=== PATIENT | female | born 1965 | race Caucasian/White ===

== ENCOUNTER → 2017-09-20 10:36 | Outpatient (CLI) | payer MEDICARE, MEDICAID, SELFPAY ==
[2017-09-20 11:06] LABS: Basophils # 0.1 K/mm3 (0-0.2); Basophils % 0.6 % (0.1-2.0); Eosinophils # 0.6 K/mm3 (0.0-0.4); Eosinophils % 7.2 % (0.1-12.0); Hematocrit 47.4 % (37.0-47.0); Hemoglobin 14.7 g/dL (12.2-16.2); Lymphocytes # 1.6 K/mm3 (0.7-4.5); Lymphocytes % 20.6 K/mm3 (10-50); Mean Corpuscular HGB Conc 31.1 g/dL (31.8-35.4); Mean Corpuscular Hemoglobin 26.6 pg (27.0-31.2); Mean Corpuscular Volume 85.6 fl (81-99); Mean Platelet Volume 8.2 fl (7.4-10.4); Monocytes # 0.2 K/mm3 (0.1-1.0); Neutrophils # 5.4 K/mm3 (1.8-7.8); Neutrophils % 68.6 % (37.0-80.0); Platelet Count 258 K/mm3 (142-424); Red Blood Count 5.54 M/mm3 (4.20-5.40); Red Cell Distribution Width 14.7 % (11.5-17.5); White Blood Count 7.9 K/mm3 (4.8-10.8)
[2017-09-20 12:53] LABS: Alanine Aminotransferase 47 U/L (12-78); Albumin Level 3.7 gm/dL (3.4-5.0); Albumin/Globulin Ratio 1.2 (1.1-1.8); Alkaline Phosphatase 180 U/L (46-116); Anion Gap 9.2 mEq/L (5-15); Aspartate Amino Transferase 21 U/L (15-37); Bilirubin,Total 0.3 mg/dL (0.2-1.0); Blood Urea Nitrogen 7 mg/dL (7-18); Calcium 8.6 mg/dL (8.5-10.1); Carbon Dioxide 32 mmol/L (21.0-32.0); Chloride 102 mmol/L (98-107); Chol/HDL Ratio 4.8 (1-3.5); Cholesterol 157 mg/dL (140-200); Creatinine,Serum 0.75 mg/dL (0.55-1.02); Estimated Glomerular Filt Rate > 60 ml/min (>60); GFR (African American) > 60 ML/MIN (>60); Glucose 152 mg/dL (74-106); HDL Cholesterol 33 mg/dL (29-89); LDL Cholesterol 87 mg/dL (0-130); Potassium 4.2 mmoL/L (3.5-5.1); Sodium 139 mmol/L (136-145); Total Protein,Serum 6.7 gm/dL (6.4-8.2); Triglycerides 186 mg/dL (30-200); VLDL Cholesterol 37 mg/dL (0-40)
[2017-09-20 13:28] LABS: Erythrocyte Sedimentation Rate 0 mm/hr (0-30)
[2017-09-20 13:29] LABS: Ferritin 243 ng/mL (8-388); Thyroid Stimulating Hormone 2.22 uIU/ml (0.358-3.740)
[2017-09-22 17:14] LABS: Vitamin B12 644 pg/mL (232-1245)
== END ==
PROVIDERS: PCP Nurse Practitioner Family; Visit Provider Nurse Practitioner Family
DX: D50.9 Iron deficiency anemia, unspecified (principal); I10 Essential (primary) hypertension; R53.82 Chronic fatigue, unspecified; M79.7 Fibromyalgia; R73.9 Hyperglycemia, unspecified
CPT/HCPCS: 36415; 80053; 80061; 82607; 82728; 84443; 85025; 85651

== ENCOUNTER → 2018-03-08 15:53 | Outpatient (CLI) | payer MEDICARE, MEDICAID, SELFPAY ==
--- NOTE | 2018-03-08 15:59 | XR_ITS ---
XR foot LT min 3V Ordering Physician: Stephenie Oakes Patient Age: 53 years: Female HISTORY: ITS.REASON: LEFT FOOT PAIN Left foot pain. Injury yesterday. Pain at the top of foot. TECHNIQUE: 3 views of the left foot COMPARISON : FINDINGS No fracture nor dislocation. Toes. Metatarsals intact. The tarsals unremarkable. Mild diffuse soft tissue swelling at the foot most evident dorsally. IMPRESSION: No fracture . Soft tissue swelling of foot most evident dorsal
== END ==
PROVIDERS: PCP Nurse Practitioner Family; Visit Provider Nurse Practitioner Family
DX: M79.672 Pain in left foot (principal)
CPT/HCPCS: 73630

== ENCOUNTER → 2018-03-23 10:28 | Outpatient (CLI) | payer MEDICARE, MEDICAID, SELFPAY ==
--- NOTE | 2018-03-23 10:32 | MM_ITS ---
MM Dig screening mamm BI w/CAD ORDERING PHYSICIAN : Stephenie Oakes PATIENT AGE: 53 years GENDER: Female COMPARISON: November 2016, December 2014, April 2012. INDICATION: ITS.REASON: SCREENING No hormones no new complaints Family history. Maternal grandmother with breast cancer age 70 postmenopausal. TECHNIQUE: Standard CC and MLO images were obtained. R2 CAD reviewed. . additional CC nipple profile views bilateral included FINDINGS: Minimal fibrotic elements with moderate fatty replacement No dominant mass nor suspicious calcifications. No architectural distortion. CAD computer review highlights no areas of concern Bilateral follow-up one year adequate IMPRESSION: No areas of significant concern Stable bilateral mammogram. Follow up one year BI-RADS Category: 1 Negative RECOMMENDED FOLLOW-UP: 1YR 1 YEAR FOLLOW-UP (A letter has been sent to the patient regarding results of the study.)
[2018-03-23 11:13] LABS: Basophils # 0.1 K/mm3 (0-0.2); Basophils % 0.7 % (0.1-2.0); Eosinophils # 0.3 K/mm3 (0.0-0.4); Eosinophils % 4.3 % (0.1-12.0); Hematocrit 46.3 % (37.0-47.0); Hemoglobin 14.6 g/dL (12.2-16.2); Lymphocytes # 1.7 K/mm3 (0.7-4.5); Lymphocytes % 21.2 K/mm3 (10-50); Mean Corpuscular HGB Conc 31.6 g/dL (31.8-35.4); Mean Corpuscular Volume 85.7 fl (81-99); Mean Platelet Volume 8.4 fl (7.4-10.4); Monocytes # 0.2 K/mm3 (0.1-1.0); Monocytes % 2.4 % (1.7-9.3); Neutrophils # 5.7 K/mm3 (1.8-7.8); Neutrophils % 71.4 % (37.0-80.0); Platelet Count 233 K/mm3 (142-424); Red Cell Distribution Width 14.4 % (11.5-17.5); White Blood Count 7.9 K/mm3 (4.8-10.8)
[2018-03-23 11:35] LABS: Hemoglobin A1C 7.8 % (0.0-7.0)
[2018-03-23 12:13] LABS: Alanine Aminotransferase 55 U/L (12-78); Albumin Level 3.6 gm/dL (3.4-5.0); Albumin/Globulin Ratio 1.2 (1.1-1.8); Alkaline Phosphatase 167 U/L (46-116); Anion Gap 12.1 mEq/L (5-15); Aspartate Amino Transferase 29 U/L (15-37); Bilirubin,Total 0.2 mg/dL (0.2-1.0); Blood Urea Nitrogen 9 mg/dL (7-18); Calcium 8.7 mg/dL (8.5-10.1); Carbon Dioxide 30 mmol/L (21.0-32.0); Chloride 101 mmol/L (98-107); Cholesterol 144 mg/dL (140-200); Estimated Glomerular Filt Rate 75 ml/min (>60); GFR (African American) 91 ML/MIN (>60); Glucose 174 mg/dL (74-106); HDL Cholesterol 24 mg/dL (29-89); LDL Cholesterol 91 mg/dL (0-130); Potassium 4.1 mmoL/L (3.5-5.1); Sodium 139 mmol/L (136-145); Total Protein,Serum 6.6 gm/dL (6.4-8.2); Triglycerides 144 mg/dL (30-200); VLDL Cholesterol 29 mg/dL (0-40)
== END ==
PROVIDERS: Family Provider Nurse Practitioner Family; PCP Nurse Practitioner Family; Visit Provider Nurse Practitioner Family
DX: Z12.31 Encounter for screening mammogram for malignant neoplasm of breast (principal); I10 Essential (primary) hypertension; R73.9 Hyperglycemia, unspecified; J44.9 Chronic obstructive pulmonary disease, unspecified
CPT/HCPCS: 36415; 77067; 80053; 80061; 83036; 85025

== ENCOUNTER → 2018-04-03 08:41 | Outpatient (CLI) | payer MEDICARE, MEDICAID, SELFPAY | PROVIDERS: Family Provider Nurse Practitioner Family; PCP Nurse Practitioner Family; Visit Provider Nurse Practitioner Family | DX: Z71.3 Dietary counseling and surveillance (principal); E11.9 Type 2 diabetes mellitus without complications | CPT/HCPCS: 97802; G0108 ==

== ENCOUNTER → 2018-07-09 11:33 | Outpatient (CLI) | payer MEDICARE, MEDICAID, SELFPAY ==
[2018-07-09 11:48] LABS: Adenovirus F 40/41, stool Not Detected (NotDetected); Astrovirus Not Detected (NotDetected); Campylobacter Not Detected (NotDetected); Clostridium Difficile A/B, PCR Not Detected (NotDetected); Cryptosporidium Not Detected (NotDetected); Cyclospora Cayetanesis Not Detected (NotDetected); Entamoeba histolytica Not Detected (NotDetected); Enteroaggregative E coli Not Detected (NotDetected); Enteropathogenic E coli Not Detected (NotDetected); Enterotoxigenic E coli Not Detected (NotDetected); Giardia lamblia Not Detected (NotDetected); Norovirus Not Detected (NotDetected); Plesimonas Shigalloides, PCR Not Detected (NotDetected); Rotavirus A Not Detected (NotDetected); Salmonella, PCR Not Detected (NotDetected); Sapovirus Not Detected (NotDetected); Shiga-like toxin E coli Not Detected (NotDetected); Shigella Enterovasive E coli Not Detected (NotDetected); Vibrio Cholerae Not Detected (NotDetected); Vibrio, PCR Not Detected (NotDetected); Yersinia Entercolitica, PCR Not Detected (NotDetected)
[2018-07-09 12:07] LABS: Basophils % 0.5 % (0.1-2.0); Eosinophils # 0.2 K/mm3 (0.0-0.4); Eosinophils % 2.9 % (0.1-12.0); Hematocrit 40.8 % (37.0-47.0); Hemoglobin 13.4 g/dL (12.2-16.2); Lymphocytes # 1.7 K/mm3 (0.7-4.5); Lymphocytes % 20.9 K/mm3 (10-50); Mean Corpuscular HGB Conc 32.8 g/dL (31.8-35.4); Mean Corpuscular Hemoglobin 27.9 pg (27.0-31.2); Mean Corpuscular Volume 84.9 fl (81-99); Mean Platelet Volume 8.4 fl (7.4-10.4); Monocytes # 0.3 K/mm3 (0.1-1.0); Monocytes % 3.3 % (1.7-9.3); Neutrophils % 72.3 % (37.0-80.0); Platelet Count 238 K/mm3 (142-424); Red Blood Count 4.81 M/mm3 (4.20-5.40); Red Cell Distribution Width 15.3 % (11.5-17.5); White Blood Count 8.3 K/mm3 (4.8-10.8)
[2018-07-09 12:27] LABS: Hemoglobin A1C 6.7 % (0.0-7.0)
[2018-07-09 12:43] LABS: Alanine Aminotransferase 46 U/L (12-78); Albumin Level 3.3 gm/dL (3.4-5.0); Albumin/Globulin Ratio 1.1 (1.1-1.8); Alkaline Phosphatase 132 U/L (46-116); Anion Gap 9.3 mEq/L (5-15); Aspartate Amino Transferase 24 U/L (15-37); Bilirubin,Total 0.3 mg/dL (0.2-1.0); Blood Urea Nitrogen 11 mg/dL (7-18); Calcium 8.6 mg/dL (8.5-10.1); Carbon Dioxide 32 mmol/L (21.0-32.0); Chloride 103 mmol/L (98-107); Creatinine,Serum 0.71 mg/dL (0.55-1.02); Estimated Glomerular Filt Rate 86 ml/min (>60); GFR (African American) 105 ML/MIN (>60); Globulin 3.1 gm/dl (1.3-3.2); Glucose 123 mg/dL (74-106); Potassium 4.3 mmoL/L (3.5-5.1); Sodium 140 mmol/L (136-145); Total Protein,Serum 6.4 gm/dL (6.4-8.2)
== END ==
PROVIDERS: PCP Nurse Practitioner Family; Visit Provider Nurse Practitioner Family
DX: E11.9 Type 2 diabetes mellitus without complications (principal); R39.15 Urgency of urination
CPT/HCPCS: 36415; 80053; 83036; 85025; 87507

== ENCOUNTER → 2018-08-14 13:45 | Outpatient (CLI) | payer MEDICARE, MEDICAID, SELFPAY ==
--- NOTE | 2018-08-14 13:47 | CT_ITS ---
CT abdomen pelvis wo con CLINICAL INDICATION: Chronic UTIs, urinary tract infection ITS.REASON: chronic uti ORDERING PHYSICIAN: Troy Silverio MD PATIENT AGE: 53 years COMPARISON: 07/28/2015 TECHNIQUE: Axial images obtained with sagittal and coronal reformats. All CT scans at the facility use one or more dose reduction, viz: automated exposure control, ma/kV adjustment per patient size (including targeted exams where dose is matched to indication, i.e. head), or iterative reconstruction technique. PROCEDURE: Oral Contrast: None IV Contrast: None . FINDINGS: No acute finding in the lung bases. There is diffuse fatty liver infiltration. There has been a prior cholecystectomy. Spleen, adrenal glands, and pancreas have an unremarkable unenhanced appearance. No renal or ureteral calculi. There is a isodensity involving the medial aspect of the left kidney at 16 mm suggesting a small renal cyst. There are scattered small lymph nodes in the mesentery. Unremarkable appendix. No evidence of intestinal obstruction or free air. Prior hysterectomy. No evidence of diverticulitis. No pelvic mass abnormal fluid collection or focal inflammatory change evident within the pelvis. No acute bony findings. IMPRESSION: 1. No acute abdominal or pelvic findings. 2. Diffuse fatty liver 3. Possible small left renal cyst which may be confirmed with ultrasound if clinically warranted
== END ==
PROVIDERS: PCP Nurse Practitioner Family; Visit Provider Urology
DX: N39.0 Urinary tract infection, site not specified (principal)
CPT/HCPCS: 74176

== ENCOUNTER → 2019-01-03 10:46 | Outpatient (CLI) | payer MEDICARE, MEDICAID, SELFPAY ==
[2019-01-03 11:22] LABS: Basophils # 0.1 K/mm3 (0-0.2); Basophils % 0.6 % (0.1-2.0); Eosinophils # 0.3 K/mm3 (0.0-0.4); Hematocrit 42.4 % (37.0-47.0); Hemoglobin 14.1 g/dL (12.2-16.2); Lymphocytes # 1.5 K/mm3 (0.7-4.5); Lymphocytes % 18.2 % (10-50); Mean Corpuscular HGB Conc 33.1 g/dL (31.8-35.4); Mean Corpuscular Hemoglobin 26.9 pg (27.0-31.2); Mean Corpuscular Volume 81.1 fl (81-99); Mean Platelet Volume 8.2 fl (7.4-10.4); Monocytes # 0.3 K/mm3 (0.1-1.0); Neutrophils # 6.4 K/mm3 (1.8-7.8); Neutrophils % 75.1 % (37.0-80.0); Platelet Count 279 K/mm3 (142-424); Red Blood Count 5.23 M/mm3 (4.20-5.40); Red Cell Distribution Width 15.2 % (11.5-17.5); White Blood Count 8.5 K/mm3 (4.8-10.8)
[2019-01-03 13:44] LABS: Alanine Aminotransferase 38 U/L (12-78); Albumin Level 3.5 gm/dL (3.4-5.0); Albumin/Globulin Ratio 1.2 (1.1-1.8); Alkaline Phosphatase 114 U/L (46-116); Anion Gap 13.1 mEq/L (5-15); Aspartate Amino Transferase 14 U/L (15-37); Bilirubin,Total 0.3 mg/dL (0.2-1.0); Blood Urea Nitrogen 12 mg/dL (7-18); Calcium 7.8 mg/dL (8.5-10.1); Carbon Dioxide 32 mmol/L (21.0-32.0); Chloride 99 mmol/L (98-107); Chol/HDL Ratio 6.3 (1-3.5); Cholesterol 145 mg/dL (140-200); Creatinine,Serum 0.83 mg/dL (0.55-1.02); Estimated Glomerular Filt Rate 72 ml/min (>60); GFR (African American) 87 ML/MIN (>60); Glucose 147 mg/dL (74-106); HDL Cholesterol 23 mg/dL (29-89); LDL Cholesterol 83 mg/dL (0-130); Potassium 3.1 mmoL/L (3.5-5.1); Sodium 141 mmol/L (136-145); Total Protein,Serum 6.5 gm/dL (6.4-8.2); Triglycerides 195 mg/dL (30-200); VLDL Cholesterol 39 mg/dL (0-40)
== END ==
PROVIDERS: Visit Provider Nurse Practitioner Family
DX: Z00.00 Encounter for general adult medical examination without abnormal findings (principal); E11.9 Type 2 diabetes mellitus without complications
CPT/HCPCS: 36415; 80053; 80061; 83036; 85025

== ENCOUNTER → 2019-02-07 11:51 | Outpatient (CLI) | payer MEDICARE, MEDICAID, SELFPAY ==
[2019-02-07 13:07] LABS: Anion Gap 15.5 mEq/L (5-15); Blood Urea Nitrogen 10 mg/dL (7-18); Calcium 8.3 mg/dL (8.5-10.1); Carbon Dioxide 28 mmol/L (21.0-32.0); Chloride 99 mmol/L (98-107); Creatinine,Serum 0.82 mg/dL (0.55-1.02); Estimated Glomerular Filt Rate 73 ml/min (>60); GFR (African American) 89 ML/MIN (>60); Glucose 211 mg/dL (74-106); Potassium 3.5 mmoL/L (3.5-5.1); Sodium 139 mmol/L (136-145)
== END ==
PROVIDERS: Visit Provider Nurse Practitioner Family
DX: E87.6 Hypokalemia (principal)
CPT/HCPCS: 36415; 80048

== ENCOUNTER → 2019-03-14 10:51 | Outpatient (CLI) | payer MEDICARE, MEDICAID, SELFPAY ==
--- NOTE | 2019-03-14 11:02 | XR_ITS ---
XR KUB HISTORY: ITS.REASON: INCONTINENCE OF FECES ORDERING PHYSICIAN: Stephenie Oakes APRN PATIENT AGE: 54 years COMPARISON: None FINDINGS: The bowel gas pattern is unremarkable. No obvious obstruction.. No abnormal calcifications are evident. No obvious renal or ureteral calculi.. There are clips from cholecystectomy in right upper quadrant. There is no acute osseous process. There is a 3 mm round sclerotic density overlying the inferior left ischium. IMPRESSION: No acute process. Cholecystectomy. Left ischial small sclerotic density could be benign bone island. Correlate with history to rule out osteoblastic process.
--- NOTE | 2019-03-14 11:03 | XR_ITS ---
XR knee LT 4V HISTORY: ITS.REASON: LT KNEE PAIN,CHRONIC PAIN ORDERING PHYSICIAN: Stephenie Oakes APRN PATIENT AGE: 54 years COMPARISON: None FINDINGS: No fracture or dislocation. No lytic or blastic change. Normal mineralization. No significant arthritic changes evident. No other significant findings IMPRESSION: Negative Knee
== END ==
PROVIDERS: PCP Nurse Practitioner Family; Visit Provider Nurse Practitioner Family
DX: R15.9 Full incontinence of feces (principal); M25.562 Pain in left knee; G89.29 Other chronic pain
CPT/HCPCS: 73564; 74018

== ENCOUNTER → 2019-03-28 14:13 | Outpatient (CLI) | payer MEDICARE, MEDICAID, SELFPAY ==
--- NOTE | 2019-03-28 14:17 | MR_ITS ---
MR lumbar spine wo con, MR 3-d myelogram/MRCP HISTORY: Numbness from waist down. [id number]. Tingling and pain down bilateral legs. No trauma. ITS.REASON: DDD, LOW BACK PAIN ORDERING PHYSICIAN: Stephenie Oakes APRN PATIENT AGE: 54 years Comparison: MRI 03-25-16. TECHNIQUE: Standard multiplanar multiecho sequences are performed without contrast. 3-D MIP and myelographic images are also rendered and reviewed FINDINGS: There is normal alignment. The spinal cord ends at the T12-L1 level. T11-T12: Unremarkable. T12-L1: Unremarkable. L1-L2: Mild degenerative disc disease with minimal bulging disc. L2-L3: Unremarkable. L3-L4: Mild degenerative disc disease with minimal bulging disc. L4-L5: Mild concentric bulging disc with minimal anterolisthesis of L4 on L5 with mild facet and ligamentum flavum hypertrophy and mild bilateral lateral recess and foraminal narrowing. L5-S1: Mild facet hypertrophic change. No disc herniation or bony canal stenosis IMPRESSION: Mild degenerative changes as described above. Please see above for detailed description at each level. No significant change from the previous exam. No disc herniation or bony canal stenosis
--- NOTE | 2019-03-28 15:09 | CT_ITS ---
CT pelvis wo con INDICATION: Anterior and posterior pelvic pain, evaluate left ischium, possible blastic lesion, ITS.REASON: DDD,LOW BACK PAIN, ORDERING PHYSICIAN: Stephenie Oakes APRN PATIENT AGE: 54 years COMPARISON: 03/14/2019 TECHNIQUE: Contrast Used:None Oral Contrast: None Axial images were obtained. Sagittal and coronal reformatted images are reviewed as well. All CT scans at the facility use one or more dose reduction, viz: automated exposure control, ma/kV adjustment per patient size (including targeted exams where dose is matched to indication, i.e. head), or iterative reconstruction technique. FINDINGS: There is a well-circumscribed sclerotic focus in the left ischium measuring approximately 6 mm consistent with a bone island. This does appear stable. There are facet arthritic changes at L4-L5 and L5-S1 with bilateral foraminal narrowing. No pelvic mass abnormal fluid collection or other significant anomalies. There has been a prior hysterectomy. IMPRESSION: 1. Sclerotic focus in the left ischium appears benign the bone island. 2. Facet arthritic changes in the lumbar spine
== END ==
PROVIDERS: PCP Nurse Practitioner Family; Visit Provider Nurse Practitioner Family
DX: M54.5 Low back pain (principal); M51.37 Other intervertebral disc degeneration, lumbosacral region; M95.9 Acquired deformity of musculoskeletal system, unspecified
CPT/HCPCS: 72148; 72192; 76376

== ENCOUNTER → 2019-05-27 09:20 | Outpatient (CLI) | payer MEDICARE, MEDICAID, SELFPAY ==
[2019-05-27 10:00] LABS: Hemoglobin A1C 6.7 % (0.0-7.0)
[2019-05-27 10:05] LABS: Basophils % 0.4 % (0.1-2.0); Eosinophils # 0.3 K/mm3 (0.0-0.4); Eosinophils % 4.1 % (0.1-12.0); Hematocrit 41.3 % (37.0-47.0); Hemoglobin 13.3 g/dL (12.2-16.2); Lymphocytes # 1.7 K/mm3 (0.7-4.5); Lymphocytes % 19.9 % (10-50); Mean Corpuscular HGB Conc 32.3 g/dL (31.8-35.4); Mean Corpuscular Volume 80.4 fl (81-99); Mean Platelet Volume 7.5 fl (7.4-10.4); Monocytes # 0.4 K/mm3 (0.1-1.0); Monocytes % 4.4 % (1.7-9.3); Neutrophils # 5.9 K/mm3 (1.8-7.8); Neutrophils % 71.1 % (37.0-80.0); Platelet Count 346 K/mm3 (142-424); Red Blood Count 5.14 M/mm3 (4.20-5.40); White Blood Count 8.3 K/mm3 (4.8-10.8)
[2019-05-27 10:55] LABS: Alanine Aminotransferase 28 U/L (12-78); Albumin Level 3.3 gm/dL (3.4-5.0); Albumin/Globulin Ratio 1.1 (1.1-1.8); Alkaline Phosphatase 116 U/L (46-116); Anion Gap 9.6 mEq/L (5-15); Aspartate Amino Transferase 16 U/L (15-37); Bilirubin,Total 0.3 mg/dL (0.2-1.0); Blood Urea Nitrogen 9 mg/dL (7-18); Calcium 8.2 mg/dL (8.5-10.1); Carbon Dioxide 35 mmol/L (21.0-32.0); Chloride 100 mmol/L (98-107); Chol/HDL Ratio 5.7 (1-3.5); Cholesterol 137 mg/dL (140-200); Creatinine,Serum 0.74 mg/dL (0.55-1.02); Estimated Glomerular Filt Rate 82 ml/min (>60); GFR (African American) 99 ML/MIN (>60); Glucose 138 mg/dL (74-106); HDL Cholesterol 24 mg/dL (29-89); LDL Cholesterol 78 mg/dL (0-130); Potassium 3.6 mmoL/L (3.5-5.1); Sodium 141 mmol/L (136-145); Total Protein,Serum 6.3 gm/dL (6.4-8.2); Triglycerides 176 mg/dL (30-200); VLDL Cholesterol 35 mg/dL (0-40)
== END ==
PROVIDERS: Visit Provider Nurse Practitioner Family
DX: E11.9 Type 2 diabetes mellitus without complications (principal)
CPT/HCPCS: 36415; 80053; 80061; 83036; 85025

== ENCOUNTER → 2019-06-17 09:11 | Outpatient (CLI) | payer MEDICARE, MEDICAID, SELFPAY ==
--- NOTE | 2019-06-17 09:13 | XR_ITS ---
PROCEDURE: XR DEXA AXIAL SKELETON CLINICAL HISTORY: POST MENOPAUSAL SCREENING COMPARISON: ABDPELW/O CT ABD PELVIS W/O CONTRAST from 07/28/2015 FINDINGS: Lumbar spine (L1 through L4), BMD 1.02, T-score -1.3. There is some false elevation of the bone density measurement at the L1 level which could be from sclerotic changes overlying the L1 spinous process. Right hip (neck), BMD 0.84, T-score -1.4. IMPRESSION: Osteopenia without osteoporosis. Possible sclerotic changes involving L1 spinous process. Suggest routine plain film exam of lumbar spine to further evaluate. Dictated by: Ilya Vargas 06/17/2019 12:05 Electronically signed by Ilya Vargas in [place] 06/17/2019 12:05
--- NOTE | 2019-06-17 09:14 | MM_ITS ---
PROCEDURE: MM DIG SCREENING MAMM BI W/CAD CLINICAL INDICATION: SCREENING There is a history of breast cancer in the patient's maternal grandmother. COMPARISON: [facility] DIG MAMM-SCREEN LU from 01/15/2015 [facility] DIG MAMM-SCREEN LU W/CAD from 12/02/2016 [facility] MM Dig screening mamm BI w/CAD from 03/23/2018 TECHNIQUE: Standard CC and MLO images were obtained. R2 CAD reviewed. FINDINGS: Scattered fibroglandular densities are seen in both breasts and the findings of bilateral and symmetrical. However there is a possible asymmetric density upper-outer quadrant left breast which was not definitely seen on the most recent study. It is best seen on the CC view it shows slightly irregular borders and recommend the patient return for spot compression views and ultrasound may be necessary as well. There are no suspicious microcalcifications. IMPRESSION: Fibrofatty parenchyma with possible new asymmetric lesion upper outer quadrant left breast BI-RAD Category: 0 Need Additional Imaging Evaluation FOLLOW-UP: IMM Immediate Follow-up Recommended (A letter has been sent to the patient regarding results of the study.) Dictated by: Dr. Charles Still MD 06/18/2019 13:[address] Charles Still MD in [place] 06/18/2019 13:44
== END ==
PROVIDERS: PCP Nurse Practitioner Family; Visit Provider Nurse Practitioner Family
DX: Z13.820 Encounter for screening for osteoporosis (principal); Z78.0 Asymptomatic menopausal state; Z12.31 Encounter for screening mammogram for malignant neoplasm of breast
CPT/HCPCS: 77067; 77080

== ENCOUNTER 2019-06-17 14:30 | Outpatient (RCR) | payer MEDICARE, MEDICAID, SELFPAY ==
--- NOTE | 2019-06-06 13:34 | HMH.PTOPEV ---
PT Outpatient Evaluation Rehab PT Outpatient Evaluation Start: 06/06/19 11:11 Freq: Status: Active Protocol: Document 06/06/19 11:12 DEMETRIO (Rec: 06/06/19 11:50 DEMETRIO [id number]) Electronically Signed By Temo Mayer, PT 06/06/19 11:12 Outpatient Therapy Subjective History Subjective History Pt reports h/o chronic L knee pain beginning ~1 yr ago, however, reports exacerbation over the last ~3-4 months. Pt reports mostly anterior region L knee pain, with some referred pain into [place] area. Pt reports recent injection ~1 week ago 'seemed to help a little at first, but it's about the same now'. Chief Complaint Pain,Stiff,Clicks,Swelling, Weakness Symptom Type Ache,Sharp,Dull Symptoms Relieved By Rest/Positioning Symptoms Aggravated By Standing,Physical Activity, Walking Prior Functional Limitations Housework,Standing,Walking Current Functional Limitations Housework,Standing,Squatting, Walking,Stairs Symptom Description Constant but Variable Level of pain today (0-10) 9 Pain scale - at its best (0-10) 8 Pain scale - at its worst (0-10) 10 Hip/Knee Eval Gait Observation General Gait Pattern Observation Antalgic Gait Assistive Device Assistive Devices None / NA Palpation Tenderness left Knee Palpation Finding Tenderness Knee Palpation Overall Comment 3/4 medial and lateral jt line MMT right Hip Flexion Strength Grade 4 Good Hip Abduction Strength Grade 4- Good- Hip Adduction Strength Grade 4- Good- Hip Extension Strength Grade 4- Good- Hip External Rotation Strength Grade 4 Good Hip Internal Rotation Strength Grade 4 Good Knee Extension Strength Grade 5 Normal Knee Flexion Strength Grade 5 Normal left Hip Flexion Strength Grade 4 Good Hip Abduction Strength Grade 4- Good- Hip Adduction Strength Grade 4- Good- Hip Extension Strength Grade 4- Good- Hip External Rotation Strength Grade 4 Good Hip Internal Rotation Strength Grade 4- Good- Knee Extension Strength Grade 4 Good Knee Flexion Strength Grade 4 Good ROM right Knee Flexion Active Range of Motion ( 0-135 degrees) Knee ROM Reason Not Measured Within Functional Limits left Knee Flexion Active Range of Motion ( 0-120 degrees) Knee ROM Limitations Pain Effusion joint effusion knee exa
== END 2019-06-17 14:35 | disposition home or self-care (01) ==
LOC: PT 14:30
PROVIDERS: PCP Nurse Practitioner Family; Visit Provider Orthopaedic Surgery
DX: M22.42 Chondromalacia patellae, left knee (principal)
CPT/HCPCS: 97010; 97014; 97033; 97035; 97110; 97163; G0283

== ENCOUNTER → 2019-07-01 14:31 | Outpatient (CLI) | payer MEDICARE, MEDICAID, SELFPAY ==
--- NOTE | 2019-07-01 14:33 | MM_ITS ---
PROCEDURE: MM DIG MAMM DX UNILAT LT CAD CLINICAL INDICATION: ABNORMAL MAMM possible new asymmetric density COMPARISON: [facility] DIG MAMM-SCREEN LU W/CAD from 12/02/2016 [facility] MM Dig screening mamm BI w/CAD from 03/23/2018 MM DIG SCREENING MAMM BI W/CAD from 06/17/2019 TECHNIQUE: Standard CC and MLO images were obtained. Additional spot compression views obtained in the MLO and CC projection R2 CAD reviewed. FINDINGS: The possible asymmetric density appears to press out on the additional views and is likely simply an area of asymmetric glandular tissue. There is no evidence of architectural distortion. IMPRESSION: Negative problem solving views BI-RAD Category: 1 Negative FOLLOW-UP: 1YR 1 Year Follow-up (A letter has been sent to the patient regarding results of the study.) Dictated by: Dr. Charles Stlil MD 07/04/2019 16:[address] Charles Still MD in [place] 07/04/2019 16:21
--- NOTE | 2019-07-01 14:34 | US_ITS ---
PROCEDURE: US BREAST LT COMPLETE CLINICAL INDICATION: ABNORMAL MAMM Possible new asymmetric density COMPARISON: No exams were available for comparison FINDINGS: Mild diffuse echogenic parenchymal pattern is seen with no suspicious solid lesions seen. There is a tiny benign-appearing cystic lesion at the 3 o'clock position near the nipple. There is normal appearing node in the axilla. IMPRESSION: Essentially negative ultrasound left breast recommend the patient continue with yearly screening mammography Dictated by: Dr. Charles Still MD 07/04/2019 16:[address] Charles Still MD in [place] 07/04/2019 16:24
== END ==
PROVIDERS: PCP Nurse Practitioner Family; Visit Provider Nurse Practitioner Family
DX: R92.8 Other abnormal and inconclusive findings on diagnostic imaging of breast (principal)
CPT/HCPCS: 76641; 77065

== ENCOUNTER → 2019-07-11 10:53 | Outpatient (CLI) | payer MEDICARE, MEDICAID, SELFPAY ==
--- NOTE | 2019-07-11 11:00 | XR_ITS ---
PROCEDURE: XR LUMBAR SPINE MIN 4V CLINICAL INDICATION: BONYSCLEROSIS COMPARISON: TSPWO CT THORACIC SPINE W/O CONT. from 10/17/2012 XR DEXA AXIAL SKELETON from 06/17/2019 FINDINGS: Normal alignment. No fracture or dislocation. L1-L2 but no sclerotic lesion apparent. There is mild anterolisthesis of L4 on L5 of 3 mm and mild degenerative disc disease at L5-S1 along with mild facet arthritic change at L5-S1. IMPRESSION: Mild degenerative changes. No sclerotic/blastic lesions apparent Dictated by: Frank Augustine MD 07/11/2019 14:15 Electronically signed by Frank Augustine MD in [place] 07/11/2019 14:15
== END ==
PROVIDERS: PCP Internal Medicine Adolescent Medicine; Visit Provider Nurse Practitioner Family
DX: Q78.2 Osteopetrosis (principal)
CPT/HCPCS: 72110

== ENCOUNTER → 2019-07-25 13:46 | Outpatient (CLI) | payer MEDICARE, BC, MEDICAID, SELFPAY ==
--- NOTE | 2019-07-25 13:48 | MR_ITS ---
PROCEDURE: MR KNEE LT WO CON CLINICAL INDICATION: left knee pain Left knee pain COMPARISON: No exams were available for comparison TECHNIQUE: Routine multiplanar multi echo sequences are performed without gadolinium enhancement. FINDINGS: The cruciate ligaments, collateral ligaments, patellar tendon, and quadriceps tendon appear intact. There is some increased T2 signal within the patellar tendon distally suggesting tendinosis/tendinopathy. No obvious meniscal tear. There is some mild thinning of patellar cartilage superiorly with decreased T1 and increased T2 signal in the superior aspect of the patella posterior surface. There is a small knee joint effusion. Mild osteoarthritic changes are present involving all 3 compartments IMPRESSION: 1. No evidence of internal derangement of the knee. 2. Mild osteoarthritic changes involving all 3 compartments. 3. Focal decreased T1 and increased T2 signal along the superior medial aspect of the patella posteriorly suggesting an area of osteochondritis dissecans with some mild chondromalacia at this region with small knee joint effusion Dictated by: Frank Augustine MD 07/27/2019 05:20 Electronically signed by Frank Augustine MD in [place] 07/27/2019 05:20
== END ==
PROVIDERS: PCP Nurse Practitioner Family; Visit Provider Orthopaedic Surgery
DX: M25.562 Pain in left knee (principal)
CPT/HCPCS: 73721

== ENCOUNTER → 2019-07-29 13:12 | Outpatient (POV) | payer MEDICARE, MEDICAID, SELFPAY | PROVIDERS: PCP Internal Medicine Adolescent Medicine; Visit Provider Nurse Practitioner Family | DX: Z00.00 Encounter for general adult medical examination without abnormal findings (principal) ==

== ENCOUNTER → 2019-08-01 09:51 | Outpatient (CLI) | payer MEDICARE, MEDICAID, SELFPAY ==
[2019-08-01 10:01] LABS: Adenovirus F 40/41, stool Not Detected (NotDetected); Astrovirus Not Detected (NotDetected); Campylobacter Not Detected (NotDetected); Clostridium Difficile A/B, PCR Not Detected (NotDetected); Cryptosporidium Not Detected (NotDetected); Cyclospora Cayetanesis Not Detected (NotDetected); Entamoeba histolytica Not Detected (NotDetected); Enteroaggregative E coli Not Detected (NotDetected); Enteropathogenic E coli Not Detected (NotDetected); Enterotoxigenic E coli Not Detected (NotDetected); Giardia lamblia Not Detected (NotDetected); Norovirus Not Detected (NotDetected); Plesimonas Shigalloides, PCR Not Detected (NotDetected); Rotavirus A Not Detected (NotDetected); Salmonella, PCR Not Detected (NotDetected); Sapovirus Not Detected (NotDetected); Shiga-like toxin E coli Not Detected (NotDetected); Shigella Enterovasive E coli Not Detected (NotDetected); Vibrio Cholerae Not Detected (NotDetected); Vibrio, PCR Not Detected (NotDetected); Yersinia Entercolitica, PCR Not Detected (NotDetected)
== END ==
PROVIDERS: Visit Provider Nurse Practitioner Family
DX: R14.0 Abdominal distension (gaseous) (principal); R19.4 Change in bowel habit; R19.7 Diarrhea, unspecified
CPT/HCPCS: 87506

== ENCOUNTER → 2019-09-23 13:12 | Outpatient (POV) | payer MEDICARE, BC, SELFPAY | PROVIDERS: Visit Provider Nurse Practitioner Family | DX: Z00.00 Encounter for general adult medical examination without abnormal findings (principal) ==

== ENCOUNTER → 2019-10-14 12:06 | Outpatient (CLI) | payer MEDICARE, BC, SELFPAY ==
--- NOTE | 2019-10-14 12:12 | XR_ITS ---
PROCEDURE: XR KNEE LT 4V CLINICAL INDICATION: knee pain COMPARISON: [id number] KNEE-3 VIEWS-RT from 07/14/2015 MR KNEE LT WO CON from 07/25/2019 FINDINGS: No fracture or dislocation. No lytic or blastic change. There is normal mineralization. There is very slight decrease in joint space medially and minimal spurring along superior aspect of patella which may be due to early osteoarthritic change. Other findings:None. IMPRESSION: Minimal osteoarthritic change medial compartment and patellofemoral joint Dictated by: Frank Augustine MD 10/14/2019 12:34 Electronically signed by Frank Aguustine MD in [place] 10/14/2019 12:34
== END ==
PROVIDERS: PCP Nurse Practitioner Family; Visit Provider Orthopaedic Surgery
DX: M17.12 Unilateral primary osteoarthritis, left knee (principal)
CPT/HCPCS: 73564

== ENCOUNTER → 2019-10-17 14:24 | Outpatient (CLI) | payer MEDICARE, BC, SELFPAY ==
--- NOTE | 2019-10-17 14:24 | MR_ITS ---
PROCEDURE: MR KNEE LT WO CON CLINICAL INDICATION: knee pain Knee pain and swelling COMPARISON: MR KNEE LT WO CON from 07/25/2019 TECHNIQUE: Routine multiplanar multi echo sequences are performed without gadolinium enhancement. FINDINGS: The fibers of the anterior cruciate ligament are somewhat ill-defined which could be due to a sprain/low-grade injury. A complete tear is not felt to be present.. There is slight increased signal intensity in the inferior aspect of the medial collateral ligament which may be due to sprain. The lateral collateral ligament, patellar tendon, and quadriceps tendon have an unremarkable appearance. Along the inferior margin of the posterior horn of the medial meniscus there is a small area of increased T2 signal with some offset of the meniscal fragments consistent with a small tear.. The lateral meniscus has an unremarkable appearance. There is some mild thinning of the patellar cartilage superiorly with some minimal increased T2 signal along the posterior patella superiorly and medially. There is a small knee joint effusion. IMPRESSION: 1. There is a small nondisplaced tear along the posterior horn of the medial meniscus at the inferior surface 2. Suspect low grade injury of the anterior cruciate ligament. 3. Osteochondrosis of the patella superiorly Dictated by: Frank Augustine MD 10/19/2019 15:58 Electronically signed by Frank Augustine MD in [place] 10/19/2019 15:58
== END ==
PROVIDERS: PCP Nurse Practitioner Family; Visit Provider Orthopaedic Surgery
DX: M17.12 Unilateral primary osteoarthritis, left knee (principal)
CPT/HCPCS: 73721

== ENCOUNTER → 2019-11-05 10:59 | Outpatient (CLI) | payer MEDICARE, BC, SELFPAY ==
[2019-11-05 11:38] LABS: Basophils # 0.1 K/mm3 (0-0.2); Basophils % 0.6 % (0.1-2.0); Eosinophils # 0.3 K/mm3 (0.0-0.4); Eosinophils % 3.8 % (0.1-12.0); Hematocrit 38.1 % (37.0-47.0); Hemoglobin 12.2 g/dL (12.2-16.2); Lymphocytes # 1.7 K/mm3 (0.7-4.5); Lymphocytes % 19.3 % (10-50); Mean Corpuscular Hemoglobin 25.3 pg (27.0-31.2); Mean Corpuscular Volume 79.1 fl (81-99); Mean Platelet Volume 8.2 fl (7.4-10.4); Monocytes # 0.2 K/mm3 (0.1-1.0); Monocytes % 2.7 % (1.7-9.3); Neutrophils # 6.5 K/mm3 (1.8-7.8); Neutrophils % 73.6 % (37.0-80.0); Platelet Count 275 K/mm3 (142-424); Red Blood Count 4.82 M/mm3 (4.20-5.40); Red Cell Distribution Width 15.8 % (11.5-17.5); White Blood Count 8.8 K/mm3 (4.8-10.8)
[2019-11-05 13:01] LABS: Alanine Aminotransferase 30 U/L (12-78); Albumin Level 3.5 g/dl (3.5-5.0); Albumin/Globulin Ratio 1.3 (1.1-1.8); Alkaline Phosphatase 102 U/L (38-126); Anion Gap 9.3 mEq/L (5-15); Aspartate Amino Transferase 28 U/L (14-36); Blood Urea Nitrogen 11 mg/dl (7-17); Calcium 7.8 mg/dl (8.4-10.2); Carbon Dioxide 35 mmol/L (22.0-30.0); Chloride 97 mmol/L (98-107); Chol/HDL Ratio 4.7 (1-3.5); Cholesterol 131 mg/dl (140-200); Estimated Glomerular Filt Rate 105 ml/min (>60); GFR (African American) 127 ML/MIN (>60); Globulin 2.6 g/dL (1.3-3.2); Glucose 121 mg/dl (74-100); HDL Cholesterol 28 mg/dl (40-60); Potassium 3.3 mmoL/L (3.5-5.1); Sodium 138 mmol/L (136-145); Total Protein,Serum 6.1 g/dl (6.3-8.2); Triglycerides 164 mg/dl (30-150); VLDL Cholesterol 33 mg/dL (0-40)
[2019-11-05 13:03] LABS: Hemoglobin A1C 7.4 % (4.0-6.0)
[2019-11-05 14:57] LABS: Bilirubin,Total 0.1 mg/dl (0.2-1.3)
== END ==
PROVIDERS: Visit Provider Nurse Practitioner Family
DX: I10 Essential (primary) hypertension (principal); E11.9 Type 2 diabetes mellitus without complications; J44.9 Chronic obstructive pulmonary disease, unspecified
CPT/HCPCS: 36415; 80053; 80061; 83036; 85025

== ENCOUNTER 2020-05-31 13:29 | Emergency (ER) | payer MEDICARE, BC, SELFPAY ==
[2020-05-31 13:46] VITALS: BP 120/80; PULSE 68; RESP 20; O2SAT 98; BMI 28.3
--- NOTE | 2020-05-31 13:51 | XR_ITS ---
PROCEDURE: XR ANKLE LT MIN 3V CLINICAL INDICATION: fall complaining of pain and swelling COMPARISON: No exams were available for comparison FINDINGS: There is mild diffuse soft tissue swelling especially laterally. There is a nondisplaced spiral oblique fracture of the distal fibula just above the lateral malleolus. The medial malleolus is intact. The ankle mortise appears normal. There is a tiny bone fragment adjacent to the medial malleolus possibly due to old injury. IMPRESSION: Nondisplaced spiral oblique fracture distal fibula with associated diffuse soft tissue swelling laterally Dictated by: Dr. Charles Still MD 05/31/2020 15:45 Dr. Charles Still MD in [place] 05/31/2020 15:45
--- NOTE | 2020-05-31 13:51 | XR_ITS ---
PROCEDURE: XR KNEE LT 3V CLINICAL INDICATION: fall COMPARISON: CR XR KNEE LT 4V from 10/14/2019 FINDINGS: No fracture or dislocation. No lytic or blastic change. There is normal mineralization. There is minor joint space narrowing medially and there is minor spurring of the tibial spines. There may be a small amount of fluid in the suprapatellar bursa. The patella is intact. IMPRESSION: Minor degenerate changes, question possible small joint effusion Dictated by: Dr. Charles Still MD 05/31/2020 15:43 Dr. Charles Still MD in [place] 05/31/2020 15:43
--- NOTE | 2020-05-31 13:51 | XR_ITS ---
PROCEDURE: XR FOOT LT MIN 3V CLINICAL INDICATION: fall COMPARISON: No exams were available for comparison FINDINGS: No fracture or dislocation. No lytic or blastic change. There is normal mineralization. The joint spaces are well-preserved. No significant degenerative/arthritic changes. No erosive changes evident. Other findings:None. IMPRESSION: No acute findings. Dictated by: Dr. Charles Still MD 05/31/2020 15:46 Dr. Charles Still MD in [place] 05/31/2020 15:46
--- NOTE | 2020-05-31 13:56 | HMH.EDFALL ---
ED Disposition Clinical Impression: Ankle fracture, left Qualifiers: Encounter type: initial encounter Fracture type: closed Qualified Code(s): S82.892A - Other fracture of left lower leg, initial encounter for closed fracture Disposition: Home, Self-Care Condition on Discharge: Fair Prescriptions: Hydrocod/Acet 5/325 mg [[place] 5/325mg tablet] 1 tab PO Q6HP PRN #14 tab PRN Reason: pain Prescription Printed Referrals: Stephenie Oakes APRN [Primary Care Provider] - - Critical Care Critical Care Time: No Attestation: On , the high probability of a clinically significant, sudden or life threatening deterioration of the following system(s) required my full and direct attention, intervention and personal management. The time I documented below is in addition to time spent performing reported procedures but includes the following listed in this critical care notation. Medical Decision Making - Medical Records Medical records reviewed: Yes: I reviewed the patient's medical records. - Mo Inquiry Pt receiving controlled substance: Yes Mo was queried for this patient: Yes Reference #:: [id number] Risks and benefits of using a controlled substance: were discussed with pt by me Vital Signs: 05/31/20 13:46 05/31/20 13:58 Pulse Rate [Radial] 68 74 Respiratory Rate 20 20 Blood Pressure [Right Arm] 120/80 124/66 Blood Pressure Mean [Right Arm] 93 85 Blood Pressure Source [Right Arm] Automatic Cuff Automatic Cuff Blood Pressure Position [Right Arm] Sitting 02 Sat by Pulse Oximetry 98 97 Oxygen Delivery Method Room Air Orders (Tests/Meds): ED MEDICATIONS Discontinued Medications Generic Name Dose Route Start Last Admin Trade Name Freq PRN Reason Stop Dose Admin Ketorolac Tromethamine 60 mg 05/31/20 14:03 Toradol 60mg/2ml Vial IM 05/31/20 14:04 ONCE ONE Orphenadrine Citrate 60 mg 05/31/20 14:03 Norflex 60mg/2ml Vial IM 05/31/20 14:04 ONCE ONE ORDERS Category Date Time Status Knee XR left 2 views [XR knee LT 2V] Stat Exams 05/31/20 13:51 Ordered XR ankle LT 2V Stat Exams 05/31/20 13:51 Ordered XR foot LT 2V Stat Exams 05/31/20 13:51 Ordered - Radiology Data #1 Image(s): Ankle Image Reviewed: Yes I reviewed the patient's radiology results L. lateral malleolus fx; non-displaced #2 Image(s): Knee Image Reviewed: Yes I reviewed the patient's radiology results Preliminary Findings: Normal/NAD Fall HPI - General Chief Complaint: Fall Stated Complaint: fell ao05/31/20 left ankle pain Time Seen by Provider: 05/31/20 13:50 Mode of Arrival: Wheelchair Source of Information: Patient Limitations: No Limitations Description of Symptoms (Recalled from ER Triage Doc. by RN): Fell getting out of a camper and injured Left ankle and had recently had surgery on the left knee. - History of Present Illness HPI Narrative: This is a 55-year-old female that presents with left knee and ankle pain after sustaining fall approximately 1 hour prior to arrival. Pain is dull and aching and constant. Exacerbated by ambulation weightbearing. Pain is moderate intensity at present. Patient reported following out of her camper and turning the knee as well as everting the ankle at the time of injury. No other injuries noted. - Related Data Home Medications Medication Instructions Recorded Confirmed amitriptyline 100 mg tablet 100 mg PO DAILY 08/07/18 10/21/19 bisoprolol fumarate 5 mg tablet 5 mg PO DAILY 08/07/18 10/21/19 budesonide-formoterol HFA 160 2 puff INHALATION BID 08/07/18 10/21/19 mcg-4.5 mcg/actuation aerosol inhaler citalopram 40 mg tablet 40 mg PO DAILY 08/07/18 10/21/19 cyclobenzaprine 10 mg tablet 10 mg PO HS tab 08/07/18 10/21/19 fluticasone propionate 50 2 inh INHALATION Q12H 08/07/18 10/21/19 mcg/actuation blister powder for inhalation ibuprofen 600 mg tablet 600 mg PO TID 08/07/18 10/21/19 lisinopril 20 mg tablet
[2020-05-31 13:58] VITALS: BP 124/66; PULSE 74; RESP 20; O2SAT 97
[2020-05-31 14:44] VITALS: BP 163/65; PULSE 71; RESP 20; O2SAT 97
[2020-05-31 14:47] VITALS: BP 163/65; PULSE 71; RESP 20; TEMP 36.8; O2SAT 97
== END 2020-05-31 14:50 | disposition home or self-care (01) ==
PROVIDERS: Emergency Provider Emergency Medicine; PCP Nurse Practitioner Family
DX: S82.892A Other fracture of left lower leg, initial encounter for closed fracture (principal); W17.89XA Other fall from one level to another, initial encounter; Y92.89 Other specified places as the place of occurrence of the external cause; I10 Essential (primary) hypertension; J44.9 Chronic obstructive pulmonary disease, unspecified; K21.9 Gastro-esophageal reflux disease without esophagitis; M79.7 Fibromyalgia; F17.210 Nicotine dependence, cigarettes, uncomplicated; Z79.899 Other long term (current) drug therapy; Z90.49 Acquired absence of other specified parts of digestive tract; Z90.710 Acquired absence of both cervix and uterus
CPT/HCPCS: 29505; 73562; 73610; 73630; 96372; 99284

== ENCOUNTER → 2020-06-04 14:47 | Outpatient (CLI) | payer MEDICARE, BC, SELFPAY ==
--- NOTE | 2020-06-04 14:54 | XR_ITS ---
PROCEDURE: XR ANKLE LT MIN 3V CLINICAL INDICATION: ankle fx Follow-up fracture COMPARISON: CR XR ANKLE LT MIN 3V from 05/31/2020 FINDINGS: Cast has been placed stabilizing the oblique fracture of the distal fibula with good alignment. The ankle mortise is preserved. Small calcific density is present at the medial malleolar region could be due to an avulsion injury. IMPRESSION: No change nondisplaced oblique fracture of the distal fibula with possible avulsion fracture the medial malleolus Dictated by: Frank Augustine MD 06/04/2020 16:36 Frank Augustine MD in [place] 06/04/2020 16:36
== END ==
PROVIDERS: PCP Nurse Practitioner Family; Visit Provider Orthopaedic Surgery
DX: S82.892A Other fracture of left lower leg, initial encounter for closed fracture (principal)
CPT/HCPCS: 73610

== ENCOUNTER → 2020-06-08 09:42 | Outpatient (CLI) | payer MEDICARE, BC, SELFPAY ==
[2020-06-08 09:45] LABS: MANUAL DIFFERENTIAL MANUAL DIFFERENTIAL (MANUAL DIFF)
[2020-06-08 10:41] LABS: Basophils # 0.1 K/mm3 (0-0.2); Basophils % 0.6 % (0.1-2.0); Eosinophils # 0.4 K/mm3 (0.0-0.4); Eosinophils % 4.7 % (0.1-12.0); Hematocrit 41.8 % (37.0-47.0); Hemoglobin 13.8 g/dL (12.2-16.2); Lymphocytes # 1.7 K/mm3 (0.7-4.5); Lymphocytes % 20.9 % (10-50); Mean Corpuscular Hemoglobin 25.8 pg (27.0-31.2); Mean Corpuscular Volume 78.3 fl (81-99); Mean Platelet Volume 7.7 fl (7.4-10.4); Monocytes # 0.3 K/mm3 (0.1-1.0); Monocytes % 3.4 % (1.7-9.3); Neutrophils # 5.7 K/mm3 (1.8-7.8); Neutrophils % 70.5 % (37.0-80.0); Platelet Count 334 K/mm3 (142-424); Red Blood Count 5.34 M/mm3 (4.20-5.40); White Blood Count 8.1 K/mm3 (4.8-10.8)
--- NOTE | 2020-06-08 11:25 | XR_ITS ---
PROCEDURE: XR CHEST 2V CLINICAL HISTORY: HTN,H/O TOBACCO DEPENDENCE COMPARISON: CR CXR CHEST(2 VIEWS-NOT PORTABLE) from 05/28/2014 CR CXR CHEST(2 VIEWS-NOT PORTABLE) from 02/06/2017 CR CXR CHEST(2 VIEWS-NOT PORTABLE) from 04/11/2017 FINDINGS: The cardiomediastinal silhouette and pulmonary vascularity are within normal limits. The lungs are clear without infiltrates, suspicious nodules, or pleural effusions. Postsurgical changes are present in the lower cervical spine. There is a bone island in the right humeral head IMPRESSION: No acute findings. Dictated by: Frank Augustine MD 06/08/2020 13:16 Frank Augustine MD in [place] 06/08/2020 13:16
[2020-06-08 11:32] LABS: Chloride 99 mmol/L (98-107); Potassium 4.3 mmoL/L (3.5-5.1); Sodium 138 mmol/L (136-145)
[2020-06-08 11:35] LABS: Alanine Aminotransferase 36 U/L (12-78); Albumin/Globulin Ratio 1.7 (1.1-1.8); Alkaline Phosphatase 99 U/L (38-126); Anion Gap 14.3 mEq/L (5-15); Aspartate Amino Transferase 38 U/L (14-36); Bilirubin,Total 0.3 mg/dl (0.2-1.3); Blood Urea Nitrogen 13 mg/dl (7-17); Carbon Dioxide 29 mmol/L (22.0-30.0); Estimated Glomerular Filt Rate 104 ml/min (>60); GFR (African American) 126 ML/MIN (>60); Globulin 2.4 g/dL (1.3-3.2); Total Protein,Serum 6.4 g/dl (6.3-8.2)
[2020-06-08 11:36] LABS: Calcium 9.6 mg/dl (8.4-10.2); Glucose 136 mg/dl (74-100)
[2020-06-08 11:59] LABS: Eosinophils % 3 % (0-3); Lymphocytes % 25 % (10-50); Monocytes % 3 % (2-9); Neutrophils % 69 % (42-76); Platelet Estimate Normal; RBC Morphology Normal; Total Cells Counted 100
--- NOTE | 2020-06-08 12:06 | ECG_ITS ---
APPROVED REPORT Exam: Resting ECG HR:84 bpm ECG Measurements Heart Rate 84 AXES TX 138 P 60 QRSd 88 QRS 80 QT 386 T 20 QTc 456 <Conclusion> Normal sinus rhythm Late r wave progression Abnormal ECG Electronically signed by : Otis Bray, 06/08/2020 20:52:30
[2020-06-08 12:12] LABS: Hemoglobin A1C 7.6 % (4.0-6.0)
[2020-06-08 12:42] LABS: Coronavirus 19 IgG Antibody Negative (Negative); Coronavirus 19 IgM Antibody Negative (Negative)
== END ==
PROVIDERS: Visit Provider Podiatrist
DX: S82.892A Other fracture of left lower leg, initial encounter for closed fracture (principal); E55.9 Vitamin D deficiency, unspecified; J44.9 Chronic obstructive pulmonary disease, unspecified; Z72.0 Tobacco use; Z79.84 Long term (current) use of oral hypoglycemic drugs; E11.9 Type 2 diabetes mellitus without complications; Z01.818 Encounter for other preprocedural examination
CPT/HCPCS: 36415; 71046; 80053; 82306; 83036; 85007; 85014; 85018; 85048; 85049; 86328; 93005

== ENCOUNTER 2020-06-10 05:58 | Day surgery (SDC) | payer MEDICARE, BC, SELFPAY ==
[2020-06-08 14:04] VITALS: BMI 28.3
[2020-06-10] VITALS (14 sets, daily range): BP systolic 105–146; BP diastolic 57–68; PULSE 76–92; RESP 14–23; TEMP 36.1–43; O2SAT 92–100
--- NOTE | 2020-06-10 06:59 | P.PN_ITS ---
[facility] [place] Anesthesia Checklist - Patient Identification Patient Identification: Arm Band, Verbal (Name & ) - Structural Data Admitted From: Home Planned Operative Procedure/s: orif left ankle Consent for Planned Operative Procedure(s) Verified: Yes Verified Documents: History and Physical - NPO Status Verified Time NPO: 00:00 - Additional verifications Patient : No Anesthesia Reactions: No Hx Blood Transfusions: No Blood Transfusion Reaction: No Cephalosporin Allergy: No Previous Colonoscopy: No - Cardiovascular Assessment Heart Sounds: S1 & S2 Pulse Strength: Baseline Pulse Rhythm: Regular Peripheral Edema: No - Airway Assessment C-Spine Mobility Assessed: Yes TMJ Mobility Assessed: Yes Dentition: Edentulous - Neurological Assessment Level of Consciousness: Awake, Alert, Appropriate Hx Seizures: No Numbness or tingling in extremities: No - Anesthesia Plan Anesthesia Risk discussed: Yes Anesthesia Plan: Verified ASA Class: III Anesthesia Type: General w/block [facility] [place] History I have reviewed the patient's past medical history: Yes Medical History: Reports:: Chronic Obstructive Pulmonary Disease (COPD), Diabetes Mellitus Type 2, Gastroesophageal Reflux Disease(GERD), Hypertension Denies:: Cancer, Diabetes Mellitus Type 1, MRSA, Seizures *Have you ever received a pneumonia vaccine?: Yes *Have you received a flu vaccine this season?: Yes Other Medical History: Reports: Anemia, Fibromyalgia, Other. Denies: Blood Transfusion Reaction Anesthesia experience/problems:: none Laterality Cases: Left: Carpal Tunnel Release, Right: Arthroscopy Shoulder Other Surgeries: Yes: Cholecystectomy, Colonoscopy, Hysterectomy-Total, Other Amputation: No - *Social History Last grade of school completed: GED Smoking Status: Current every day smoker Tobacco Type: cigarettes # Packs/Day (cigarettes): 1 Alcohol Intake: never Substance Use Type: other *Occupational Status:: other Housing: house *Travel in the last 8 weeks: None Family Hx:: No significant family history
--- NOTE | 2020-06-10 07:24 | HMH.OPNOTE ---
Date of procedure: 06/10/20 Pre-op Diagnosis:: 1. Left bimalleolar ankle fracture 2. Left ankle synovitis 3. Left ankle pain Post-op Diagnosis:: Same Procedure performed:: 1. Left ankle (distal fibula) ORIF (with injectable bone graft) 2. Left syndesmosis ORIF 3. Left medial ankle arthrotomy 4. Left ankle synovectomy 5. Application of amniotic tissue graft 6. Application of posterior splint Surgeon:: Cindy Escamilla DPM Contact Lens Edge Buffer(s):: Michelle Landeros PHARMACEUTICAL SALES SPECIALIST:: Otis Wright Anesthesia: GETA, regional (Left popliteal nerve block) Estimated blood loss (mL): 20 Clinical Note:: Left bimalleolar ankle fracture: Patient had a twisting injury off the back of a camper 05/31/2020. She came to the ER the same day and had x-rays which showed an ankle fracture. Foot x-rays negative for acute fracture dislocation. Patient was placed in a splint and saw Dr. Izaguirre 06/04/2020 who referred her to [place] for surgical evaluation and treatment. X-rays 3 views of left ankle and foot taken 05/31/20 reviewed and compared to left ankle x-rays 06/04/20. Report noted. FINDINGS: Cast has been placed stabilizing the oblique fracture of the distal fibula with good alignment. The ankle mortise is preserved. Small calcific density is present at the medial malleolar region could be due to an avulsion injury. IMPRESSION: No change nondisplaced oblique fracture of the distal fibula with possible avulsion fracture the medial malleolus. X-rays reviewed and discussed with the patient. Conservative treatment discussed but not recommended. DOI: 05/31/20. We discussed diabetes and possible Charcot with trauma. At this time patient does not present with a Charcot foot but we did review the risks and education handout given. We discussed surgery. All risks and benefits were discussed including but not limited to: damage to blood vessels and nerves, bleeding, infection, wound complications, delayed, mal or non-union of bone, post-traumatic arthritis, need for further surgery, need for removal of implant, prolonged swelling of the extremity, prolonged pain, CRPS/RSD, DVT, and anesthetic complications. No guarantees were given. All questions fully answered. The patient verbalized understanding and agreed to proceed with surgery. Consent was obtained. Patient denies circulation complications, denies stenting to the heart or lower extremity, denies ulcers or difficulty healing. We discussed obtaining an ANTIONETTE for baseline due to her diabetes. We did not get insurance approval and medical records show she has had ABIs in the past which had normal pulses and waveforms. Clinically she does have pulses and dopplerable pulses. Discussed we can repeat ABIs in the future if she has difficulty healing incision. Patient verbalized understanding and accepts these risks. We reviewed DVT prophylaxis and risk of DVT/PE after surgery. Patient is overweight and will be immobilized. Recommend aspirin 81 mg postoperatively. Necessary labs and pre-op testing ordered: CBC, BMP, Ha1c, EKG, CXR. COVID negative. Pt was given a e-Rx for [place] 7.5/325 #30, Zofran, Motrin. She has crutches, walker and wheelchair at home. PCP: Isatu Oakes granted medical clearance. Operative findings:: Left ankle edema and erythema improved from visit. Left distal fibula fracture, spiral oblique with 2 major fracture fragments. Small fracture noted to the distal anterior fibula separate from the oblique fracture. The bone was soft and brittle. Medial arthrotomy to evaluate of medial malleolus avulsion fracture. There was not a transverse fracture, old healed injury. Synovitic scar tissue noted to the area and ankle joint. Some syndesmotic widening stabilized with fixation. Injectable bone graft and injectable amniotic tissue was utilized to aid in healing of the soft tissue in the bone due to the patient being diabetic, smoker with poor bone quality. Operative note:: On this date and time patient was deemed an appropriate surgical candidate. Pre-
--- NOTE | 2020-06-10 09:06 | XR_ITS ---
PROCEDURE: XR ANKLE LT 2V CLINICAL INDICATION: ORIF LEFT ANKLE COMPARISON: CR XR ANKLE LT MIN 3V from 05/31/2020 FINDINGS: Fluoroscopy time: 1 minutes and 24 seconds. 2 images submitted show placement of a lateral bone plate at the distal fibula with a translucent fixator stabilizing the tib fib syndesmosis with good alignment. IMPRESSION: Status post ORIF with good alignment Dictated by: Frank Augustine MD 06/10/2020 16:55 Frank Augustine MD in [place] 06/10/2020 16:55
--- NOTE | 2020-06-10 09:15 | XR_ITS ---
PROCEDURE: XR ANKLE LT MIN 3V CLINICAL INDICATION: Post op ORIF ankle COMPARISON: CR XR ANKLE LT MIN 3V from 05/31/2020 CR XR ANKLE LT MIN 3V from 06/04/2020 FINDINGS: Status post ORIF distal fibular fracture with translucent fixator within the distal tib fib stabilizing the ankle mortise with good alignment. Posterior splint is present. IMPRESSION: Good alignment status post ORIF distal fibular fracture Dictated by: Frank Augustine MD 06/10/2020 16:54 Frank Augustine MD in [place] 06/10/2020 16:54
--- NOTE | 2020-06-10 09:20 | P.PN_ITS ---
[facility] Anesthesia Record Part I Intake, IV Amount: 1,200 Estimated blood loss (mL): 10 Urine output (mL): 0 (NM) Blood Products used (#): none Blood Pressure: 120/59 SaO2: 93 Pulse Rate: 87 Respiratory Rate: 14 Temperature: 98.3 F Patient is:: Drowsy, Nasal O2, Stable Stable to PACU at:: 09:13
--- NOTE | 2020-06-10 12:33 | HMH.ANESII ---
[facility] Anesthesia Record Part II Discharge Time: 09:56 Destination: Surgical Day Care (OP Surgery) PACU nurse assessment reviewed?: Yes Patient Condition:: Good Anesthesia Complications:: None Swallowing reflex intact?: Yes Cyanosis?: No Blood Pressure: 131/57 Pulse Rate: 87 Temperature: 98 F Mental Status: Alert & Oriented Pain level:: 0 Nausea and/or vomitting:: None Intake, IV Amount: 0
[2020-06-10 21:26] LABS: POC Glucose,Bedside 125 (70-110)
== END 2020-06-10 10:50 | disposition home or self-care (01) ==
LOC: OR 05:59
PROVIDERS: PCP Nurse Practitioner Family; Visit Provider Podiatrist
PROC: (CPT 27814; principal; 2020-06-10 07:30)
DX: S82.842A Displaced bimalleolar fracture of left lower leg, initial encounter for closed fracture (principal); E11.9 Type 2 diabetes mellitus without complications; Z79.84 Long term (current) use of oral hypoglycemic drugs; Z72.0 Tobacco use; J44.9 Chronic obstructive pulmonary disease, unspecified; W17.89XA Other fall from one level to another, initial encounter; Y92.9 Unspecified place or not applicable; Y99.8 Other external cause status; S93.05XA Dislocation of left ankle joint, initial encounter
CPT/HCPCS: 27814; 73600; 73610; 76000; 82962; 96374; C1713; C1734; C1762; C1776; J2405

== ENCOUNTER → 2020-07-16 08:29 | Outpatient (CLI) | payer MEDICARE, BC, SELFPAY ==
--- NOTE | 2020-07-16 08:36 | XR_ITS ---
PROCEDURE: XR ANKLE WT BEARING LT MIN 3V CLINICAL INDICATION: post-op Follow-up surgery COMPARISON: CR XR ANKLE LT MIN 3V from 05/31/2020 CR XR ANKLE LT MIN 3V from 06/04/2020 CR XR ANKLE LT MIN 3V from 06/10/2020 CR XR ANKLE LT 2V from 06/10/2020 FINDINGS: The posterior splint has been removed. Good alignment status post ORIF distal fibular fracture with syndesmosis repair with translucent fixator. Avulsion injuries noted at the medial malleolar region as before. Fracture line still visible of the distal fibula. IMPRESSION: No change, good alignment status post ORIF tib fib as described above Dictated by: Frank Augustine MD 07/16/2020 10:05 Frank Augustine MD in [place] 07/16/2020 10:05
== END ==
PROVIDERS: PCP Nurse Practitioner Family; Visit Provider Podiatrist
DX: Z98.890 Other specified postprocedural states (principal); S82.892D Other fracture of left lower leg, subsequent encounter for closed fracture with routine healing
CPT/HCPCS: 73610

== ENCOUNTER → 2020-08-12 16:23 | Outpatient (CLI) | payer MEDICARE, BC, SELFPAY | PROVIDERS: PCP Nurse Practitioner Family; Visit Provider Internal Medicine Adolescent Medicine | DX: Z03.818 Encounter for observation for suspected exposure to other biological agents ruled out (principal) | CPT/HCPCS: U0003 ==

== ENCOUNTER → 2020-08-20 10:10 | Outpatient (CLI) | payer MEDICARE, BC, SELFPAY ==
--- NOTE | 2020-08-20 10:14 | XR_ITS ---
PROCEDURE: XR ANKLE WT BEARING LT MIN 3V CLINICAL INDICATION: post-op Follow-up surgery COMPARISON: CR XR ANKLE LT MIN 3V from 06/04/2020 CR XR ANKLE LT 2V from 06/10/2020 CR XR ANKLE LT MIN 3V from 06/10/2020 CR XR ANKLE WT BEARING LT MIN 3V from 07/16/2020 FINDINGS: There is a lateral fibular bone plate stabilizing distal fibular fracture. Fracture line still visible. There is developing callus formation. Translucent fixators present at the tib fib region IMPRESSION: Postsurgical changes with healing distal fibular fracture with good alignment Dictated by: Frank Augustine MD 08/20/2020 17:34 Frank Augustine MD in [place] 08/20/2020 17:34
== END ==
PROVIDERS: PCP Nurse Practitioner Family; Visit Provider Podiatrist
DX: Z98.890 Other specified postprocedural states (principal)
CPT/HCPCS: 73610

== ENCOUNTER → 2020-09-03 10:31 | Outpatient (CLI) | payer MEDICARE, BC, SELFPAY ==
--- NOTE | 2020-09-03 10:35 | XR_ITS ---
PROCEDURE: XR FOOT WT BEARING RT 3V CLINICAL INDICATION: stress fracture f/u COMPARISON: CR [id number] XR foot LT min 3V from 03/08/2018 CR XR FOOT LT MIN 3V from 05/31/2020 FINDINGS: No fracture or dislocation. No lytic or blastic change. There is normal mineralization. The joint spaces are well-preserved. No significant degenerative/arthritic changes. No erosive changes evident. Other findings:None. IMPRESSION: No acute findings. Dictated by: Frank Augustine MD 09/03/2020 13:52 Frank Augustine MD in [place] 09/03/2020 13:52
--- NOTE | 2020-09-03 10:57 | XR_ITS ---
PROCEDURE: XR FOOT WT BEARING LT 3V CLINICAL INDICATION: pain COMPARISON: CR [id number] XR foot LT min 3V from 03/08/2018 CR XR FOOT LT MIN 3V from 05/31/2020 CR XR ANKLE WT BEARING LT MIN 3V from 08/20/2020 FINDINGS: No fracture or dislocation. No lytic or blastic change. There is normal mineralization. The joint spaces are well-preserved. No significant degenerative/arthritic changes. No erosive changes evident. Other findings:There are postsurgical changes with a bone plate at the distal fibula. There is borderline pes planus IMPRESSION: Negative foot Dictated by: Frank Augustine MD 09/03/2020 13:49 Frank Augustine MD in [place] 09/03/2020 13:49
== END ==
PROVIDERS: PCP Nurse Practitioner Family; Visit Provider Podiatrist
DX: M84.374A Stress fracture, right foot, initial encounter for fracture (principal); M79.671 Pain in right foot
CPT/HCPCS: 73630

== ENCOUNTER 2020-09-08 15:00 | Outpatient (RCR) | payer MEDICARE, BC, SELFPAY ==
--- NOTE | 2020-07-24 13:42 | HMH.PTOPEV ---
PT Outpatient Evaluation Rehab PT Outpatient Evaluation Start: 07/24/20 13:04 Freq: Status: Active Protocol: Document 07/24/20 13:28 PHONG (Rec: 07/24/20 13:42 PHONG [id number]) Electronically Signed By Polo Palmer, PT 07/24/20 13:28 Outpatient Therapy Subjective History Subjective History Patient is a 55 year old female presenting to outpatient PT with report of L ankle pain S/P L ankle ORIF for distal fibular fracture ( 7w5d S/P). Patient reports that she was cleaning her camper and slipped and fell resulting in injury. Patient has been NWB until this week with in home mobility mostly in a wheelchair. Comorbidities include hx of L knee arthroscopy (2 months S/P), R knee pain, HTN, fibromyalgia, L RCR, OA and cholecystectomy. Chief Complaint Pain,Stiff,Swelling, Paresthesia Symptom Type Ache,Numbness,Tingling, Shooting Symptoms Relieved By Rest/Positioning,Ice,OTC Meds, Elevation Symptoms Aggravated By Standing,Physical Activity, Walking Prior Functional Limitations None Current Functional Limitations Housework,Standing,Squatting, Recreation Activity,Walking, Stairs,Balance Symptom Description Constant but Variable Level of pain today (0-10) 5 Pain scale - at its best (0-10) 3 Pain scale - at its worst (0-10) 8 Ankle/Foot Eval Gait Observation General Gait Pattern Observation Antalgic Gait,Decrease Weight Bear (L) Assistive Device Ambulation Assistive Device Rolling Walker Palpation Tenderness left Ankle/Foot Palpation Findings Tenderness Ankle/Foot Palpation Overall Comment lateral melleolus 3/4 medial malleolus 2/4 ROM Ankle/Foot Dorsiflexion w/Knee Extended 4 Active Range Motion (degrees) Ankle/Foot Dorsiflexion w/Knee Extended 6 Passive Range (degrees) Ankle/Foot Plantar Flexion Active Range 52 of Motion (degrees) Ankle/Foot Plantar Flexion Passive Range WNL of Motion (degrees) Ankle/Foot Eversion Active Range of 18 Motion (degrees) Ankle/Foot Eversion Passive Range of 20 Motion (degrees) Ankle/Foot I
== END 2020-09-08 15:05 | disposition home or self-care (01) ==
LOC: PT 15:00
PROVIDERS: PCP Nurse Practitioner Family; Visit Provider Podiatrist
DX: S82.892A Other fracture of left lower leg, initial encounter for closed fracture (principal); R60.9 Edema, unspecified; Z98.890 Other specified postprocedural states
CPT/HCPCS: 97014; 97016; 97110; 97112; 97140; 97163; 97760; G0283

== ENCOUNTER 2020-10-01 15:00 | Outpatient (RCR) | payer MEDICARE, BC, SELFPAY | END 2020-10-01 15:05 | disposition home or self-care (01) | LOC: PT 15:00 | PROVIDERS: PCP Nurse Practitioner Family; Visit Provider Orthopaedic Surgery Adult Reconstructive Orthopaedic Surgery | DX: M25.562 Pain in left knee (principal); M25.561 Pain in right knee | CPT/HCPCS: 97014; 97033; 97110; 97163; G0283 ==

== ENCOUNTER → 2020-10-01 15:24 | Outpatient (CLI) | payer MEDICARE, BC, SELFPAY ==
[2020-10-01 16:53] LABS: Uric Acid 5.1 mg/dl (2.5-6.2)
[2020-10-05 18:12] LABS: Albumin 3.6 g/dL (2.9-4.4); Alpha-1-Globulin 0.3 g/dL (0.0-0.4); Alpha-2-Globulin 0.9 g/dL (0.4-1.0); Gamma Globulin 0.7 g/dL (0.4-1.8); Protein, Total 6.6 g/dL (6.0-8.5)
[2020-10-07 10:35] LABS: Anti-Cyclic Citrullinated Pept 5 units (0-19)
[2020-10-07 12:58] LABS: Antinuclear Antibodies, IFA Positive (.)
== END ==
PROVIDERS: Visit Provider Orthopaedic Surgery Adult Reconstructive Orthopaedic Surgery
DX: M25.50 Pain in unspecified joint (principal)
CPT/HCPCS: 36415; 84155; 84165; 84550; 86038; 86200; 86431

== ENCOUNTER → 2020-10-09 09:16 | Outpatient (CLI) | payer MEDICARE, BC, SELFPAY ==
--- NOTE | 2020-10-09 09:19 | MM_ITS ---
PROCEDURE: MM DIG SCREENING MAMM BI W/CAD Digital Breast Tomosynthesis Included CLINICAL INDICATION: SCREENING There is a history of breast cancer in the patient's paternal grandmother. COMPARISON: MG SCBI MM Dig screening mamm BI w/CAD from 03/23/2018 MG MM DIG SCREENING MAMM BI W/CAD from 06/17/2019 MG MM DIG MAMM DX UNILAT LT CAD from 07/01/2019 TECHNIQUE: Standard CC and MLO images and 3D Tomosynthesis was obtained. R2 CAD reviewed. FINDINGS: Mild diffuse scattered fibroglandular densities are seen throughout both breast and the findings are bilateral and symmetrical. There are few scattered benign-appearing microcalcifications in each breast. There is no suspicious lesion and no suspicious microcalcifications. IMPRESSION: Fibrofatty parenchyma with no suspicious lesions seen BI-RAD Category: 2 Benign Finding(s) FOLLOW-UP: 1YR 1 Year Follow-up (A letter has been sent to the patient regarding results of the study.) Dictated by: Dr. Charles Still MD 10/13/2020 14:35 Dr. Charles Still MD in [place] 10/13/2020 14:35
[2020-10-09 10:29] LABS: Basophils # 0.1 K/mm3 (0-0.2); Basophils % 0.8 % (0.1-2.0); Eosinophils # 0.4 K/mm3 (0.0-0.4); Hematocrit 46.1 % (37.0-47.0); Lymphocytes % 19.1 % (10-50); Mean Corpuscular HGB Conc 32.5 g/dL (31.8-35.4); Mean Corpuscular Hemoglobin 24.4 pg (27.0-31.2); Mean Corpuscular Volume 75.2 fl (81-99); Mean Platelet Volume 8.2 fl (7.4-10.4); Monocytes # 0.3 K/mm3 (0.1-1.0); Monocytes % 3.3 % (1.7-9.3); Neutrophils # 7.4 K/mm3 (1.8-7.8); Neutrophils % 72.7 % (37.0-80.0); Platelet Count 384 K/mm3 (142-424); Red Blood Count 6.14 M/mm3 (4.20-5.40); Red Cell Distribution Width 16.8 % (11.5-17.5); White Blood Count 10.2 K/mm3 (4.8-10.8)
[2020-10-09 10:44] LABS: Creatinine,Urine Random 149 mg/dL (Not Estab.)
[2020-10-09 10:54] LABS: Chloride 100 mmol/L (98-107); Potassium 4.3 mmoL/L (3.5-5.1); Sodium 139 mmol/L (136-145)
[2020-10-09 10:56] LABS: Alanine Aminotransferase 49 U/L (12-78); Aspartate Amino Transferase 39 U/L (14-36); Blood Urea Nitrogen 14 mg/dl (7-17); Estimated Glomerular Filt Rate 87 ml/min (>60); GFR (African American) 106 ML/MIN (>60)
[2020-10-09 10:57] LABS: Albumin Level 4.8 g/dl (3.5-5.0); Albumin/Globulin Ratio 1.7 (1.1-1.8); Alkaline Phosphatase 148 U/L (38-126); Anion Gap 11.3 mEq/L (5-15); Bilirubin,Total 0.4 mg/dl (0.2-1.3); Carbon Dioxide 32 mmol/L (22.0-30.0); Chol/HDL Ratio 4.7 (1-3.5); Cholesterol 202 mg/dl (140-200); Globulin 2.8 g/dL (1.3-3.2); Glucose 188 mg/dl (74-100); HDL Cholesterol 43 mg/dl (40-60); Total Protein,Serum 7.6 g/dl (6.3-8.2); Triglycerides 186 mg/dl (30-150); VLDL Cholesterol 37 mg/dL (0-40)
[2020-10-09 11:08] LABS: Direct LDL Cholesterol 125.15 mg/dL (100-129)
[2020-10-09 11:10] LABS: 25-OH Vitamin D, Total 42.7 ng/mL (30-100)
[2020-10-09 11:30] LABS: Hemoglobin A1C 7.7 % (4.0-6.0)
[2020-10-09 11:31] LABS: Ferritin 67.6 ng/ml (11.1-264)
== END ==
PROVIDERS: PCP Nurse Practitioner Family; Visit Provider Nurse Practitioner Family
DX: Z12.31 Encounter for screening mammogram for malignant neoplasm of breast (principal); E11.9 Type 2 diabetes mellitus without complications; I10 Essential (primary) hypertension; M79.7 Fibromyalgia; Z79.84 Long term (current) use of oral hypoglycemic drugs; Z68.28 Body mass index [BMI] 28.0-28.9, adult
CPT/HCPCS: 36415; 77063; 77067; 80053; 80061; 82306; 82570; 82728; 83036; 85025

== ENCOUNTER → 2020-10-19 10:21 | Outpatient (CLI) | payer MEDICARE, BC, SELFPAY ==
--- NOTE | 2020-10-19 10:32 | XR_ITS ---
PROCEDURE: XR ANKLE WT BEARING LT MIN 3V CLINICAL INDICATION: post ankle surgery COMPARISON: CR XR ANKLE LT 2V from 06/10/2020 CR XR ANKLE LT MIN 3V from 06/10/2020 CR XR ANKLE WT BEARING LT MIN 3V from 07/16/2020 CR XR ANKLE WT BEARING LT MIN 3V from 08/20/2020 FINDINGS: Lateral fibular bone plate with translucent fixator from syndesmotic repair once again noted. There is good alignment. There is an old avulsion injury at the medial malleolar region. The distal fibular fracture line appears somewhat less apparent. IMPRESSION: Good alignment status post ORIF distal tib fib Dictated by: Frank Augustine MD 10/19/2020 15:15 Frank Augustine MD in [place] 10/19/2020 15:15
== END ==
PROVIDERS: PCP Nurse Practitioner Family; Visit Provider Podiatrist
DX: Z98.890 Other specified postprocedural states (principal); S82.842D Displaced bimalleolar fracture of left lower leg, subsequent encounter for closed fracture with routine healing
CPT/HCPCS: 73610

== ENCOUNTER → 2020-12-01 09:03 | Outpatient (POV) | payer MEDICARE, BC, SELFPAY | PROVIDERS: Visit Provider Dermatology | DX: Z00.00 Encounter for general adult medical examination without abnormal findings (principal) ==

== ENCOUNTER → 2021-04-27 06:43 | Outpatient (CLI) | payer MEDICARE, BC, SELFPAY ==
--- NOTE | 2021-04-27 06:45 | CT_ITS ---
PROCEDURE: CT ANKLE LT WO CON CLINICAL HISTORY: Ankle pain, fracture evaluation COMPARISON: CR XR ANKLE WT BEARING LT MIN 3V from 10/19/2020 TECHNIQUE: Axial images obtained with sagittal and coronal reformats. All CT scans at the facility use one or more dose reduction, viz: automated exposure control, ma/kV adjustment per patient size (including targeted exams where dose is matched to indication, i.e. head), or iterative reconstruction technique. FINDINGS: A lateral bone plate is present at the distal fibula. Healing fracture is noted with faint residual fracture line noted at the proximal aspect of the fracture at the distal fibular shaft medially. Intramedullary well-circumscribed area of lucency within the distal shaft of the fibula measuring approximately 8 mm and may be result of the previous surgery or cystic changes within an old fracture line. There is a translucent fixator at the distal tib fib region from prior synchondrosis repair. The ankle mortise appears preserved. Old avulsion fractures are noted at the tip of the medial malleolus. The talar dome has an unremarkable appearance. An extra ossicle is noted along the superior aspect of the calcaneocuboid joint. There is minimal sclerosis at the posterior subtalar joint suggesting mild arthritic change. No acute fracture or dislocation is evident. Faint calcification of the soft tissues noted along the anterior aspect of the distal tib fib and could be due to old avulsion or dystrophic calcification. There is some minimal soft tissue swelling at the ankle joint. IMPRESSION: 1. Postsurgical changes of the tib fib as described above with healing fibular fracture. The ankle mortise appears preserved. The talar dome has an unremarkable appearance. There is good alignment. 2. Old avulsion fractures versus dystrophic calcification at the medial malleolar region and the anterior distal tib fib region Dictated by: Frank Augustine MD 04/27/2021 09:04 Frank Augustine MD in [place] 04/27/2021 09:04
== END ==
PROVIDERS: PCP Nurse Practitioner Family; Visit Provider Podiatrist
DX: S82.842A Displaced bimalleolar fracture of left lower leg, initial encounter for closed fracture; Z98.890 Other specified postprocedural states; M25.572 Pain in left ankle and joints of left foot
CPT/HCPCS: 73700

== ENCOUNTER → 2021-05-31 09:18 | Outpatient (CLI) | payer MEDICARE, BC, SELFPAY ==
--- NOTE | 2021-05-31 09:22 | XR_ITS ---
PROCEDURE: XR ANKLE WT BEARING LT MIN 3V CLINICAL INDICATION: charcot/fracture follow up COMPARISON: CR XR ANKLE LT MIN 3V from 06/10/2020 CR XR ANKLE WT BEARING LT MIN 3V from 07/16/2020 CR XR ANKLE WT BEARING LT MIN 3V from 08/20/2020 CR XR ANKLE WT BEARING LT MIN 3V from 10/19/2020 FINDINGS: Prior ORIF distal fibula with lateral bone plate. Screws appear intact as does the bone plate. Prior syndesmotic repair with lucent fixator. The ankle mortise is preserved. No acute fracture or dislocation. No lytic or blastic change. Old avulsion injuries versus hypertrophic change of the medial malleolus stable IMPRESSION: No change, no acute finding status post ORIF Dictated by: Frank Augustine MD 05/31/2021 09:57 Frank Augustine MD in [place] 05/31/2021 09:57
== END ==
PROVIDERS: PCP Nurse Practitioner Family; Visit Provider Podiatrist
DX: M14.672 Charcot's joint, left ankle and foot (principal); S82.832A Other fracture of upper and lower end of left fibula, initial encounter for closed fracture
CPT/HCPCS: 73610

== ENCOUNTER → 2021-06-28 12:06 | Outpatient (CLI) | payer MEDICARE, BC, SELFPAY ==
--- NOTE | 2021-06-28 12:09 | XR_ITS ---
PROCEDURE: XR HAND LT MIN 3V CLINICAL INDICATION: ACUTE PAIN DUE TO TRAUMA, PAIN OF LT THUMB The COMPARISON: CR HANDR3 HAND-RT 3 VIEWS from 01/05/2015 CR HANDL3 HAND-LT-3 VIEWS from 01/05/2015 FINDINGS: There is a faint calcific density along the lateral aspect of the interphalangeal joint of the thumb. This appears well circumscribed and may represent a incidental periarticular calcification as a similar finding is present at the DIP of the 2nd finger. One cannot exclude the possibility of a small avulsion injury. Please correlate with patient's area of pain and tenderness. A triangular-shaped calcific density is present along the dorsal aspect of the 1st carpal metacarpal joint measuring approximately 4 mm x 2 mm. This was likely present on a older study of 01/05/2015 but appears somewhat more prominent Other findings:None. IMPRESSION: No definite acute finding. Periarticular calcifications are present at the thumb 2nd finger and 1st metacarpal-carpal junction which may be chronic. Please correlate as the patient's area of pain and tenderness as avulsion injuries could have a similar appearance. Dictated by: Frank Augustine MD 06/28/2021 12:25 Frank Augustine MD in [place] 06/28/2021 12:25
== END ==
PROVIDERS: PCP Nurse Practitioner Family; Visit Provider Nurse Practitioner Family
DX: M79.645 Pain in left finger(s) (principal); G89.11 Acute pain due to trauma
CPT/HCPCS: 73130

== ENCOUNTER → 2021-07-08 10:49 | Outpatient (CLI) | payer MEDICARE, BC, SELFPAY ==
[2021-07-08 11:47] LABS: Basophils # 0.1 K/mm3 (0-0.2); Basophils % 0.7 % (0.1-2.0); Eosinophils # 0.4 K/mm3 (0.0-0.4); Eosinophils % 5.4 % (0.1-12.0); Hematocrit 40.4 % (37.0-47.0); Lymphocytes # 1.8 K/mm3 (0.7-4.5); Lymphocytes % 22.2 % (10-50); Mean Corpuscular HGB Conc 29.8 g/dL (31.8-35.4); Mean Corpuscular Hemoglobin 21.6 pg (27.0-31.2); Mean Corpuscular Volume 72.6 fl (81-99); Mean Platelet Volume 7.7 fl (7.4-10.4); Monocytes # 0.3 K/mm3 (0.1-1.0); Neutrophils # 5.6 K/mm3 (1.8-7.8); Neutrophils % 68.8 % (37.0-80.0); Platelet Count 365 K/mm3 (142-424); Red Blood Count 5.56 M/mm3 (4.20-5.40); White Blood Count 8.2 K/mm3 (4.8-10.8)
[2021-07-08 12:07] LABS: Hemoglobin A1C 6.6 % (4.0-6.0)
[2021-07-08 12:32] LABS: Chloride 100 mmol/L (98-107); Potassium 4.2 mmoL/L (3.5-5.1); Sodium 139 mmol/L (136-145)
[2021-07-08 12:34] LABS: Blood Urea Nitrogen 6 mg/dl (7-17); Estimated Glomerular Filt Rate 128 ml/min (>60); GFR (African American) 155 ML/MIN (>60)
[2021-07-08 12:35] LABS: Alanine Aminotransferase 40 U/L (12-78); Albumin Level 3.7 g/dl (3.5-5.0); Albumin/Globulin Ratio 1.6 (1.1-1.8); Alkaline Phosphatase 106 U/L (38-126); Anion Gap 12.2 mEq/L (5-15); Aspartate Amino Transferase 37 U/L (14-36); Calcium 8.5 mg/dl (8.4-10.2); Carbon Dioxide 31 mmol/L (22.0-30.0); Cholesterol 129 mg/dl (140-200); Globulin 2.3 g/dL (1.3-3.2); Glucose 116 mg/dl (74-100); Triglycerides 83 mg/dl (30-150); VLDL Cholesterol 17 mg/dL (0-40)
[2021-07-08 12:36] LABS: Bilirubin,Total < 0.1 mg/dl (0.2-1.3); Chol/HDL Ratio 4.2 (1-3.5); HDL Cholesterol 31 mg/dl (40-60)
[2021-07-08 12:46] LABS: Direct LDL Cholesterol 80.91 mg/dL (100-129)
[2021-07-08 13:05] LABS: Thyroid Stimulating Hormone 2.62 uIU/mL (0.465-4.68)
== END ==
PROVIDERS: Visit Provider Nurse Practitioner Family
DX: E11.9 Type 2 diabetes mellitus without complications (principal); R63.4 Abnormal weight loss; Z86.2 Personal history of diseases of the blood and blood-forming organs and certain disorders involving the immune mechanism; Z79.84 Long term (current) use of oral hypoglycemic drugs
CPT/HCPCS: 36415; 80053; 80061; 83036; 84443; 85025

== ENCOUNTER → 2021-07-26 09:11 | Outpatient (CLI) | payer MEDICARE, BC, SELFPAY ==
--- NOTE | 2021-07-26 09:25 | XR_ITS ---
PROCEDURE: XR ANKLE WT BEARING LT MIN 3V CLINICAL INDICATION: fracture eval COMPARISON: CR XR ANKLE WT BEARING LT MIN 3V from 07/16/2020 CR XR ANKLE WT BEARING LT MIN 3V from 08/20/2020 CR XR ANKLE WT BEARING LT MIN 3V from 10/19/2020 CR XR ANKLE WT BEARING LT MIN 3V from 05/31/2021 FINDINGS: Status post ORIF distal fibula with lateral bone plate and translucent fixator with good alignment. The ankle mortise is preserved. Talar dome has an unremarkable appearance. IMPRESSION: Good alignment status post ORIF distal fibula and tib fib synchondrosis Dictated by: Frank Augustine MD 07/26/2021 13:09 Frank Augustine MD in [place] 07/26/2021 13:09
== END ==
PROVIDERS: PCP Nurse Practitioner Family; Visit Provider Podiatrist
DX: S82.832A Other fracture of upper and lower end of left fibula, initial encounter for closed fracture; M25.572 Pain in left ankle and joints of left foot
CPT/HCPCS: 73610

== ENCOUNTER → 2021-07-29 06:41 | Outpatient (CLI) | payer MEDICARE, BC, SELFPAY ==
--- NOTE | 2021-07-29 06:44 | CT_ITS ---
PROCEDURE: CT ANKLE LT WO CON CLINICAL HISTORY: Fracture evaluation COMPARISON: CR XR ANKLE LT MIN 3V from 06/04/2020 CR XR ANKLE WT BEARING LT MIN 3V from 07/26/2021 TECHNIQUE: Axial images obtained with sagittal and coronal reformats. All CT scans at the facility use one or more dose reduction, viz: automated exposure control, ma/kV adjustment per patient size (including targeted exams where dose is matched to indication, i.e. head), or iterative reconstruction technique. FINDINGS: S/p ORIF distal fibula with lateral bone plate and cortical screws with a translucent horizontal fixator at the distal tib fib and medial button at the distal tibia. The ankle mortise is preserved. There is bony union at the lateral and anterior of fracture with some cortical lucency noted posteriorly and medially. The distal end the 3rd from bone plate screw projects medially at the area of the persistent cortical lucency. No evidence screw loosening or bone plate or screw fracture. There are some small ununited fragments versus dystrophic calcification noted at the distal aspect of the medial malleolus and along the anterior aspect of the distal fibula. There is mild subcutaneous edema along the plantar surface of the foot at the calcaneal region.. IMPRESSION: Status post ORIF distal tib fib. Good alignment. Cortical lucency is noted along the superior aspect the [place] fracture suggesting incomplete bony healing medially. There is complete bony healing laterally. The distal end of the 3rd from the top bone plate screw is at the region of this persistent medial cortical lucency. Dictated by: Frank Augustine MD 07/30/2021 06:18 Frank Augustine MD in [place] 07/30/2021 06:18
--- NOTE | 2021-07-29 07:07 | XR_ITS ---
PROCEDURE: XR CHEST 2V CLINICAL HISTORY: TOBACCO USER COMPARISON: CR CXR CHEST(2 VIEWS-NOT PORTABLE) from 02/06/2017 CR CXR CHEST(2 VIEWS-NOT PORTABLE) from 04/11/2017 CR XR CHEST 2V from 06/08/2020 FINDINGS: Borderline cardiomegaly without failure. No CHF. Lungs are clear. The lungs are clear without infiltrates, suspicious nodules, or pleural effusions. No acute bony abnormalities. IMPRESSION: Borderline cardiomegaly otherwise negative Dictated by: Frank Augustine MD 07/29/2021 15:14 Frank Augustine MD in [place] 07/29/2021 15:14
--- NOTE | 2021-07-29 07:19 | ECG_ITS ---
APPROVED REPORT Exam: Resting ECG HR:68 bpm ECG Measurements Heart Rate 68 AXES NV 154 P 56 QRSd 96 QRS 77 QT 408 T 38 QTc 433 Conclusion Normal sinus rhythm Normal ECG Electronically signed by : Otis Bray MD 07/30/2021 13:53:35
[2021-07-29 07:54] LABS: Basophils # 0.1 K/mm3 (0-0.2); Basophils % 0.8 % (0.1-2.0); Eosinophils # 0.5 K/mm3 (0.0-0.4); Hematocrit 39.1 % (37.0-47.0); Hemoglobin 11.9 g/dL (12.2-16.2); Lymphocytes # 2.4 K/mm3 (0.7-4.5); Lymphocytes % 23.1 % (10-50); Mean Corpuscular HGB Conc 30.4 g/dL (31.8-35.4); Mean Corpuscular Hemoglobin 21.5 pg (27.0-31.2); Mean Corpuscular Volume 70.8 fl (81-99); Monocytes # 0.3 K/mm3 (0.1-1.0); Monocytes % 2.9 % (1.7-9.3); Neutrophils # 7.1 K/mm3 (1.8-7.8); Neutrophils % 68.2 % (37.0-80.0); Platelet Count 408 K/mm3 (142-424); Red Blood Count 5.52 M/mm3 (4.20-5.40); Red Cell Distribution Width 17.8 % (11.5-17.5); White Blood Count 10.5 K/mm3 (4.8-10.8)
[2021-07-29 08:46] LABS: Alanine Aminotransferase 41 U/L (12-78); Albumin/Globulin Ratio 1.7 (1.1-1.8); Alkaline Phosphatase 104 U/L (38-126); Anion Gap 9.3 mEq/L (5-15); Aspartate Amino Transferase 44 U/L (14-36); Bilirubin,Total 0.2 mg/dl (0.2-1.3); Blood Urea Nitrogen 12 mg/dl (7-17); Calcium 8.9 mg/dl (8.4-10.2); Carbon Dioxide 34 mmol/L (22.0-30.0); Chloride 98 mmol/L (98-107); Estimated Glomerular Filt Rate 104 ml/min (>60); GFR (African American) 126 ML/MIN (>60); Globulin 2.4 g/dL (1.3-3.2); Glucose 127 mg/dl (74-100); Potassium 4.3 mmoL/L (3.5-5.1); Sodium 137 mmol/L (136-145); Total Protein,Serum 6.4 g/dl (6.3-8.2)
== END ==
PROVIDERS: PCP Nurse Practitioner Family; Visit Provider Podiatrist
DX: S82.832A Other fracture of upper and lower end of left fibula, initial encounter for closed fracture; M25.572 Pain in left ankle and joints of left foot; Z01.810 Encounter for preprocedural cardiovascular examination
CPT/HCPCS: 36415; 71046; 73700; 80053; 85025; 93005

== ENCOUNTER → 2021-08-02 11:53 | Outpatient (CLI) | payer MEDICARE, BC, SELFPAY | PROVIDERS: Visit Provider Podiatrist | DX: Z01.812 Encounter for preprocedural laboratory examination; Z11.52 Encounter for screening for COVID-19; M25.572 Pain in left ankle and joints of left foot; S82.832A Other fracture of upper and lower end of left fibula, initial encounter for closed fracture | CPT/HCPCS: C9803; U0003; U0005 ==

== ENCOUNTER 2021-08-04 06:01 | Day surgery (SDC) | payer MEDICARE, BC, SELFPAY ==
[2021-07-29 13:10] VITALS: BMI 27.1
[2021-08-04] VITALS (11 sets, daily range): BP systolic 128–157; BP diastolic 62–86; PULSE 79–96; RESP 12–18; TEMP 36.4–43; O2SAT 92–96
--- NOTE | 2021-08-04 08:37 | XR_ITS ---
PROCEDURE: XR ANKLE LT 2V CLINICAL INDICATION: HARDWARE REMOVAL IN OR COMPARISON: CR XR ANKLE WT BEARING LT MIN 3V from 08/20/2020 CR XR ANKLE WT BEARING LT MIN 3V from 10/19/2020 CR XR ANKLE WT BEARING LT MIN 3V from 05/31/2021 CR XR ANKLE WT BEARING LT MIN 3V from 07/26/2021 FINDINGS: Fluoroscopy time: 0.10 minutes. Status post hardware removal. The lateral fibular bone plate with multiple cortical screws and the syndesmotic fixation device have been removed. There remains good alignment in the AP plane. Other findings:None. IMPRESSION: Status post hardware removal with fluoroscopic assistance Dictated by: Frank Augustine MD 08/04/2021 08:42 Frank Augustine MD in [facility] 08/04/2021 08:42
--- NOTE | 2021-08-04 08:58 | SUR.OPER ---
0812 family updated 09 family updated
--- NOTE | 2021-08-04 09:00 | XR_ITS ---
PROCEDURE: XR ANKLE LT MIN 3V CLINICAL INDICATION: Post op ankle HWR COMPARISON: CR XR ANKLE WT BEARING LT MIN 3V from 10/19/2020 CR XR ANKLE WT BEARING LT MIN 3V from 05/31/2021 CR XR ANKLE WT BEARING LT MIN 3V from 07/26/2021 CR XR ANKLE LT 2V from 08/04/2021 FINDINGS: Status post hardware removal with removal the lateral fibular bone plate and multiple cortical screws and the metallic hardware the syndesmotic repair. Lucencies are present at the screw hose and syndesmosis repair. There is good alignment. There is a small amount of soft tissue gas. Hypertrophic changes are present at the distal aspect of the medial malleolus with well corticated calcifications. IMPRESSION: Good alignment status post hardware removal Dictated by: Frank Augustine MD 08/04/2021 19:05 Frank Augustine MD in [facility] 08/04/2021 19:05
--- NOTE | 2021-08-04 09:14 | HMH.ANESCL ---
[facility] Anesthesia Checklist - Structural Data Admitted From: Home Planned Operative Procedure/s: hardware removal l ankle Consent for Planned Operative Procedure(s) Verified: Yes - Additional verifications Anesthesia Reactions: No Hx Blood Transfusions: No Blood Transfusion Reaction: No - Airway Assessment C-Spine Mobility Assessed: Yes TMJ Mobility Assessed: Yes Dentition: Edentulous - Neurological Assessment Level of Consciousness: Awake, Alert, Appropriate - Anesthesia Plan Anesthesia Risk discussed: Yes Anesthesia Plan: Verified ASA Class: III Anesthesia Type: General w/block - Preoperative Comments Pre-Operative Comments: sciatic block exp to pt, pt agrees to proceed [facility] History I have reviewed the patient's past medical history: Yes Medical History: Reports:: Chronic Obstructive Pulmonary Disease (COPD), Diabetes Mellitus Type 2, Gastroesophageal Reflux Disease(GERD), Hypertension Denies:: Cancer, Diabetes Mellitus Type 1, Internal Pacemaker, MRSA, Seizures *Have you ever received a pneumonia vaccine?: Yes *Have you received a flu vaccine this season?: Yes Other Medical History: Reports: Anemia, Fibromyalgia, Other. Denies: Blood Transfusion Reaction Anesthesia experience/problems:: none Laterality Cases: Left: Arthroscopy Knee, Carpal Tunnel Release, Right: Arthroscopy Shoulder Other Surgeries: Yes: No Previous Surgery, Cholecystectomy, Colonoscopy, Hysterectomy-Total, Other. No: Pacemaker Amputation: No Fractures: No - *Social History Last grade of school completed: GED Smoking Status: Current every day smoker Tobacco Type: cigarettes # Packs/Day (cigarettes): 1 Alcohol Intake: never Substance Use Type: other, denies use *Occupational Status:: disabled Housing: house Household Members: significant other *Travel in the last 8 weeks: None Family Hx:: No significant family history
--- NOTE | 2021-08-04 09:16 | HMH.ANESI ---
[facility] Anesthesia Record Part I Intake, IV Amount: 1,500 Estimated blood loss (mL): 0 Urine output (mL): 0 Blood Pressure: 150/86 SaO2: 95 Pulse Rate: 96 Respiratory Rate: 12 Temperature: 98.6 F Patient is:: Awake, Stable Stable to PACU at:: 09:05
[2021-08-04 09:22] LABS: POC Glucose,Bedside 134 (70-110)
--- NOTE | 2021-08-04 09:25 | SUR.PHASEI ---
0910- Blood sugar taken by lester flores at this time is 134.
--- NOTE | 2021-08-04 09:26 | HMH.OPNOTE ---
Date of procedure: 08/04/21 Pre-op Diagnosis:: 1. Left ankle retained hardware 2. Left ankle fracture, s/p ORIF 06/10/20 3. Left ankle synovitis Post-op Diagnosis:: Same Procedure performed:: 1. Left ankle hardware removal 2. Left nerve decompression 3. Left ankle synovectomy 4. Left ankle bone biospy 5. Application of amniotic graft Surgeon:: Cindy Escamilla DPM Anesthesia: GETA, regional (Left regional nerve block) Estimated blood loss (mL): 10 Clinical Note:: Patient is 56-year-old female who initially had left ankle ORIF 06/10/2020. She had no postop symptoms around 6 months. Patient completed physical therapy for the left foot and ankle. Patient was released from post op care at [facility], 10/19/20. She then began developing some pain at the fracture site. X-rays were healing fracture. She has been using the bone stimulator for several months. Although the pain has improved, still an area of soreness. It could be a nerve impingement/neuritis, scar tissue. I explained if the CT shows the fracture has healed, we can proceed with HWR surgery. If the fracture is healed intraoperatively will remove hardware. I explained if the CT shows healed fracture but intraoperatively there is still visible fracture, I will revise the nonunion with bone graft and ORIF. All risks and benefits were discussed including but not limited to: damage to blood vessels and nerves, bleeding, infection, wound complications, delayed, mal or non-union of bone, post-traumatic arthritis, need for further surgery, implant failure, need for removal of implant, prolonged or permanent swelling of the extremity, prolonged or permanent pain or deformity, CRPS/RSD, DVT/PE, and anesthetic complications including . No guarantees were given. All questions fully answered. The patient verbalized understanding and agreed to proceed with surgery. Consent was obtained. Has DME at home. Necessary labs and pre-op testing ordered: CBC, BMP, EKG, CXR, covid. PCP-Nora Oakes. Operative findings:: Left ankle fibula healed. No signs of infection. Some fibrotic scar tissue noted to lateral incision. Nerve entrapment noted to lateral ankle. Some synovitis noted to the ankle joint. Operative note:: On this date and time patient was deemed an appropriate surgical candidate. With informed consent signed, the patient was taken to the operating theater after anesthesia gave a regional nerve block. The patient was positioned supine. LMA anesthesia was induced. Tourniquet was applied to the left thigh. 2g IV Ancef given. Left Ankle Hardware Removal: The left lower extremity was prepped and drapped in normal sterile fashion. The tourniquet was inflated @250mmHg. Attention was directed to the left distal fibula, where a dorsal linear incision was mapped out over the previous incision site. Dissection was carried thru skin and sub q tissue, with care to maintain surgical hemostasis. There was fibrotic scar tissue with nerve noted to be entrapped in tissue. Dissection carried down full thickness to bone. The hardware was visualized. The screws x 7 and locking plate x 1 were removed. Injury directed to the medial ankle where a full-thickness incision made the bone. The syndesmosis fixation was also removed. Intraoperative fluoroscopy utilized, fracture appeared to be well-healed. No signs of ankle instability. The remaining 2 lag screws were removed without complication. Curette and rongeur used to debride the screw sites. No signs of infection noted. Left Ankle Bone Biopsy: A piece of the left distal fibula was sent as a bone pathology. Bone was hard, color and texture was within normal limits. Left Ankle Synovectomy: The soft tissue appeared mostly healthy with minimal alvarez and no necrotic tissue noted. The synovitic tissue was sharply debrided. The ankle joint was visualized and synovitic fluid was removed. The wound was flushed with copious amounts of normal sterile saline. 3-0 Vicryl was used to reapproximate the de
--- NOTE | 2021-08-04 09:42 | SUR.PHASEI ---
0934- report called to lester schneider in post op at this time. 0935- pt left in stable condition in post op.
--- NOTE | 2021-08-04 19:43 | P.PN_ITS ---
[facility] Anesthesia Record Part II Discharge Time: 09:36 Destination: home PACU nurse assessment reviewed?: Yes Patient Condition:: Good Anesthesia Complications:: None none Swallowing reflex intact?: Yes Cyanosis?: No Blood Pressure: 128/81 Pulse Rate: 79 Temperature: 97.8 F Mental Status: Alert & Oriented Pain level:: 0 Nausea and/or vomitting:: None Intake, IV Amount: 0
[2022-06-16 10:54] LABS: POC Glucose,Bedside 105 (70-110)
== END 2021-08-04 10:12 | disposition home or self-care (01) ==
LOC: OR 06:03
PROVIDERS: PCP Nurse Practitioner Family; Visit Provider Podiatrist
DX: T84.84XA Pain due to internal orthopedic prosthetic devices, implants and grafts, initial encounter (principal); E11.42 Type 2 diabetes mellitus with diabetic polyneuropathy; M14.672 Charcot's joint, left ankle and foot; M25.872 Other specified joint disorders, left ankle and foot; Z79.84 Long term (current) use of oral hypoglycemic drugs; I10 Essential (primary) hypertension; Z79.899 Other long term (current) drug therapy; F17.210 Nicotine dependence, cigarettes, uncomplicated; Y83.1 Surgical operation with implant of artificial internal device as the cause of abnormal reaction of the patient, or of later complication, without mention of misadventure at the time of the procedure
CPT/HCPCS: 15275; 20245; 20680; 27625; 64704; 73600; 73610; 76000; 82962; 88307; 88311; 96374; J2405; Q4211

== ENCOUNTER → 2021-09-14 09:46 | Outpatient (CLI) | payer MEDICARE, BC, SELFPAY ==
--- NOTE | 2021-09-14 09:55 | XR_ITS ---
PROCEDURE INFORMATION: Exam: XR Left Ankle Exam date and time: 09/14/2021 9:55 AM Age: 56 years old Clinical indication: Pain; Ankle; Left; Additional info: Fracture eval TECHNIQUE: Imaging protocol: XR Left ankle. Views: 3 or more views. COMPARISON: No relevant prior studies available. FINDINGS: Bones/joints: Postsurgical changes of the distal fibula and tibia compatible with prior ORIF with hardware removed. Moderate osteophytosis and degenerative changes involve the tib-fib malleolus. Small enthesophyte of the calcaneus at the plantar fascia insertion. Soft tissues: Mild soft tissue swelling.. IMPRESSION: 1. Postsurgical changes of the distal fibula and tibia compatible with prior ORIF with hardware removed. 2. Moderate osteophytosis and degenerative changes involve the tib-fib malleolus.
== END ==
PROVIDERS: PCP Nurse Practitioner Family; Visit Provider Podiatrist
DX: M25.872 Other specified joint disorders, left ankle and foot (principal)
CPT/HCPCS: 73610

== ENCOUNTER → 2021-10-25 09:42 | Outpatient (CLI) | payer MEDICARE, BC, SELFPAY ==
--- NOTE | 2021-10-25 | MM_ITS ---
PROCEDURE INFORMATION: Exam: MG Bilateral Screening 3D Mammography Exam date and time: 10/25/2021 12:00 AM Age: 56 years old Clinical indication: Encounter for screening mammogram for malignant neoplasm of breast TECHNIQUE: Imaging protocol: Bilateral Screening tomosynthesis and 2D mammography including computer-aided detection (CAD) when performed. COMPARISON: 1. MG MM DIG SCREENING MAMM BI W/CAD 10/09/2020 9:25 AM 2. MG MM DIG MAMM DX UNILAT LT CAD 07/01/2019 2:55 PM FINDINGS: MAMMOGRAPHY: Breast composition: The breast tissue is composed of scattered areas of fibroglandular density. Mass: None. Architectural distortion: None. Calcifications: No suspicious calcifications. Asymmetric density: None. Skin thickening: None. Axillary adenopathy: None. IMPRESSION: No mammographic evidence of malignancy. Annual screening is recommended unless otherwise clinically indicated. ASSESSMENT: BI-RADS Category 1: Negative
== END ==
PROVIDERS: PCP Nurse Practitioner Family; Visit Provider Nurse Practitioner Family
DX: Z12.31 Encounter for screening mammogram for malignant neoplasm of breast (principal)
CPT/HCPCS: 77063; 77067

== ENCOUNTER → 2021-11-25 07:42 | Outpatient (CLI) | payer MEDICARE, BC, SELFPAY ==
--- NOTE | 2021-11-25 07:45 | CT_ITS ---
FINAL REPORT CLINICAL HISTORY: H/O NICOTINE DEPENDENCE smoker, 1/2 ppd x 30 years. copd FINDINGS: Low-Dose Chest CT CTDI vol (mGy): 2.90 DLP (mGy-cm): 96.38 Axial images were obtained from the lung apex to the mid abdomen by computed tomography. Low-dose protocol was utilized. FINDINGS: CHEST: There is no axillary adenopathy. There is no hilar adenopathy. There are small mediastinal lymph nodes. The heart is proper size. There is no pericardial or pleural effusion. Limited images of the upper abdomen are unremarkable. Lung window images demonstrate mild emphysema. There is mild scarring. There is a lateral right upper lobe nodule measuring 2 mm seen on image 33. There is a lateral left lung base nodule measuring 4 mm seen on image 62. There is a left lung base nodule measuring 5 mm seen on image 59. There is calcified granuloma in the left lower lobe.. IMPRESSION: Lung RADS category 2. Recommend 12 month follow-up low-dose chest CT. Reviewed, Interpreted and Dictated by Darrel Martinez III, MD Transcribed by Yocasta Olguin Authenticated by Darrel Martinez III, MD on 11/25/2021 09:16:41 AM [facility]
== END ==
PROVIDERS: PCP Nurse Practitioner Family; Visit Provider Nurse Practitioner Family
DX: Z87.891 Personal history of nicotine dependence (principal); Z12.2 Encounter for screening for malignant neoplasm of respiratory organs
CPT/HCPCS: 71271

== ENCOUNTER → 2021-12-20 14:56 | Outpatient (CLI) | payer MEDICARE, BC, SELFPAY ==
[2021-12-20 16:09] LABS: Basophils # 0.1 K/mm3 (0-0.2); Eosinophils # 0.5 K/mm3 (0.0-0.4); Eosinophils % 4.9 % (0.1-12.0); Hematocrit 34.1 % (37.0-47.0); Hemoglobin 10.6 g/dL (12.2-16.2); Lymphocytes # 2.6 K/mm3 (0.7-4.5); Lymphocytes % 24.8 % (10-50); Mean Corpuscular HGB Conc 31.2 g/dL (31.8-35.4); Mean Corpuscular Hemoglobin 20.4 pg (27.0-31.2); Mean Corpuscular Volume 65.5 fl (81-99); Mean Platelet Volume 7.8 fl (7.4-10.4); Monocytes # 0.4 K/mm3 (0.1-1.0); Monocytes % 3.7 % (1.7-9.3); Neutrophils # 6.8 K/mm3 (1.8-7.8); Neutrophils % 65.5 % (37.0-80.0); Platelet Count 392 K/mm3 (142-424); Red Blood Count 5.21 M/mm3 (4.20-5.40); Red Cell Distribution Width 19.7 % (11.5-17.5); White Blood Count 10.3 K/mm3 (4.8-10.8)
[2021-12-20 16:53] LABS: Iron 20 ug/dL (37-170)
[2021-12-20 17:02] LABS: Total Iron Binding Capacity 504 ug/dL (265-497)
[2021-12-20 17:29] LABS: Ferritin 21.2 ng/ml (11.1-264)
== END ==
PROVIDERS: Visit Provider Internal Medicine Medical Oncology
DX: D50.9 Iron deficiency anemia, unspecified (principal)
CPT/HCPCS: 36415; 82728; 83540; 83550; 85025

== ENCOUNTER 2021-12-28 09:47 | Outpatient (CLI) | payer MEDICARE, BC, SELFPAY ==
[2021-12-28 10:05] VITALS: BP 135/68; PULSE 70; RESP 18; O2SAT 98
[2021-12-28 10:48] VITALS: BP 137/73; PULSE 61; RESP 18
== END 2021-12-28 10:48 | disposition home or self-care (01) ==
LOC: INF 09:48
PROVIDERS: PCP Nurse Practitioner Family; Visit Provider Internal Medicine Medical Oncology
DX: D50.9 Iron deficiency anemia, unspecified (principal)
CPT/HCPCS: 96365; J1756

== ENCOUNTER 2022-01-04 09:46 | Outpatient (CLI) | payer MEDICARE, BC, SELFPAY ==
[2022-01-04 10:05] VITALS: BP 130/66; PULSE 68; RESP 20; TEMP 36.9; O2SAT 95
[2022-01-04 10:50] VITALS: BP 149/74; PULSE 62; RESP 20; TEMP 37.1; O2SAT 95
== END 2022-01-04 10:58 | disposition home or self-care (01) ==
LOC: INF 09:47
PROVIDERS: PCP Nurse Practitioner Family; Visit Provider Internal Medicine Medical Oncology
DX: D50.9 Iron deficiency anemia, unspecified (principal)
CPT/HCPCS: 96365; J1756

== ENCOUNTER 2022-01-11 09:58 | Outpatient (CLI) | payer MEDICARE, BC, SELFPAY ==
[2022-01-11 10:16] VITALS: BP 114/59; PULSE 69; RESP 18; TEMP 36.3; O2SAT 98
[2022-01-11 11:04] VITALS: BP 124/66; PULSE 68; RESP 16; TEMP 36.4; O2SAT 98
== END 2022-01-11 11:05 | disposition home or self-care (01) ==
LOC: INF 09:59
PROVIDERS: PCP Nurse Practitioner Family; Visit Provider Internal Medicine Medical Oncology
DX: D50.9 Iron deficiency anemia, unspecified (principal)
CPT/HCPCS: 96365; J1756

== ENCOUNTER 2022-01-18 09:46 | Outpatient (CLI) | payer MEDICARE, BC, SELFPAY ==
[2022-01-18 10:05] VITALS: BP 127/67; PULSE 68; RESP 18; O2SAT 98
[2022-01-18 10:48] VITALS: BP 139/66; PULSE 64; RESP 18
== END 2022-01-18 10:48 | disposition home or self-care (01) ==
LOC: INF 09:46
PROVIDERS: PCP Nurse Practitioner Family; Visit Provider Internal Medicine Medical Oncology
DX: D50.9 Iron deficiency anemia, unspecified (principal)
CPT/HCPCS: 96365; J1756

== ENCOUNTER 2022-01-25 09:45 | Outpatient (CLI) | payer MEDICARE, BC, SELFPAY ==
[2022-01-25 10:06] VITALS: BP 113/50; PULSE 84; RESP 18; TEMP 36.6; O2SAT 97
[2022-01-25 10:57] VITALS: BP 132/58; PULSE 75; RESP 18; TEMP 36.6; O2SAT 97
== END 2022-01-25 10:59 | disposition home or self-care (01) ==
LOC: INF 09:46
PROVIDERS: PCP Nurse Practitioner Family; Visit Provider Internal Medicine Medical Oncology
DX: D50.9 Iron deficiency anemia, unspecified (principal)
CPT/HCPCS: 96365; J1756

== ENCOUNTER → 2022-03-25 10:14 | Outpatient (CLI) | payer MEDICARE, BC, SELFPAY ==
[2022-03-25 10:49] LABS: Basophils # 0.1 K/mm3 (0-0.2); Basophils % 0.6 % (0.1-2.0); Eosinophils # 0.4 K/mm3 (0.0-0.4); Eosinophils % 3.9 % (0.1-12.0); Hematocrit 40.3 % (37.0-47.0); Hemoglobin 13.2 g/dL (12.2-16.2); Lymphocytes # 1.2 K/mm3 (0.7-4.5); Lymphocytes % 13.3 % (10-50); Mean Corpuscular HGB Conc 32.7 g/dL (31.8-35.4); Mean Corpuscular Hemoglobin 24.6 pg (27.0-31.2); Mean Corpuscular Volume 75.3 fl (81-99); Mean Platelet Volume 8.8 fl (7.4-10.4); Monocytes # 0.2 K/mm3 (0.1-1.0); Monocytes % 2.6 % (1.7-9.3); Neutrophils # 7.4 K/mm3 (1.8-7.8); Neutrophils % 79.5 % (37.0-80.0); Platelet Count 282 K/mm3 (142-424); Red Blood Count 5.35 M/mm3 (4.20-5.40); Red Cell Distribution Width 20.2 % (11.5-17.5); White Blood Count 9.3 K/mm3 (4.8-10.8)
[2022-03-25 11:13] LABS: Iron 30 ug/dL (37-170)
[2022-03-25 11:22] LABS: Total Iron Binding Capacity 364 ug/dL (265-497)
[2022-03-25 11:48] LABS: Ferritin 91.4 ng/ml (11.1-264)
== END ==
PROVIDERS: PCP Nurse Practitioner Family; Visit Provider Internal Medicine Medical Oncology
DX: D64.9 Anemia, unspecified (principal)
CPT/HCPCS: 36415; 82728; 83540; 83550; 85025

== ENCOUNTER 2022-04-05 09:50 | Outpatient (CLI) | payer MEDICARE, BC, SELFPAY ==
[2022-04-05 10:10] VITALS: BP 131/73; PULSE 73; RESP 20; O2SAT 96
[2022-04-05 11:00] VITALS: BP 145/71; PULSE 70; RESP 18
== END 2022-04-05 11:00 | disposition home or self-care (01) ==
LOC: INF 09:51
PROVIDERS: PCP Nurse Practitioner Family; Visit Provider Internal Medicine Medical Oncology
DX: D50.8 Other iron deficiency anemias (principal)
CPT/HCPCS: 96365; J1756

== ENCOUNTER 2022-04-12 09:55 | Outpatient (CLI) | payer MEDICARE, BC, SELFPAY ==
[2022-04-12 10:20] VITALS: BP 119/63; PULSE 74; RESP 18; TEMP 36.4; O2SAT 96
[2022-04-12 11:02] VITALS: BP 156/68; PULSE 76; RESP 18
== END 2022-04-12 11:02 | disposition home or self-care (01) ==
LOC: INF 09:55
PROVIDERS: PCP Nurse Practitioner Family; Visit Provider Internal Medicine Medical Oncology
DX: D50.8 Other iron deficiency anemias (principal)
CPT/HCPCS: 96365; J1756

== ENCOUNTER 2022-04-19 09:46 | Outpatient (CLI) | payer MEDICARE, BC, SELFPAY ==
[2022-04-19 10:03] VITALS: BP 149/81; PULSE 73; RESP 16; TEMP 36.3; O2SAT 95
[2022-04-19 11:00] VITALS: BP 145/77; PULSE 71; RESP 16; TEMP 36.4; O2SAT 95
== END 2022-04-19 11:00 | disposition home or self-care (01) ==
LOC: INF 09:46
PROVIDERS: PCP Nurse Practitioner Family; Visit Provider Internal Medicine Medical Oncology
DX: D50.8 Other iron deficiency anemias (principal)
CPT/HCPCS: 96365; J1756

== ENCOUNTER 2022-04-26 09:50 | Outpatient (CLI) | payer MEDICARE, BC, SELFPAY ==
[2022-04-26 10:08] VITALS: BP 138/68; PULSE 72; RESP 16; TEMP 36.4; O2SAT 95
[2022-04-26 10:52] VITALS: BP 135/80; PULSE 76; RESP 16; TEMP 36.4; O2SAT 96
== END 2022-04-26 10:55 | disposition home or self-care (01) ==
LOC: INF 09:51
PROVIDERS: PCP Nurse Practitioner Family; Visit Provider Internal Medicine Medical Oncology
DX: D50.8 Other iron deficiency anemias (principal)
CPT/HCPCS: 96365; J1756

== ENCOUNTER 2022-05-03 09:55 | Outpatient (CLI) | payer MEDICARE, BC, SELFPAY ==
[2022-05-03 10:15] VITALS: BP 135/74; PULSE 72; RESP 20; TEMP 36.9; O2SAT 95
[2022-05-03 12:00] VITALS: BP 153/78; PULSE 68; RESP 20; TEMP 36.9; O2SAT 95
== END 2022-05-03 11:00 | disposition home or self-care (01) ==
LOC: INF 09:56
PROVIDERS: PCP Nurse Practitioner Family; Visit Provider Internal Medicine Medical Oncology
DX: D50.8 Other iron deficiency anemias (principal)
CPT/HCPCS: 96365; J1756

== ENCOUNTER → 2022-06-02 13:31 | Outpatient (CLI) | payer MEDICARE, BC, SELFPAY ==
--- NOTE | 2022-06-02 13:45 | CT_ITS ---
FINAL REPORT CLINICAL HISTORY: ABD WALL DEFECT Other congenital malformations of abdominal COMPARISON: August 14, 2018 FINDINGS: Axial CT images of the abdomen and pelvis were obtained without intravenous contrast. Coronal reformatted images were also obtained.This study was performed with techniques to keep radiation doses as low as reasonably achievable (ALARA). Individualized dose reduction techniques using automated exposure control or adjustment of mA and/or kV according to the patient's size were employed. Abdomen: The lung bases are clear. There is no evidence of renal stone or hydronephrosis. Postoperative changes are seen from cholecystectomy. The liver, spleen and pancreas have an unremarkable, unenhanced appearance. There is a 17 mm low-attenuation mass in the medial left kidney that cannot be accurately characterized without contrast but likely represents a cyst. This was seen on the prior exam. No inflammatory process is identified. There is mild vascular calcification. Pelvis: Images of the pelvis reveal no evidence of ureteral dilation or ureteral stone.No mass or abnormal fluid collection is identified. The appendix is normal. There has been hysterectomy. IMPRESSION: No renal or ureteral stone, or hydronephrosis. No mass or localized inflammatory process. Reviewed, Interpreted and Dictated by Darrel Martinez III, MD Transcribed by Vernon Parra Authenticated and [facility]
== END ==
PROVIDERS: PCP Nurse Practitioner Family; Visit Provider Nurse Practitioner Family
DX: M95.8 Other specified acquired deformities of musculoskeletal system (principal)
CPT/HCPCS: 36415; 74176

== ENCOUNTER 2022-06-25 12:21 | Emergency (ER) | payer MEDICARE, BC, SELFPAY ==
[2022-06-25 12:22] VITALS: BP 165/72; PULSE 88; RESP 16; TEMP 36.7; O2SAT 97; BMI 27.8
--- NOTE | 2022-06-25 12:41 | PC.NURSE ---
Pt provided with icepack to rt foot/ankle.
--- NOTE | 2022-06-25 12:46 | XR_ITS ---
PROCEDURE INFORMATION: Exam: XR Right Foot Exam date and time: 06/25/2022 12:48 PM Age: 57 years old Clinical indication: Injury or trauma; Fall; Blunt trauma; Foot; Right; Additional info: Fell last night TECHNIQUE: Imaging protocol: Radiologic exam of the Right foot. Views: 3 or more views. COMPARISON: CR XR FOOT WT BEARING RT 3V 09/03/2020 10:38 AM FINDINGS: Bones/joints: There is no evidence of acute fracture.There is no evidence of malalignment or dislocation. Soft tissues: Normal. IMPRESSION: There is no evidence of acute fracture.There is no evidence of malalignment or dislocation.
--- NOTE | 2022-06-25 12:46 | XR_ITS ---
PROCEDURE INFORMATION: Exam: XR Right Ankle Exam date and time: 06/25/2022 12:50 PM Age: 57 years old Clinical indication: Injury or trauma; Fall; Blunt trauma; Ankle; Right; Additional info: Fell last night TECHNIQUE: Imaging protocol: Radiologic exam of the Right ankle. Views: 3 or more views. COMPARISON: LEAJW/ORT MRI-LOW EXT ANY JOINT W/O-RT 07/23/2015 2:30 PM FINDINGS: Bones/joints: Degenerative changes in the medial and lateral malleolus. There is no evidence of acute fracture.There is no evidence of malalignment or dislocation. Old avulsion fracture adjacent to the medial malleolus Soft tissues: Normal. IMPRESSION: There is no evidence of acute fracture.There is no evidence of malalignment or dislocation.
--- NOTE | 2022-06-25 12:49 | HMH.EDGENADL ---
Discharge Plan Disposition Patient Disposition: Home, Self-Care Condition: Good Prescriptions Prescriptions: No Action lisinopril-hydrochlorothiazide 20-25 mg tablet 1 tab PO DAILY potassium chloride 20 mEq tablet,ER particles/crystals 20 meq PO QID albuterol sulfate 90 mcg/actuation HFA aerosol inhaler 2 puff IH DAILYP PRN (Reason: COPD) fluticasone propionate 50 mcg/actuation spray,suspension 1 spray NS DAILY Spiriva Respimat 1.25 mcg/actuation mist 1 puff IH BID Breo Ellipta 200-25 mcg/dose blister with device 1 puff IH DAILY metformin 1,000 mg tablet 1,000 mg PO BID omeprazole 40 mg capsule,delayed release(DR/EC) 40 mg PO DAILY citalopram 40 mg tablet 40 mg PO DAILY amitriptyline 100 mg tablet 100 mg PO DAILY cyclobenzaprine 10 mg tablet 10 mg PO HS bisoprolol fumarate 5 mg tablet 5 mg PO DAILY prednisone 20 mg tablet 20 mg PO DAILY doxycycline hyclate 100 mg capsule 100 mg PO DAILY Sucraid 8,500 unit/mL solution 1 ml PO ONCE ondansetron 4 mg tablet,disintegrating 4 mg PO Q6H Qty: 20 2RF ibuprofen 800 mg tablet 800 mg PO BID 30 Days Qty: 60 3RF hydrocodone-acetaminophen 5-325 mg tablet 1 tab PO Q6H PRN (Reason: pain) 5 Days Qty: 20 0RF ergocalciferol (vitamin D2) 1,250 MCG capsule 50,000 unit PO QWEEK cetirizine 10 MG tablet 10 mg PO DAILY Referrals Follow up/Referrals: Stephenie Oakes APRN [Primary Care Provider] - See instructions Cindy Escamilla DPM [Staff Physician] - See instructions Activity Restrictions/Add. Instructions Additional Instructions/Restrictions: Orthopedic boot until seen by Dr. Escamilla. Continue taking ibuprofen for pain. Ice 20 minutes 4 times a day and elevate foot and ankle for pain and swelling. Call Dr. Escamilla's office Monday to arrange a follow-up appointment. Clinical Impressions Clinical Impression: Foot sprain, Ankle sprain Discharge ED Provider: Bolivar Pratt Adult [facility] General Chief complaint: Extremity Injury, Lower Stated complaint: ao 06/24 fall, right ankle pain Time Seen by Provider: 06/25/22 12:39 Mode of Arrival: Ambulatory Source of Information: Patient Limitations: No Limitations Description of Symptoms (Recalled from ER Triage Doc. by RN): Pt states that she tripped off her porch last night at approx 2230 and landed on her rt ankle/foot. C/O pain and swelling today. History of Present Illness HPI narrative: Patient states that she stepped off of her porch wrong last night and came down wrong on her right foot, turning her ankle. She felt a pop. She now has bilateral ankle pain going down into her midfoot. No numbness or weakness. No knee pain. Related Data Home Medications Medication Instructions Recorded Confirmed amitriptyline 100 mg tablet 100 mg PO DAILY Depression 08/07/18 04/26/22 bisoprolol fumarate 5 mg tablet 5 mg PO DAILY BLOOD PRESSURE 08/07/18 04/26/22 citalopram 40 mg tablet 40 mg PO DAILY Depression 08/07/18 04/26/22 cyclobenzaprine 10 mg tablet 10 mg PO HS MUSCLE SPASMS 08/07/18 04/26/22 omeprazole 40 mg capsule,delayed 40 mg PO DAILY ACID REFLUX 08/07/18 04/26/22 release albuterol sulfate 90 mcg/actuation 2 puff inhalation DAILYP PRN COPD 06/23/20 04/26/22 aerosol inhaler fluticasone propionate 50 1 spray intranasal DAILY ALLERGIES 06/23/20 04/26/22 mcg/actuation nasal spray,suspension lisinopril 20 1 tab PO DAILY BP 06/23/20 04/26/22 mg-hydrochlorothiazide 25 mg tablet potassium chloride 20 mEq 20 meq PO QID Supplement 06/23/20 04/26/22 tablet,extended release(part/cryst) fluticasone furoate 200 1 puff inhalation DAILY COPD 04/29/21 04/26/22 mcg-vilanterol 25 mcg/dose inhalation powder (Breo Ellipta) metformin 1,000 mg tablet 1,000 mg PO BID Diabetes 04/29/21 04/26/22 tiotropium bromide 1.25 1 puff inhalation BID COPD 04/29/21 04/26/22 mcg/actuation mist for inhala
--- NOTE | 2022-06-25 12:55 | PC.NURSE ---
Pt to Rad
[2022-06-25 13:34] VITALS: BP 144/66; PULSE 73; RESP 16; TEMP 36.7; O2SAT 94
--- NOTE | 2022-06-25 13:39 | PC.NURSE ---
Walking boot applied per G.Tapia
[2022-06-25 13:40] VITALS: BP 144/64; PULSE 73; RESP 18; TEMP 36.8; O2SAT 99
== END 2022-06-25 13:41 | disposition home or self-care (01) ==
PROVIDERS: Emergency Provider Emergency Medicine; PCP Nurse Practitioner Family
DX: W17.89XA Other fall from one level to another, initial encounter (principal); S93.601A Unspecified sprain of right foot, initial encounter; S93.401A Sprain of unspecified ligament of right ankle, initial encounter; Z79.84 Long term (current) use of oral hypoglycemic drugs; Z79.899 Other long term (current) drug therapy; J44.9 Chronic obstructive pulmonary disease, unspecified; E11.9 Type 2 diabetes mellitus without complications; K21.9 Gastro-esophageal reflux disease without esophagitis; F32.9 Major depressive disorder, single episode, unspecified
CPT/HCPCS: 73610; 73630; 99283

== ENCOUNTER → 2022-07-05 12:09 | Outpatient (CLI) | payer MEDICARE, BC, SELFPAY ==
[2022-07-05 12:54] LABS: Basophils # 0.1 K/mm3 (0-0.2); Basophils % 1.3 % (0.1-2.0); Eosinophils # 0.3 K/mm3 (0.0-0.4); Eosinophils % 3.5 % (0.1-12.0); Hematocrit 44.6 % (37.0-47.0); Hemoglobin 14.3 g/dL (12.2-16.2); Lymphocytes # 1.9 K/mm3 (0.7-4.5); Lymphocytes % 19.9 % (10-50); Mean Corpuscular Hemoglobin 26.8 pg (27.0-31.2); Mean Corpuscular Volume 83.9 fl (81-99); Mean Platelet Volume 8.5 fl (7.4-10.4); Monocytes # 0.3 K/mm3 (0.1-1.0); Monocytes % 2.8 % (1.7-9.3); Neutrophils % 72.6 % (37.0-80.0); Platelet Count 313 K/mm3 (142-424); Red Blood Count 5.32 M/mm3 (4.20-5.40); Red Cell Distribution Width 17.4 % (11.5-17.5); White Blood Count 9.7 K/mm3 (4.8-10.8)
[2022-07-05 13:30] LABS: Iron 35 ug/dL (37-170)
[2022-07-05 13:44] LABS: Total Iron Binding Capacity 369 ug/dL (265-497)
[2022-07-05 14:04] LABS: Ferritin 211 ng/ml (11.1-264)
== END ==
PROVIDERS: PCP Nurse Practitioner Family; Visit Provider Internal Medicine Medical Oncology
DX: D50.8 Other iron deficiency anemias (principal)
CPT/HCPCS: 36415; 82728; 83540; 83550; 85025

== ENCOUNTER → 2022-07-14 09:33 | Outpatient (CLI) | payer MEDICARE, BC, SELFPAY ==
--- NOTE | 2022-07-14 09:39 | XR_ITS ---
FINAL REPORT CLINICAL HISTORY: right foot sprain COMPARISON: 06/25/2022 FINDINGS: RIGHT ANKLE Three views of the right ankle were obtained. There is no acute fracture or dislocation. The joint spaces and mortise are intact. There is a small chronic calcification inferior to the medial malleolus, stable. There is no soft tissue abnormality. IMPRESSION: No acute bony abnormality. Reviewed, Interpreted and Dictated by Darrel Martinez III, MD Transcribed by Yocasta Olguin Authenticated and [facility]
== END ==
PROVIDERS: PCP Nurse Practitioner Family; Visit Provider Nurse Practitioner Family
DX: S93.601A Unspecified sprain of right foot, initial encounter (principal); M25.571 Pain in right ankle and joints of right foot
CPT/HCPCS: 73610

== ENCOUNTER 2022-07-29 07:15 | Day surgery (SDC) | payer MEDICARE, BC, SELFPAY ==
[2022-07-27 11:22] VITALS: BMI 28.3
[2022-07-29 07:41] VITALS: BP 147/61; PULSE 71; RESP 18; TEMP 36.3; O2SAT 94
[2022-07-29 07:53] LABS: POC Glucose,Bedside 131 (70-110)
--- NOTE | 2022-07-29 08:02 | P.PN_ITS ---
PFSH PFSH Medical History Allergies Anxiety Arthritis COPD (chronic obstructive pulmonary disease) Depression Diabetes mellitus Fibromyalgia History of anemia History of back pain History of gastroesophageal reflux (GERD) Hypertension Iron deficiency Irritable bowel syndrome (IBS) Pneumonia Surgical History H/O abdominal hysterectomy History of ankle surgery History of bladder repair surgery History of carpal tunnel release History of colonoscopy History of repair of rotator cuff Hx laparoscopic cholecystectomy Family History Mother Family history of liver cancer Grandmother Family history of liver cancer Social History Smoking Status: Current every day smoker tobacco type: cigarettes packs per day : 1 years smoked: 30 second hand exposure: No alcohol intake: never substance use type: denies use current occupational status: disabled Travel in the last 8 weeks: None housing: house 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 current occupational exposures/hazards: Yes caffeine: Yes [facility] Anesthesia Checklist Patient Identification Patient Identification: Arm Band Structural Data Admitted From: Home Planned Operative Procedure/s: EGD Consent for Planned Operative Procedure(s) Verified: Yes Verified Documents: Surgical Consent and History and Physical NPO Status Verified Time NPO: 00:00 Additional verifications Anesthesia Reactions: No Hx Blood Transfusions: No Blood Transfusion Reaction: No Airway Assessment C-Spine Mobility Assessed: Yes TMJ Mobility Assessed: Yes Dentition: Edentulous Neurological Assessment Level of Consciousness: Awake and Alert Anesthesia Plan Anesthesia Risk discussed: Yes Anesthesia Plan: Verified ASA Class: III Anesthesia Type: MAC
[2022-07-29 09:17] VITALS: O2SAT 94
--- NOTE | 2022-07-29 09:37 | P.PCN_ITS ---
Procedure: Date: 07/29/22 Patient Date of :: 1965 Procedure Performed:: Esophagogastroduodenoscopy with biopsies Indications:: Patient is a 57-year-old female referred by Dr. Winter for EGD to evaluate iron deficiency anemia. Patient does state that she was longstanding history of iron deficiency anemia for my entire life . She has undergone iron infusions. I had performed EGD and colonoscopy on her years ago. She did have a colonoscopy performed by Dr. Art Pathak on 12/15/2021. He has treated her for sucrase isomaltase deficiency and her symptoms of loose stools with bowel frequency have resolved. Colonoscopy was essentially unremarkable to the terminal ileum with grade 1 internal hemorrhoids. It was recommended she would not require follow- up colonoscopy for 10 years for surveillance purposes. Patient denies any rectal bleeding. No history of melena. Performing Provider:: Darrel Booth MD Referring Provider:: Barbi Oakes Sedation:: MAC sedation Procedure:: Patient was taken to endoscopy procedure room. She was positioned in lateral decubitus position. Adequate intravenous sedation was achieved with anesthesia titration of propofol. Olympus endoscope was inserted via the oropharynx. Esophagus was cannulated. There was some mild tortuosity of the esophagus. Gastroesophageal junction was encountered at 35 cm from the incisors. Stomach was cannulated and insufflated. Retroflexion revealed a moderate sliding hiatal hernia. There is some diffuse moderate nonerosive gastritis/gastropathy. Gastric biopsy was obtained for CLOtest for H. pylori. Additional gastric biopsies were obtained for histopathologic analysis. Pylorus was traversed. Duodenum appeared unremarkable. Couple biopsies were obtained at the gastroesophageal junction. Endoscope was withdrawn. Findings:: Gastroesophageal junction at 35 cm Small to moderate sliding hiatal hernia Diffuse gastropathy/gastritis (nonerosive). Recommendations:: No source for potential etiology for iron deficiency anemia on upper endoscopy. If GI source is felt to be an etiology may need small bowel evaluation. Complications:: None immediately apparent Estimated blood obtained (mL): 2
[2022-07-29 09:41] VITALS: BP 116/56; PULSE 66; RESP 16; TEMP 36.1; O2SAT 92
[2022-07-29 09:51] VITALS: BP 114/62; PULSE 65; RESP 16; TEMP 36.1; O2SAT 92
[2022-07-29 10:01] VITALS: BP 120/65; PULSE 66; RESP 18; TEMP 36.1; O2SAT 93
[2022-07-29 10:14] VITALS: BP 120/73; PULSE 65; RESP 18; TEMP 36.1; O2SAT 93
== END 2022-07-29 10:14 | disposition home or self-care (01) ==
PROVIDERS: PCP Nurse Practitioner Family; Visit Provider Surgery
PROC: 0DJ08ZZ Inspection of Upper Intestinal Tract, Via Natural or Artificial Opening Endoscopic (ICD-10-PCS; CPT 43235; principal; 2022-07-29 08:30)
DX: D50.9 Iron deficiency anemia, unspecified (principal); K44.9 Diaphragmatic hernia without obstruction or gangrene; K29.50 Unspecified chronic gastritis without bleeding; Z72.0 Tobacco use; Z79.899 Other long term (current) drug therapy; E11.9 Type 2 diabetes mellitus without complications
CPT/HCPCS: 43239; 82962; 87339; 88305

== ENCOUNTER → 2022-08-15 09:16 | Outpatient (CLI) | payer MEDICARE, BC, SELFPAY ==
--- NOTE | 2022-08-15 09:22 | XR_ITS ---
FINAL REPORT CLINICAL HISTORY: right ankle pain COMPARISON: 07/14/2022 FINDINGS: RIGHT ANKLE 2 views of the right ankle were obtained. A small, old avulsion fracture is seen along the tip of the medial malleolus. There is no acute fracture or dislocation. The mortise is intact. Visualized joint spaces are normally aligned. Soft tissues are unremarkable. IMPRESSION: No acute bony abnormality. Reviewed, Interpreted and Dictated by Jun Rivera MD Transcribed by Sara Mitchlel Authenticated and [facility]
--- NOTE | 2022-08-15 09:22 | XR_ITS ---
FINAL REPORT CLINICAL HISTORY: hip pain FINDINGS: LEFT HIP 3 views of the left hip are obtained. There is no acute fracture or dislocation. Visualized joint spaces are normally aligned. There is no acute soft tissue abnormality. IMPRESSION: No acute bony abnormality. Reviewed, Interpreted and Dictated by Jun Rivera MD Transcribed by Sara Mitchell Authenticated and [facility]
== END ==
PROVIDERS: PCP Nurse Practitioner Family; Referring Provider Orthopaedic Surgery; Visit Provider Nurse Practitioner Family
DX: M25.571 Pain in right ankle and joints of right foot (principal); M25.552 Pain in left hip
CPT/HCPCS: 73502; 73610

== ENCOUNTER → 2022-08-25 16:41 | Outpatient (CLI) | payer MEDICARE, BC, SELFPAY ==
--- NOTE | 2022-08-25 16:41 | MR_ITS ---
PROCEDURE INFORMATION: Exam: MR Lumbar Spine Without Contrast Exam date and time: 08/25/2022 4:46 PM Age: 57 years old Clinical indication: Low back pain; Additional info: Hip pain. Left sided low back pain. Bilateral leg pain, numbness and tingling. No injury or trauma. TECHNIQUE: Imaging protocol: Magnetic resonance imaging of the lumbar spine without contrast. COMPARISON: FINDINGS: Bones/joints: There is preservation of vertebral alignment and vertebral body heights. No marrow replacing process. There is mild STIR hyperintense signal along the L5 pedicles, which can represent active degeneration. Spinal cord: Conus and cauda equina nerve roots are unremarkable L1-L2: No significant disc disease. No significant spinal canal stenosis. No neural foraminal stenosis. L2-L3: No significant disc disease. No significant spinal canal stenosis. No neural foraminal stenosis. L3-L4: Diffuse disc bulge significant spinal canal or neural foraminal narrowing. L4-L5: Diffuse disc bulge and facet arthropathy without significant spinal canal or neural foraminal narrowing. There is no significant spinal canal stenosis L5-S1: Diffuse disc bulge and facet arthropathy produce mild bilateral neural foraminal narrowing. There is no significant spinal stenosis Soft tissues: Unremarkable. Kidneys and ureters: There is a 2 cm left renal cyst IMPRESSION: 1. Mild STIR hyperintense signal in the L5 pedicles, which can represent active degeneration. 2. Mild multilevel degenerative changes significant spinal canal or neural foramina narrowing at any level.
== END ==
PROVIDERS: PCP Nurse Practitioner Family; Visit Provider Orthopaedic Surgery
DX: M54.50 Low back pain, unspecified; M25.552 Pain in left hip
CPT/HCPCS: 72148; 76376

== ENCOUNTER → 2022-09-05 07:40 | Outpatient (CLI) | payer MEDICARE, BC, SELFPAY ==
--- NOTE | 2022-09-05 07:41 | FL_ITS ---
FINAL REPORT CLINICAL HISTORY: reflux fluoro time 1.54 FINDINGS: UPPER GI WITH SBFT UPPER GI EXAM HISTORY: Anemia. PROCEDURE: The patient ingested barium. Effervescent crystals were also administered. Spot and overhead films were obtained. FINDINGS: The esophagus is normal. There is no hiatal hernia. There is gastroesophageal reflux to the level of the aortic arch. Peristalsis is normal. The rugal fold pattern of the stomach is normal. The duodenal bulb is normal. FLUOROSCOPY TIME: 1 minute 54 seconds IMPRESSION: Gastroesophageal reflux to the proximal esophagus. Otherwise, unremarkable. SBFT: The display associate film is normal. There is no evidence of obstruction. The mucosal fold pattern is normal. The terminal ilium is normal. The appendix is prominent but there is no pain with palpation. IMPRESSION: Normal SBFT. Films reviewed , interpreted and dictated by Dr. Martinez Transcribed by Evans Ennis PA-C. Reviewed, Interpreted and Dictated by Darrel Martinez III, MD Transcribed by SILVESTRE Jerry Authenticated and [facility]
== END ==
PROVIDERS: PCP Nurse Practitioner Family; Visit Provider Surgery
DX: E61.1 Iron deficiency (principal)
CPT/HCPCS: 74246; 74248

== ENCOUNTER → 2022-09-24 10:01 | Outpatient (CLI) | payer MEDICARE, BC, SELFPAY | PROVIDERS: PCP Nurse Practitioner Family; Visit Provider Internal Medicine Adolescent Medicine | DX: R30.0 Dysuria (principal); B96.89 Other specified bacterial agents as the cause of diseases classified elsewhere | CPT/HCPCS: 87086; 87088; 87186 ==

== ENCOUNTER 2022-09-28 16:00 | Outpatient (RCR) | payer MEDICARE, BC, SELFPAY | END 2022-09-28 16:05 | disposition home or self-care (01) | LOC: PT 16:00 | PROVIDERS: PCP Nurse Practitioner Family; Visit Provider Orthopaedic Surgery | DX: M43.16 Spondylolisthesis, lumbar region (principal) | CPT/HCPCS: 97010; 97014; 97110; 97163; 97535; G0283 ==

== ENCOUNTER → 2022-10-08 10:40 | Outpatient (CLI) | payer MEDICARE, BC, SELFPAY ==
[2022-10-08 11:04] LABS: Basophils # 0.1 K/mm3 (0-0.2); Eosinophils # 0.4 K/mm3 (0.0-0.4); Eosinophils % 5.6 % (0.1-12.0); Hematocrit 39.6 % (37.0-47.0); Hemoglobin 13.1 g/dL (12.2-16.2); Lymphocytes # 1.6 K/mm3 (0.7-4.5); Mean Corpuscular Hemoglobin 27.1 pg (27.0-31.2); Mean Corpuscular Volume 82.2 fl (81-99); Monocytes # 0.2 K/mm3 (0.1-1.0); Monocytes % 2.6 % (1.7-9.3); Neutrophils # 5.5 K/mm3 (1.8-7.8); Neutrophils % 70.8 % (37.0-80.0); Platelet Count 293 K/mm3 (142-424); Red Blood Count 4.81 M/mm3 (4.20-5.40); White Blood Count 7.7 K/mm3 (4.8-10.8)
[2022-10-08 12:24] LABS: Iron 41 ug/dL (37-170)
[2022-10-08 12:33] LABS: Total Iron Binding Capacity 353 ug/dL (265-497)
[2022-10-08 12:59] LABS: Ferritin 190 ng/ml (11.1-264)
== END ==
PROVIDERS: PCP Nurse Practitioner Family; Visit Provider Internal Medicine Medical Oncology
DX: D50.9 Iron deficiency anemia, unspecified (principal)
CPT/HCPCS: 36415; 82728; 83540; 83550; 85025

== ENCOUNTER → 2022-10-25 13:40 | Outpatient (CLI) | payer MEDICARE, BC, SELFPAY ==
--- NOTE | 2022-10-25 13:43 | MM_ITS ---
PROCEDURE INFORMATION: Exam: MG Bilateral Screening 3D Mammography Exam date and time: 10/25/2022 1:40 PM Age: 57 years old Clinical indication: Screening examination. Her maternal grandmother had breast cancer. TECHNIQUE: Imaging protocol: Bilateral Screening tomosynthesis and 2D mammography including computer-aided detection (CAD) when performed. COMPARISON: 1. MG MM DIG SCREENING MAMM BI W/CAD 10/25/2021 9:50 AM 2. MG MM DIG SCREENING MAMM BI W/CAD 10/09/2020 9:25 AM 3. MG MM DIG MAMM DX UNILAT LT CAD 07/01/2019 2:55 PM 4. MG MM DIG SCREENING MAMM BI W/CAD 06/17/2019 9:29 AM FINDINGS: MAMMOGRAPHY: Breast composition: There are scattered areas of fibroglandular density. Mass: None. Architectural distortion: None. Calcifications: No suspicious calcifications. Asymmetric density: None. Skin thickening: None. Axillary adenopathy: None. IMPRESSION: No mammographic evidence of malignancy. Annual screening is recommended unless otherwise clinically indicated. ASSESSMENT: BI-RADS Category 1: Negative
== END ==
PROVIDERS: PCP Nurse Practitioner Family; Visit Provider Nurse Practitioner Family
DX: Z12.31 Encounter for screening mammogram for malignant neoplasm of breast (principal)
CPT/HCPCS: 77063; 77067

== ENCOUNTER → 2023-07-12 06:55 | Outpatient (CLI) | payer MEDICARE, BC, SELFPAY ==
--- NOTE | 2023-07-12 07:09 | CT_ITS ---
FINAL REPORT TECHNIQUE: Axial CT images of the chest were obtained without contrast. Low-dose protocol was utilized. This study was performed with techniques to keep radiation doses as low as reasonably achievable (ALARA). Individualized dose reduction techniques using automated exposure control or adjustment of mA and/or kV according to the patient's size were employed. CLINICAL HISTORY: NICOTINE DEPENDENCE CURRENT SMOKER 1PPD X30 YEARS COMPARISON: 11/25/2021 FINDINGS: CT CHEST WITHOUT, LOW DOSE SCREENING CT Di Vol: 2.90 mGy DLP: 98.73 mGy*cm There are multiple borderline size mediastinal nodes. The heart size is normal. There is no pleural or pericardial effusion. The lung windows show a stable 2 mm lateral right upper lobe nodule seen on image 34. There is a calcified granuloma in the left lower lobe. There is a 4 mm nodule in the left hemidiaphragm not as well seen as on the prior exam but stable, best seen on image 60. There are other small, less than 5 mm, nodules which are stable. There is no new mass or nodule There is mild emphysema and mild scarring. Limited images of the upper abdomen demonstrate no acute findings. IMPRESSION: Stable bilateral lung nodules. LR Category 2: 12 month follow-up low-dose chest CT is recommended. Reviewed, Interpreted and Dictated by Darrel Martinez III, MD Transcribed by Sommer Arias Authenticated and [facility]
--- NOTE | 2023-07-12 07:33 | MR_ITS ---
FINAL REPORT CLINICAL HISTORY: ESSENTIAL HYPERTENSION,FAMILY HISTORY BRAIN ANEURYSM COMPARISON: None FINDINGS: Multiple projection images of the brain arterial vasculature were obtained without contrast. The raw data images were also reviewed. The distal internal carotid, distal vertebral and basilar arteries have an unremarkable appearance without evidence of significant stenosis or occlusion. The proximal anterior, middle and posterior cerebral arteries have an unremarkable appearance. There is no evidence of significant stenosis or major branch occlusion. No aneurysm or vascular malformation is identified. IMPRESSION: Unremarkable MR angiogram of the head. Reviewed, Interpreted and Dictated by Darrel Martinez III, MD Transcribed by Sommer Arias Authenticated and [facility]
== END ==
PROVIDERS: PCP Nurse Practitioner Family; Visit Provider Nurse Practitioner Family
DX: Z87.891 Personal history of nicotine dependence (principal); Z82.49 Family history of ischemic heart disease and other diseases of the circulatory system; I10 Essential (primary) hypertension
CPT/HCPCS: 70544; 71271

== ENCOUNTER 2023-08-02 10:42 | Outpatient (RCR) | payer MEDICARE, BC, SELFPAY | END 2023-08-02 12:00 | disposition home or self-care (01) | LOC: PT 10:42 | PROVIDERS: PCP Nurse Practitioner Family; Visit Provider Orthopaedic Surgery | DX: M47.22 Other spondylosis with radiculopathy, cervical region (principal) | CPT/HCPCS: 97010; 97014; 97035; 97163; G0283 ==

== ENCOUNTER 2023-09-22 15:32 | Outpatient (CLI) | payer MEDICARE, BC, SELFPAY ==
--- NOTE | 2023-09-22 | XR_ITS ---
FINAL REPORT CLINICAL HISTORY: lost voice, congestion, no cough COMPARISON: 07/29/2021 FINDINGS: Two views of the chest were obtained. The heart size and pulmonary vascularity are within normal limits. The mediastinum is normal. No acute pulmonary abnormality is identified. There is no pneumothorax. The bony thorax is intact. IMPRESSION: No active cardiopulmonary disease. Reviewed, Interpreted and Dictated by Darrel Martinez III, MD Transcribed by Sommer Arias Authenticated and [facility]
== END 2023-09-22 23:59 ==
LOC: RAD 15:34
PROVIDERS: PCP Nurse Practitioner Family; Visit Provider Physician Assistant
DX: R49.0 Dysphonia (principal); R09.89 Other specified symptoms and signs involving the circulatory and respiratory systems
CPT/HCPCS: 71046

== ENCOUNTER 2023-10-17 11:49 | Outpatient (CLI) | payer MEDICARE, BC, SELFPAY | END 2023-10-17 23:59 | LOC: LAB.DROPOF 11:50 | PROVIDERS: PCP Nurse Practitioner Family; Visit Provider Nurse Practitioner Family | DX: R05.3 Chronic cough (principal); J44.9 Chronic obstructive pulmonary disease, unspecified; B96.89 Other specified bacterial agents as the cause of diseases classified elsewhere | CPT/HCPCS: 87070; 87205 ==

== ENCOUNTER 2023-11-01 10:33 | Outpatient (CLI) | payer MEDICARE, BC, SELFPAY ==
--- NOTE | 2023-11-01 10:39 | MM_ITS ---
PROCEDURE INFORMATION: Exam: MG Bilateral Screening 3D Mammography Exam date and time: 11/01/2023 10:26 AM Age: 58 years old Clinical indication: Screening examination TECHNIQUE: Imaging protocol: Bilateral Screening tomosynthesis and 2D mammography including computer-aided detection (CAD) when performed. COMPARISON: 1. MG MM DIG SCREENING MAMM BI W/CAD 10/25/2022 1:40 PM 2. MG MM DIG SCREENING MAMM BI W/CAD 10/25/2021 9:50 AM FINDINGS: MAMMOGRAPHY: Breast composition: There are scattered areas of fibroglandular density. Mass: None. Architectural distortion: None. Calcifications: No suspicious calcifications. Asymmetric density: None. Skin thickening: None. Axillary adenopathy: None. IMPRESSION: No mammographic evidence of malignancy. Annual screening is recommended unless otherwise clinically indicated. ASSESSMENT: BI-RADS Category 1: Negative
== END 2023-11-01 23:59 ==
LOC: RAD 10:33
PROVIDERS: PCP Nurse Practitioner Family; Visit Provider Nurse Practitioner Family
DX: Z12.31 Encounter for screening mammogram for malignant neoplasm of breast (principal)
CPT/HCPCS: 77063; 77067

== ENCOUNTER 2023-12-15 10:30 | Outpatient (CLI) | payer MEDICARE, BC, SELFPAY ==
--- NOTE | 2023-12-15 10:37 | CT_ITS ---
FINAL REPORT TECHNIQUE: Multiple axial CT sections were performed through the face without IV contrast. Coronal reconstruction images were performed. This study was performed with techniques to keep radiation doses as low as reasonably achievable (ALARA). Individualized dose reduction techniques using automated exposure control or adjustment of mA and/or kV according to the patient's size were employed. CLINICAL HISTORY: SINUSITIS COMPARISON: None FINDINGS: There is near complete opacification of the bilateral maxillary sinuses compatible with sinusitis. The remaining paranasal sinuses are clear. The ostiomeatal complexes are patent. The nasal septum is minimally deviated. The nasal airway passages are widely patent. IMPRESSION: Advance bilateral maxillary sinusitis. Reviewed, Interpreted and Dictated by Jun Rivera MD Transcribed by SILVESTRE Jose Authenticated and . [facility]
== END 2023-12-15 23:59 ==
LOC: RAD 10:31
PROVIDERS: PCP Nurse Practitioner Family; Visit Provider Allergy & Immunology
DX: J32.9 Chronic sinusitis, unspecified (principal); F17.210 Nicotine dependence, cigarettes, uncomplicated
CPT/HCPCS: 70486

== ENCOUNTER 2024-01-24 10:03 | Outpatient (CLI) | payer MEDICARE, BC, SELFPAY ==
--- NOTE | 2024-01-24 10:19 | ECG_ITS ---
APPROVED REPORT Exam: Resting ECG HR:75 bpm ECG Measurements Heart Rate 75 AXES CA 146 P 71 QRSd 98 QRS 80 QT 380 T 65 QTc 410 Conclusion SINUS RHYTHM NORMAL ECG UNCONFIRMED REPORT Electronically signed by : Otis Bray MD 01/25/2024 07:35:44
[2024-01-24 10:51] LABS: Basophils # 0.1 K/mm3 (0-0.2); Basophils % 0.8 % (0.1-2.0); Eosinophils # 0.3 K/mm3 (0.0-0.4); Eosinophils % 3.9 % (0.1-12.0); Hemoglobin 11.2 g/dL (12.2-16.2); Lymphocytes # 1.5 K/mm3 (0.7-4.5); Lymphocytes % 17.9 % (10-50); Mean Corpuscular HGB Conc 31.9 g/dL (31.8-35.4); Mean Corpuscular Hemoglobin 23.2 pg (27.0-31.2); Mean Corpuscular Volume 72.7 fl (81-99); Mean Platelet Volume 8.2 fl (7.4-10.4); Monocytes # 0.3 K/mm3 (0.1-1.0); Monocytes % 2.9 % (1.7-9.3); Neutrophils # 6.3 K/mm3 (1.8-7.8); Neutrophils % 74.5 % (37.0-80.0); Platelet Count 369 K/mm3 (142-424); Red Blood Count 4.81 M/mm3 (4.20-5.40); Red Cell Distribution Width 17.6 % (11.5-17.5); White Blood Count 8.4 K/mm3 (4.8-10.8)
[2024-01-24 11:29] LABS: Chloride 98 mmol/L (98-107); Potassium 4.3 mmoL/L (3.5-5.1); Sodium 136 mmol/L (136-145)
[2024-01-24 11:32] LABS: Anion Gap 12.3 mEq/L (5-15); Blood Urea Nitrogen 9 mg/dl (7-17); Calcium 8.9 mg/dl (8.4-10.2); Carbon Dioxide 30 mmol/L (22.0-30.0); Estimated Glomerular Filt Rate 103 ml/min (>60); GFR (African American) 125 ML/MIN (>60); Glucose 122 mg/dl (74-100)
== END 2024-01-24 23:59 | disposition home or self-care (01) ==
LOC: LAB 10:03
PROVIDERS: PCP Nurse Practitioner Family; Visit Provider Student in an Organized Health Care Education/Training Program
DX: J38.1 Polyp of vocal cord and larynx (principal); J34.2 Deviated nasal septum; R49.0 Dysphonia
CPT/HCPCS: 36415; 80048; 85025; 93005

== ENCOUNTER 2024-01-31 06:27 | Day surgery (SDC) | payer MEDICARE, BC, SELFPAY ==
[2024-01-26 13:47] VITALS: BMI 27.9
[2024-01-31] VITALS (16 sets, daily range): BP systolic 102–169; BP diastolic 57–96; PULSE 97–101; RESP 14–21; TEMP 36.7–43; O2SAT 90–98; BMI 27.9
[2024-01-31] MEDS: LACTATED RINGERS 1000ML 1,000 ML 100 ML IV (07:06)
--- NOTE | 2024-01-31 07:14 | EXP.ANES.CKL ---
[facility] Disclaimer: The information contained in this section may have been updated after the patient was seen, as this information can be updated by other users. Medical History Chronic cough Andi's edema of vocal folds Deviated septum Depression Anxiety Arthritis Pneumonia COPD (chronic obstructive pulmonary disease) History of back pain Fibromyalgia Irritable bowel syndrome (IBS) History of gastroesophageal reflux (GERD) Allergies Hypertension History of anemia Iron deficiency Diabetes mellitus Surgical History History of esophagogastroduodenoscopy (EGD) History of colonoscopy H/O abdominal hysterectomy History of repair of rotator cuff Hx laparoscopic cholecystectomy History of ankle surgery History of carpal tunnel release History of bladder repair surgery Family History Mother Family history of liver cancer Grandmother Family history of liver cancer Other Aneurysm Social History Smoking Status: Current every day smoker tobacco type: cigarettes packs per day: 1 years smoked: 30 second hand exposure: No alcohol intake: never substance use type: denies use current occupational status: disabled Travel in the last 8 weeks: None housing: house 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 current occupational exposures/hazards: Yes caffeine: Yes [facility] Anesthesia Checklist Patient Identification Patient Identification: Arm Band and Family Structural Data Admitted From: Home Planned Operative Procedure/s: Nasal Septoplasty Consent for Planned Operative Procedure(s) Verified: Yes Verified Documents: Surgical Consent and History and Physical NPO Status Verified Time NPO: 00:00 Additional verifications Anesthesia Reactions: No Hx Blood Transfusions: No Blood Transfusion Reaction: No Airway Assessment Mallampati Score:: Class II C-Spine Mobility Assessed: Yes TMJ Mobility Assessed: Yes Dentition: Edentulous Neurological Assessment Level of Consciousness: Awake, Alert and Appropriate Anesthesia Plan Anesthesia Risk discussed: Yes Anesthesia Plan: Verified ASA Class: III Anesthesia Type: General
[2024-01-31] MEDS: OXYMETAZOLINE NASAL SPRAY 0.05% 15ML 15 ML NS ×2 (09:36→09:56)
[2024-01-31] MEDS: LIDOCAINE 1% W/EPI 1:100,000 20ML VIAL 20 ML (09:36)
[2024-01-31] MEDS: CEFAZOLIN SODIUM 1 GM in 0.9 % SODIUM CHLORIDE 50 ML IV (09:37)
--- NOTE | 2024-01-31 10:10 | P.OP_ITS ---
Date of procedure: 01/31/24 Pre-op Diagnosis:: deviated septum, chronic sinusitis, inferior turbinate hypertrophy Post-op Diagnosis:: same Procedure performed:: septoplasty, bilateral inferior turbinate reduction, maxillary antrostomy with t issue removal, anterior ethmoidectomy Surgeon:: Tay Plascencia MD TIMBER MANAGEMENT TECHNICIAN:: Yimi Cadet Anesthesia: GETA Estimated blood loss (mL): 25 Operative findings:: deviated septum, ITH, fungal debris in right maxillary sinus, inflamed mucosa in left Operative note:: The patient was brought to the OR in supine position. General anesthesia was induced. Patient was prepped and draped in usual fashion. Lidocaine with epinephrine 1:100,000 was injected into the patient's septum and heads of the inferior turbinate. I first started with the septoplasty portion of the procedure. She had an anterior left deviation, and a more posterior right francisca spur. Hemitransfixion incision was made on the left side of the septum.? The mucosal flap was elevated off the cartilage and bone. The bony cartilaginous junction was disarticulated inferiorly. A postage stamp sized portion of cartilage was then removed from the posterior and inferior aspect of the cartilaginous septum, taking care to leave over a [id number]-half of cartilage both at the dorsal and caudal portions of the septum to support the nose. Fomon scissors were then used to make a releasing incision through the superior aspect of the bony septum and the deviated bony portions of the septum were then removed. I then turned my attention towards the turbinates. Stab incision was made at the head of each inferior turbinate. The mucosa was dissected off the underlying bone. The turbinate shaver was then used to perform a submucosal resection. Turbinates were then outfractured. We then began the sinus portion of the procedure. Her middle turbinates were medialized. For starting on the left the maxillary sinus os was identified with a ball-tipped probe. The uncinate was reflected forward and then taken down with the backbiter and debrider. The anterior ethmoid bulla was then also taken down with the debrider to complete the maxillary antrostomy and anterior ethmoidectomy. Patient had mucoid drainage coming from the maxillary sinus with severely inflamed mucosa within the sinus. I then went to the right side. Again the max or sinus os was identified with a ball-tipped probe and the uncinate was reflected forward. He was taken down with the backbiter microdebrider to perform the max antrostomy. Her anterior ethmoid bulla was then additionally taken down with the debrider to complete the anterior ethmoidectomy. Patient had a significant amount of fungal appearing debris within her right maxillary sinus as well as severely inflamed mucosa with in the maxillary sinus. Both of her anterior ethmoid cells beyond the ethmoid bulla had normal-appearing mucosa with fairly minimal inflammation. Afrin-soaked nova pack was placed into the middle meatuses bilaterally. The patient's septum was then closed. A 4-0 quilting stitch was used to reapproximate the mucosal flaps. Chromic was then used to close the hemitransfixion incision. Aragon splints were then fashioned across the patient's septum and secured into place. The nose and mouth were suctioned out. They were then turned back over to anesthesia to be awoken and extubated. Condition: stable Disposition: PACU Complications:: none
--- NOTE | 2024-01-31 10:18 | EXP.ANES.I ---
[facility] Anesthesia Record Part I Anesthesia Record I Intake, IV Amount: 1,000 Hydration: Adequate Estimated blood loss (mL): 25 Urine output (mL): 0 Blood Pressure: 166/72 SaO2: 96 Pulse Rate: 100 Airway Patency: Patent Respiratory Rate: 14 Temperature: 98.8 F Patient is:: Awake Stable to PACU at:: 10:13
[2024-01-31 10:50] LABS: POC Glucose,Bedside 149 (70-110)
[2024-01-31] MEDS: IPRATROPIUM/ALBUTEROL 3 ML NEB IH (10:56)
--- NOTE | 2024-01-31 10:56 | SUR.PHASEI ---
1023: Patient blood glucose at 149. Anesthesia informed, no action required at this time. 1050: Anesthesia informed patient 02 decreasing to 88-90 when taken off of 02. Anesthesia ordered breathing treatment at this time. 1053: Respiratory administered breathing treatment.
--- NOTE | 2024-01-31 11:35 | SUR.PHASEI ---
1118: Patient 02 saturation remaining between 94%-96% on room from [id number]. Patient sent to Post-op at this time.
--- NOTE | 2024-01-31 13:32 | P.PNANES_ITS ---
[facility] Anesthesia Record Part II Anesthesia Record Part II Discharge Time: 11:18 Destination: Surgical Day Care (OP Surgery) PACU nurse assessment reviewed?: Yes Patient Condition:: Good Anesthesia Complications:: None Swallowing reflex intact?: Yes Airway Patency: Patent Cyanosis?: No Blood Pressure: 150/73 SaO2: 94 Respiratory Rate: 21 Pulse Rate: 101 Temperature: 98.8 F Mental Status: Alert & Oriented Pain level:: 0 Nausea and/or vomitting:: None Intake, IV Amount: 0 Hydration: Adequate
[2024-01-31 14:23] LABS: POC Glucose,Bedside 135 (70-110)
== END 2024-01-31 11:58 | disposition home or self-care (01) ==
PROVIDERS: PCP Nurse Practitioner Family; Visit Provider Student in an Organized Health Care Education/Training Program
PROC: (CPT 30520; principal; 2024-01-31 08:00)
DX: J34.2 Deviated nasal septum (principal); J32.9 Chronic sinusitis, unspecified; E11.9 Type 2 diabetes mellitus without complications; J34.3 Hypertrophy of nasal turbinates
CPT/HCPCS: 30140; 30520; 31254; 31267; 82962; 88305; 96374; J3490; J2405

== ENCOUNTER 2024-03-20 12:40 | Outpatient (CLI) | payer MEDICARE, BC, SELFPAY ==
[2024-03-20 13:08] LABS: Basophils # 0.1 K/mm3 (0-0.2); Basophils % 0.6 % (0.1-2.0); Eosinophils # 0.4 K/mm3 (0.0-0.4); Eosinophils % 4.2 % (0.1-12.0); Hematocrit 33.4 % (37.0-47.0); Hemoglobin 10.7 g/dL (12.2-16.2); Lymphocytes # 2.3 K/mm3 (0.7-4.5); Lymphocytes % 25.3 % (10-50); Mean Corpuscular HGB Conc 32.1 g/dL (31.8-35.4); Mean Corpuscular Volume 68.6 fl (81-99); Mean Platelet Volume 8.6 fl (7.4-10.4); Monocytes # 0.3 K/mm3 (0.1-1.0); Monocytes % 3.1 % (1.7-9.3); Neutrophils # 6.1 K/mm3 (1.8-7.8); Neutrophils % 66.9 % (37.0-80.0); Platelet Count 414 K/mm3 (142-424); Red Blood Count 4.86 M/mm3 (4.20-5.40); Red Cell Distribution Width 18.9 % (11.5-17.5); White Blood Count 9.1 K/mm3 (4.8-10.8)
[2024-03-20 13:26] LABS: Chloride 101 mmol/L (98-107); Potassium 4.7 mmoL/L (3.5-5.1); Sodium 136 mmol/L (136-145)
[2024-03-20 13:28] LABS: Blood Urea Nitrogen 13 mg/dl (7-17); Estimated Glomerular Filt Rate 74 ml/min (>60); GFR (African American) 89 ML/MIN (>60)
[2024-03-20 13:29] LABS: Alanine Aminotransferase 34 U/L (12-78); Albumin Level 4.2 g/dl (3.5-5.0); Albumin/Globulin Ratio 1.8 (1.1-1.8); Alkaline Phosphatase 115 U/L (38-126); Anion Gap 9.7 mEq/L (5-15); Aspartate Amino Transferase 34 U/L (14-36); Bilirubin,Total 0.2 mg/dl (0.2-1.3); Calcium 9.5 mg/dl (8.4-10.2); Carbon Dioxide 30 mmol/L (22.0-30.0); Globulin 2.4 g/dL (1.3-3.2); Glucose 84 mg/dl (74-100); Iron 29 ug/dL (37-170); Total Protein,Serum 6.6 g/dl (6.3-8.2)
[2024-03-20 13:38] LABS: Total Iron Binding Capacity 430 ug/dL (265-497)
[2024-03-20 14:00] LABS: Thyroid Stimulating Hormone 2.34 uIU/mL (0.465-4.68)
[2024-03-20 14:04] LABS: Ferritin 14.9 ng/ml (11.1-264)
[2024-03-20 14:49] LABS: Vitamin B12 426 pg/mL (239-931)
== END 2024-03-20 23:59 | disposition home or self-care (01) ==
LOC: LAB 12:41
PROVIDERS: PCP Nurse Practitioner Family; Visit Provider Nurse Practitioner Family
DX: D64.9 Anemia, unspecified (principal); R53.81 Other malaise
CPT/HCPCS: 36415; 80050; 80053; 82607; 82728; 82746; 83540; 83550; 84443; 85025

== ENCOUNTER 2024-04-08 10:20 | Outpatient (CLI) | payer MEDICARE, BC, SELFPAY ==
[2024-04-08 10:40] VITALS: BP 138/68; PULSE 71; RESP 18; TEMP 36.7
[2024-04-08] MEDS: SODIUM CHLORIDE 0.9% 10ML FLUSH SYRINGE 10 ML IV (10:40)
[2024-04-08] MEDS: IRON SUCROSE COMPLEX 200 MG in 0.9 % SODIUM CHLORIDE 100 ML 220 MG IV (10:40)
[2024-04-08 11:15] VITALS: BP 126/65; PULSE 70
[2024-04-08] MEDS: SODIUM CHLORIDE 0.9% 50ML BAG 50 ML IV (11:15)
== END 2024-04-08 11:20 | disposition home or self-care (01) ==
LOC: INF 10:21
PROVIDERS: PCP Nurse Practitioner Family; Visit Provider Internal Medicine Medical Oncology
DX: D50.0 Iron deficiency anemia secondary to blood loss (chronic) (principal); Z79.899 Other long term (current) drug therapy
CPT/HCPCS: 96365; J1756

== ENCOUNTER 2024-04-15 10:13 | Outpatient (CLI) | payer MEDICARE, BC, SELFPAY ==
[2024-04-15 10:26] VITALS: BP 127/70; PULSE 80; RESP 18; O2SAT 99
[2024-04-15] MEDS: SODIUM CHLORIDE 0.9% 50ML BAG 50 ML IV (10:27)
[2024-04-15] MEDS: IRON SUCROSE COMPLEX 200 MG in 0.9 % SODIUM CHLORIDE 100 ML 220 MG IV (10:27)
[2024-04-15 11:06] VITALS: BP 152/72; PULSE 75; RESP 18; O2SAT 97
== END 2024-04-15 11:06 | disposition home or self-care (01) ==
LOC: INF 10:13
PROVIDERS: PCP Nurse Practitioner Family; Visit Provider Internal Medicine Medical Oncology
DX: D50.9 Iron deficiency anemia, unspecified (principal)
CPT/HCPCS: 96365; J1756

== ENCOUNTER 2024-04-22 10:15 | Outpatient (CLI) | payer MEDICARE, BC, SELFPAY ==
[2024-04-22 10:30] VITALS: BP 139/56; PULSE 83; RESP 16; TEMP 36.6; O2SAT 97
[2024-04-22] MEDS: SODIUM CHLORIDE 0.9% 50ML BAG 50 ML IV (10:30)
[2024-04-22] MEDS: IRON SUCROSE COMPLEX 200 MG in 0.9 % SODIUM CHLORIDE 100 ML 220 MG IV (10:30)
[2024-04-22] MEDS: SODIUM CHLORIDE 0.9% 10ML FLUSH SYRINGE 10 ML IV (10:30)
[2024-04-22 11:05] VITALS: BP 134/68; PULSE 81; RESP 16; TEMP 36.6; O2SAT 96
== END 2024-04-22 11:12 | disposition home or self-care (01) ==
LOC: INF 10:16
PROVIDERS: PCP Nurse Practitioner Family; Visit Provider Internal Medicine Medical Oncology
DX: D50.9 Iron deficiency anemia, unspecified (principal)
CPT/HCPCS: 96365; J1756

== ENCOUNTER 2024-04-29 10:10 | Outpatient (CLI) | payer MEDICARE, BC, SELFPAY ==
[2024-04-29 10:34] VITALS: BP 122/68; PULSE 78; RESP 18; TEMP 36.6; O2SAT 98
[2024-04-29] MEDS: SODIUM CHLORIDE 0.9% 50ML BAG 50 ML IV (10:34)
[2024-04-29] MEDS: SODIUM CHLORIDE 0.9% 10ML FLUSH SYRINGE 10 ML IV (10:34)
[2024-04-29] MEDS: IRON SUCROSE COMPLEX 200 MG in 0.9 % SODIUM CHLORIDE 100 ML 220 MG IV (10:34)
[2024-04-29 11:10] VITALS: BP 132/69; PULSE 72; RESP 16; TEMP 36.6; O2SAT 99
== END 2024-04-29 11:12 | disposition home or self-care (01) ==
LOC: INF 10:11
PROVIDERS: PCP Nurse Practitioner Family; Visit Provider Internal Medicine Medical Oncology
DX: D50.9 Iron deficiency anemia, unspecified (principal)
CPT/HCPCS: 96365; J1756

== ENCOUNTER 2024-05-06 10:23 | Outpatient (CLI) | payer MEDICARE, BC, SELFPAY ==
[2024-05-06 10:35] VITALS: BP 144/65; PULSE 75; RESP 16; TEMP 36.6; O2SAT 97
[2024-05-06] MEDS: IRON SUCROSE COMPLEX 200 MG in 0.9 % SODIUM CHLORIDE 100 ML 220 MG IV (10:35)
[2024-05-06] MEDS: 0.9 % SODIUM CHLORIDE 50 ML 100 ML IV (10:35)
[2024-05-06 11:10] VITALS: BP 152/69; PULSE 78; RESP 16; TEMP 36.6; O2SAT 97
== END 2024-05-06 11:10 | disposition home or self-care (01) ==
LOC: INF 10:24
PROVIDERS: PCP Nurse Practitioner Family; Visit Provider Internal Medicine Medical Oncology
DX: D50.9 Iron deficiency anemia, unspecified (principal)
CPT/HCPCS: 96365; J1756

== ENCOUNTER 2024-06-10 10:19 | Outpatient (CLI) | payer MEDICARE, BC, SELFPAY ==
[2024-06-10 10:46] LABS: Basophils # 0.1 K/mm3 (0-0.2); Basophils % 0.9 % (0.1-2.0); Eosinophils # 0.4 K/mm3 (0.0-0.4); Eosinophils % 5.7 % (0.1-12.0); Hematocrit 40.6 % (37.0-47.0); Hemoglobin 12.5 g/dL (12.2-16.2); Lymphocytes # 1.3 K/mm3 (0.7-4.5); Lymphocytes % 17.3 % (10-50); Mean Corpuscular HGB Conc 30.9 g/dL (31.8-35.4); Mean Corpuscular Hemoglobin 23.7 pg (27.0-31.2); Mean Corpuscular Volume 76.8 fl (81-99); Mean Platelet Volume 8.6 fl (7.4-10.4); Monocytes # 0.3 K/mm3 (0.1-1.0); Monocytes % 3.2 % (1.7-9.3); Neutrophils # 5.6 K/mm3 (1.8-7.8); Neutrophils % 72.9 % (37.0-80.0); Platelet Count 333 K/mm3 (142-424); Red Blood Count 5.28 M/mm3 (4.20-5.40); Red Cell Distribution Width 20.9 % (11.5-17.5); White Blood Count 7.6 K/mm3 (4.8-10.8)
[2024-06-10 12:35] LABS: Total Iron Binding Capacity 361 ug/dL (265-497)
[2024-06-10 13:13] LABS: Iron 41 ug/dL (37-170)
== END 2024-06-10 23:59 | disposition home or self-care (01) ==
LOC: LAB 10:20
PROVIDERS: PCP Nurse Practitioner Family; Visit Provider Internal Medicine Medical Oncology
DX: D50.0 Iron deficiency anemia secondary to blood loss (chronic) (principal)
CPT/HCPCS: 36415; 82728; 83540; 83550; 85025

== ENCOUNTER 2024-07-03 14:45 | Outpatient (CLI) | payer MEDICARE, BC, SELFPAY | END 2024-07-03 23:59 | disposition home or self-care (01) | LOC: LAB.DROPOF 07-04 10:11 | PROVIDERS: PCP Student in an Organized Health Care Education/Training Program; Visit Provider Student in an Organized Health Care Education/Training Program | DX: J34.89 Other specified disorders of nose and nasal sinuses (principal) | CPT/HCPCS: 87070; 87077; 87186 ==

== ENCOUNTER 2024-07-30 13:59 | Outpatient (CLI) | payer MEDICARE, BC, SELFPAY ==
--- NOTE | 2024-07-30 13:59 | CT_ITS ---
FINAL REPORT TECHNIQUE: Thin section axial images were obtained from the lung apices to the upper abdomen by computed tomography. Reformatted images were obtained and reviewed. This study was performed with techniques to keep radiation doses al low as reasonably achievable (ALARA). Individualized dose reduction techniques using automated exposure control or adjustment of mA and/or kV according to the patient's size were employed. CLINICAL HISTORY: lung cancer screening 1/2 - 1 ppd x 30 yrs [id number] COMPARISON: 07/12/2023 FINDINGS: CHEST CT LOW DOSE CTDI vol (mGy): 2.90 DLP (mGy-cm): 96.38 There is no axillary adenopathy. There are borderline sized mediastinal nodes. The heart is normal in size. There is no pericardial or pleural effusion. There is mild emphysema and mild pulmonary scarring. Lung window images demonstrate a stable 2 mm lateral right upper lobe nodule on series 3 image 37. The previously identified nodule along the left hemidiaphragm is not well-seen. There are several other less than 5 mm nodules which are also stable. A calcified granuloma is noted in the left lower lobe. No new mass or pulmonary nodule identified. Limited images of the upper abdomen are unremarkable. IMPRESSION: Stable pulmonary nodules. Lung-RADS category 2. Recommend 12 month follow up low dose chest CT. Reviewed, Interpreted and Dictated by Darrel Martinez III, MD Transcribed by Sommer Arias Authenticated and [facility]
[2024-07-30 15:50] VITALS: PULSE 85; PULSE 88
[2024-07-30] MEDS: ALBUTEROL 0.083% 2.5 MG/3 ML NEB IH (15:50)
== END 2024-07-30 23:59 | disposition home or self-care (01) ==
LOC: RAD 13:59
PROVIDERS: PCP Nurse Practitioner Family; Visit Provider Internal Medicine Pulmonary Disease
DX: R06.09 Other forms of dyspnea (principal); F17.210 Nicotine dependence, cigarettes, uncomplicated
CPT/HCPCS: 71271; 94060; 94618; 94640; 94726; 94729; J7613

== ENCOUNTER 2024-08-27 10:53 | Outpatient (CLI) | payer MEDICARE, BC, SELFPAY ==
--- NOTE | 2024-08-27 | CA_ITS ---
APPROVED REPORT Exam: Pharmacologic Technologist: Janet Main Ht: 5 ft 4 in Wt: 157 lbs BSA: 1.76 m2 HR: 74 bpm BP: 146/64 mmHg Rhythm: SR Medical History Medical History: HTN, Hyperlipidemia, Diabetes, Smoking Medications: Albuterol, Amitriptyline, Amlodipine, Citalopram, Vit D2, Trelegy, Omeprazole, Levocetirizine, Metformin, Lisinopril HCTZ, Potassium Allergies: No known drug allergies Cardiac Risk Factors: HTN, Hyperlipidemia, Diabetes , FHX of CAD, Smoking Stress Test Details Test: Lexiscan HR Resting HR: 74 bpm Max Heart Rate (APMHR): 162.188773 bpm Target HR (85% APMHR): 137.037105 bpm Recovery HR: 87 bpm BP Resting BP: 146.0/64.0 mmHg Max BP: 156.0/54.0 mmHg Recovery BP: 132.0/60.0 mmHg ECG Resting ECG: SR Stress ECG Conclusion Pt had chest heavineee and dyspnea Less than 1mm st depression Ekg portion unremarkable due to Lexiscan infusion Electronically signed by : Kavitha Dixon MD 08/27/2024 23:43:37
--- NOTE | 2024-08-27 11:07 | CA_ITS ---
APPROVED REPORT EXAM: Comprehensive 2D, Doppler, and color-flow Echocardiogram Digital Media Buyer: Barbie Louie RT(R) Ht: 5 ft 4 in Wt: 157lbs BSA: 1.76 BP: 121/68 mmHg Indications: COPD, smoker, HTN, DM, SOB, hyperlipidemia, pul edema, asthma 2D Dimensions Left Atrium 3.37 cm F: 2.7 - 3.8 LVEF (Platt's) 57.20 % F: 54 - 74 LVOT 2.14 cm (M/F) 1.5-2.5 LV Volume 88.10 mL F: 46 - 106 LV Volume Index 49.8 mL/m2 F: 29 - 61 LA Volume 21.70 mL LA Volume Index 12.26 mL/m2 (M/F) 16-34 EF AP4 62.90 % EF AP2 49.4 % EF BP 57.2 % GL Strain -16.4 % M-Mode Dimensions RVDd 2.83 cm (0.9-2.6) LVDd 4.83 cm (3.5-5.7) Ao Diam 2.73 cm (2.0-3.7) LVDs 3.76 cm (3.5-5.7) IVSd 0.79 cm (0.6-1.1) PWd 0.82 cm (0.6-1.1) EF (Teich) 44.60% FS 22.20% EDV (Teich) 109.10 mL ESV (Teich) 60.40 mL LV Diastology E Decel Time 168 (160-240 msec) E/A Ratio 1.0 MED E' 5.8 (>= 7 cm/sec) E'/MED E' Ratio 17.34 (<= 14) LAT E' 6.9 (>= 10 cm/sec) E/LAT E' Ratio 14.58 (<= 14) Mitral Valve MV E Max Gutierrez. 101.0 (40-130 cm/s) MV A Velocity 98.0 (40-130 cm/s) E/A Ratio 1.02 MV Decel. Time 168 (160-240 ms) Tricuspid Valve TR P. Velocity 268.00 cm/s RAP Estimate 10.00 mmHg RVSP 38.80 mmHg Left Ventricle The left ventricle is normal size. The left ventricular systolic function is normal. The left ventricular ejection fraction is within the normal range. There is increased LV wall thickness. There is normal LV segmental wall motion. Diastolic function is indeterminate. LVEF is 55%. Right Ventricle The right ventricle is normal size. The right ventricular systolic function is normal. Atria The left atrium size is normal. The right atrium size is normal. There is no Doppler evidence of interatrial shunt. Aortic Valve The aortic valve is mildly thickened. There is no aortic valvular stenosis. Trace aortic regurgitation. Mitral Valve The mitral valve is mildly thickened. No evidence of mitral valve stenosis. Trace mitral regurgitation. Tricuspid Valve Tricuspid valve is grossly normal in structure and function. Mild tricuspid regurgitation. RVSP is 25-30 mmHg. Pulmonic Valve The pulmonary valve is normal in structure. Trace pulmonic regurgitation. Great Vessels The aortic root is normal in size. The ascending aorta is not well-visualized. IVC is normal in size and collapses >50% with inspiration. Pericardium There is no pericardial effusion. Other Information Study Quality: Technically Difficult Conclusion Technically difficult study due to poor acoustic windows. Normal biventricular systolic function. Mild TR. RVSP is 25-30 mmHg. Electronically signed by : Kavitha Dixon MD 09/01/2024 21:12:44
--- NOTE | 2024-08-27 11:07 | NM_ITS ---
APPROVED REPORT Exam: Nuclear Stress Test Indication: SOB, HTN, DM, High cholesterol, Tobacco use, Family history Patient Location: Outpatient Stress Tech: Janet Main [place] Tech:Arianna Gold, ARRT, RT (R)(N) Ht: 5 ft 4 in Wt: 158 lbs Bra Size: 38C HR: 75 bpm BP: 146/64 mmHg BSA: 1.77 m2 TID: 0.91 BMI: 27.1 History: SOB, HTN, DM, High cholesterol, Tobacco use, Family history Procedure: Patient received 0.4 mg of intravenous Lexiscan, resting heart rate 75 bpm, resting blood pressure 146/64 mmHg, with Lexiscan maximum heart rate achieved was 96 bpm which is % of the maximum predicted heart rate and blood pressure was 156/54 mmHg. With Lexiscan, patient denied any complaint of chest pain. Cardiac Stress and Resting SPECT Images: Cardiac Stress and Resting SPECT images were obtained using technetium 99m Myoview 32.4 mCi stress and 10.63 mCi at rest. Resting and stress imaging in supine and prone positions demonstrate no evidence of fixed or reversible perfusion defects. Gated imaging demonstrates normal global and regional LV systolic function. LVEF is calculated at 59%. Conclusion: No evidence of fixed or reversible perfusion defects. Gated imaging demonstrates normal global and regional LV systolic function. LVEF is calculated at 59%. Electronically signed by : Kavitha Dixon MD 08/27/2024 23:44:53
[2024-08-27 11:19] LABS: Basophils # 0.1 K/mm3 (0-0.2); Eosinophils # 0.2 K/mm3 (0.0-0.4); Eosinophils % 1.9 % (0.1-12.0); Hematocrit 37.7 % (37.0-47.0); Hemoglobin 11.8 g/dL (12.2-16.2); Lymphocytes # 1.6 K/mm3 (0.7-4.5); Lymphocytes % 20.3 % (10-50); Mean Corpuscular HGB Conc 31.3 g/dL (31.8-35.4); Mean Corpuscular Hemoglobin 23.5 pg (27.0-31.2); Mean Corpuscular Volume 75.1 fl (81-99); Mean Platelet Volume 8.1 fl (7.4-10.4); Monocytes # 0.3 K/mm3 (0.1-1.0); Monocytes % 3.4 % (1.7-9.3); Neutrophils # 5.8 K/mm3 (1.8-7.8); Neutrophils % 73.4 % (37.0-80.0); Platelet Count 386 K/mm3 (142-424); Red Blood Count 5.02 M/mm3 (4.20-5.40); Red Cell Distribution Width 17.5 % (11.5-17.5)
[2024-08-27 11:39] LABS: Alanine Aminotransferase 23 U/L (12-78); Alkaline Phosphatase 96 U/L (38-126); Anion Gap 9.3 mEq/L (5-15); Aspartate Amino Transferase 23 U/L (14-36); Bilirubin,Direct 0.2 mg/dl (0.0-0.4); Bilirubin,Total 0.2 mg/dl (0.2-1.3); Blood Urea Nitrogen 16 mg/dl (7-17); Calcium 8.7 mg/dl (8.4-10.2); Carbon Dioxide 27 mmol/L (22.0-30.0); Chloride 103 mmol/L (98-107); Cholesterol 154 mg/dl (140-200); Estimated Glomerular Filt Rate 74 ml/min (>60); GFR (African American) 89 ML/MIN (>60); Glucose 89 mg/dl (74-100); HDL Cholesterol 31 mg/dl (40-60); Potassium 4.3 mmoL/L (3.5-5.1); Sodium 135 mmol/L (136-145); Total Protein,Serum 6.1 g/dl (6.3-8.2); Triglycerides 154 mg/dl (30-150); VLDL Cholesterol 31 mg/dL (0-40)
[2024-08-27 11:48] LABS: NT Pro Brain Natriuretic Pep. < 20.0 pg/mL (0-125)
[2024-08-27 11:50] LABS: Direct LDL Cholesterol 98.33 mg/dL (100-129)
[2024-08-27 11:55] LABS: Free T4 (Free Thyroxine) 1.19 ng/dl (0.78-2.19)
[2024-08-27 12:10] LABS: Thyroid Stimulating Hormone 1.97 uIU/mL (0.465-4.68)
[2024-08-27 12:12] LABS: Hemoglobin A1C 5.9 % (4.0-6.0)
[2024-08-27] MEDS: ISOTOPE MYOVIEW (PER STUDY) 1 DOSE IV (13:02)
[2024-08-27] MEDS: REGADENOSON 0.4MG/5ML SYRINGE 0.4 MG IV (13:02)
[2024-08-27] MEDS: SODIUM CHLORIDE 0.9% 10ML SYR (RAD ONLY) 10 ML IV ×2 (13:02)
== END 2024-08-27 23:59 | disposition home or self-care (01) ==
LOC: RAD 10:54
PROVIDERS: PCP Nurse Practitioner Family; Visit Provider Nurse Practitioner
DX: R06.09 Other forms of dyspnea (principal); I50.9 Heart failure, unspecified; E11.42 Type 2 diabetes mellitus with diabetic polyneuropathy
CPT/HCPCS: 36415; 78452; 80048; 80061; 80076; 83036; 83880; 84439; 84443; 85025; 93017; 93018; 93306; A9502; J2785

== ENCOUNTER 2024-09-04 11:58 | Outpatient (CLI) | payer MEDICARE, BC, SELFPAY ==
[2024-09-04 13:19] LABS: Iron 39 ug/dL (37-170)
[2024-09-04 13:24] LABS: Red Blood Count 4.61 M/mm3 (4.20-5.40); White Blood Count 8.7 K/mm3 (4.8-10.8)
[2024-09-04 13:25] LABS: Hemoglobin 10.8 g/dL (12.2-16.2); Mean Corpuscular HGB Conc 31.8 g/dL (31.8-35.4); Mean Corpuscular Hemoglobin 23.4 pg (27.0-31.2); Mean Corpuscular Volume 73.8 fl (81-99); Mean Platelet Volume 9.9 fl (7.4-10.4); Neutrophils % 72.2 % (37.0-80.0); Platelet Count 311 K/mm3 (142-424); Red Cell Distribution Width 17.2 % (11.5-17.5)
[2024-09-04 13:26] LABS: Basophils # 0.1 K/mm3 (0-0.2); Basophils % 0.6 % (0.1-2.0); Eosinophils # 0.2 K/mm3 (0.0-0.4); Eosinophils % 2.1 % (0.1-12.0); Lymphocytes # 1.8 K/mm3 (0.7-4.5); Monocytes # 0.4 K/mm3 (0.1-1.0); Monocytes % 4.5 % (1.7-9.3); Neutrophils # 6.3 K/mm3 (1.8-7.8)
[2024-09-04 13:31] LABS: Total Iron Binding Capacity 390 ug/dL (265-497)
[2024-09-04 13:54] LABS: Ferritin 46.8 ng/ml (11.1-264)
== END 2024-09-04 23:59 | disposition home or self-care (01) ==
LOC: LAB 12:00
PROVIDERS: PCP Nurse Practitioner Family; Visit Provider Internal Medicine Medical Oncology
DX: E61.1 Iron deficiency (principal); E11.69 Type 2 diabetes mellitus with other specified complication; K55.21 Angiodysplasia of colon with hemorrhage
CPT/HCPCS: 36415; 82728; 83540; 83550; 85025

== ENCOUNTER 2024-09-13 15:14 | Outpatient (CLI) | payer MEDICARE, BC, SELFPAY ==
--- NOTE | 2024-09-13 15:14 | CT_ITS ---
FINAL REPORT TECHNIQUE: Multiple axial CT sections were performed through the face without IV contrast. Coronal reconstruction images were performed. This study was performed with techniques to keep radiation doses as low as reasonably achievable (ALARA). Individualized dose reduction techniques using automated exposure control or adjustment of mA and/or kV according to the patient's size were employed. CLINICAL HISTORY: recurrent sinus infections COMPARISON: 12/15/2023 FINDINGS: There is abnormal mucoperiosteal thickening in the right maxillary sinus. There is a small air-fluid level. Findings are markedly improved from the prior study. Left maxillary sinus is now well aerated. There has been resection of the ostiomeatal units bilaterally. The frontal, ethmoid, sphenoid, and mastoid air cells are all well aerated. IMPRESSION: Interval resection of ostiomeatal units. Complete resolution of previously noted left maxillary sinusitis with improvement of previously noted right maxillary sinusitis. Reviewed, Interpreted and Dictated by Dhruv Knowles MD Transcribed by Sommer Arias Authenticated and [facility]
== END 2024-09-13 23:59 | disposition home or self-care (01) ==
LOC: RAD 15:14
PROVIDERS: PCP Nurse Practitioner Family; Visit Provider Nurse Practitioner
DX: J32.9 Chronic sinusitis, unspecified (principal)
CPT/HCPCS: 70486

== ENCOUNTER 2024-10-03 11:02 | Outpatient (CLI) | payer MEDICARE, OTHER, SELFPAY ==
--- NOTE | 2024-10-03 11:22 | XR_ITS ---
FINAL REPORT CLINICAL HISTORY: PAIN,JOINT,KNEE,RIGHT COMPARISON: None FINDINGS: RIGHT KNEE: There is no acute fracture or dislocation. There is mild medial compartment degenerative change present. Osteopenia is noted. No joint effusion is present. There is no soft tissue abnormality. IMPRESSION: Mild degenerative change without acute bony abnormality. Reviewed, Interpreted and Dictated by Jun Rivera MD Transcribed by Alejandra Sampson Authenticated and [facility]
[2024-10-03 11:32] LABS: Basophils # 0.1 K/mm3 (0-0.2); Basophils % 0.7 % (0.1-2.0); Eosinophils # 0.3 K/mm3 (0.0-0.4); Eosinophils % 2.7 % (0.1-12.0); Hematocrit 36.6 % (37.0-47.0); Hemoglobin 11.6 g/dL (12.2-16.2); Lymphocytes # 1.7 K/mm3 (0.7-4.5); Lymphocytes % 16.9 % (10-50); Mean Corpuscular HGB Conc 31.7 g/dL (31.8-35.4); Mean Corpuscular Hemoglobin 23.6 pg (27.0-31.2); Mean Corpuscular Volume 74.4 fl (81-99); Monocytes # 0.4 K/mm3 (0.1-1.0); Monocytes % 4.4 % (1.7-9.3); Neutrophils # 7.4 K/mm3 (1.8-7.8); Neutrophils % 74.8 % (37.0-80.0); Platelet Count 420 K/mm3 (142-424); Red Blood Count 4.92 M/mm3 (4.20-5.40); Red Cell Distribution Width 17.3 % (11.5-17.5); White Blood Count 9.9 K/mm3 (4.8-10.8)
[2024-10-03 11:41] LABS: Hemoglobin A1C 5.7 % (4.0-6.0)
== END 2024-10-03 23:59 | disposition home or self-care (01) ==
LOC: LAB 11:04
PROVIDERS: PCP Nurse Practitioner Family; Referring Provider Nurse Practitioner Family; Visit Provider Physician Assistant
DX: D50.9 Iron deficiency anemia, unspecified (principal); E11.9 Type 2 diabetes mellitus without complications; M25.561 Pain in right knee
CPT/HCPCS: 36415; 73562; 82043; 83036; 85025

== ENCOUNTER 2024-11-20 08:59 | Outpatient (CLI) | payer MEDICARE, OTHER, SELFPAY ==
--- NOTE | 2024-11-20 09:02 | XR_ITS ---
FINAL REPORT CLINICAL HISTORY: Osteoporosis screening COMPARISON: None FINDINGS: Using 1/3 measurement, the bone mineral density of the right forearm is 0.652 g/cm2, corresponding to T-score of -0.7, within normal limits. Using the left hip, the bone mineral density of the femoral neck is 0.794 g/cm2, corresponding to a T-score of -0.5, within normal limits. Using the right hip, the bone mineral density of the femoral neck is 0.764 g/cm2, corresponding to a T-score of -0.8, within normal limits. FRAX not reported because all T-scores at or above -1.0. NOTE: T-score: Standard deviation compared with peak bone mass of young adult mean. *Following the recommendations of the International Society of Bone densitometry, classification of hip BMD is based on the lower of two T-scores; total hip or femoral neck. IMPRESSION: Normal bone mineral density of the lumbar spine and hips. Reviewed, Interpreted and Dictated by Jun Rivera MD Transcribed by Sommer Arias Authenticated and [facility]
--- NOTE | 2024-11-20 09:02 | MM_ITS ---
PROCEDURE INFORMATION: Exam: MG Bilateral Screening 3D Mammography Exam date and time: 11/20/2024 9:19 AM Age: 59 years old Clinical indication: Screening examination TECHNIQUE: Imaging protocol: Bilateral Screening tomosynthesis and 2D mammography including computer-aided detection (CAD) when performed. COMPARISON: 1. MG MM DIG SCREENING MAMM BI W/CAD 11/01/2023 10:26 AM 2. MG MM DIG SCREENING MAMM BI W/CAD 10/25/2022 1:40 PM FINDINGS: MAMMOGRAPHY: Breast composition: There are scattered areas of fibroglandular density. Mass: None. Architectural distortion: None. Calcifications: No suspicious calcifications. Asymmetric density: None. Skin thickening: None. Axillary adenopathy: None. IMPRESSION: No mammographic evidence of malignancy. Annual screening is recommended unless otherwise clinically indicated. ASSESSMENT: BI-RADS Category 1: Negative.
== END 2024-11-20 23:59 | disposition home or self-care (01) ==
LOC: RAD 09:00
PROVIDERS: PCP Nurse Practitioner Family; Visit Provider Nurse Practitioner Family
DX: Z78.0 Asymptomatic menopausal state (principal); Z12.31 Encounter for screening mammogram for malignant neoplasm of breast
CPT/HCPCS: 77063; 77067; 77080

== ENCOUNTER 2024-12-05 10:55 | Outpatient (CLI) | payer MEDICARE, OTHER, SELFPAY ==
[2024-12-05 12:03] LABS: Blood Urea Nitrogen 11 mg/dl (7-17); Calcium 8.2 mg/dl (8.4-10.2); Carbon Dioxide 30 mmol/L (22.0-30.0); Chloride 101 mmol/L (98-107); Chol/HDL Ratio 4.5 (1-3.5); Cholesterol 135 mg/dl (140-200); Estimated Glomerular Filt Rate 74 ml/min (>60); GFR (African American) 89 ML/MIN (>60); Glucose 72 mg/dl (74-100); HDL Cholesterol 30 mg/dl (40-60); Sodium 135 mmol/L (136-145); Triglycerides 118 mg/dl (30-150); VLDL Cholesterol 24 mg/dL (0-40)
[2024-12-05 12:13] LABS: Direct LDL Cholesterol 75.75 mg/dL (100-129)
[2024-12-05 12:14] LABS: Magnesium 0.8 mg/dl (1.6-2.3)
== END 2024-12-05 23:59 | disposition home or self-care (01) ==
LOC: LAB 10:56
PROVIDERS: PCP Nurse Practitioner Family; Visit Provider Physician Assistant
DX: I50.9 Heart failure, unspecified (principal); E11.42 Type 2 diabetes mellitus with diabetic polyneuropathy; E61.1 Iron deficiency
CPT/HCPCS: 36415; 80048; 80061; 83735

== ENCOUNTER 2025-01-28 09:33 | Outpatient (CLI) | payer MEDICARE, OTHER, SELFPAY ==
--- NOTE | 2025-01-28 09:38 | MR_ITS ---
FINAL REPORT CLINICAL HISTORY: *PT HAS SCREWS IN NECK* RT KNEE PAIN. MEDIAL SIDED KNEE PAIN. KNEE INSTABILITY. NO INJURY OR TRAUMA COMPARISON: None FINDINGS: Multi planar MR imaging was performed of the right knee. The anterior and posterior cruciate ligaments are intact. The quadriceps and patellar tendons are intact. Mild complex abnormal signal posterior horn medial meniscus consistent with intrasubstance degeneration. The medial and lateral collateral ligaments appear intact. The medial and lateral retinacula appear intact. Mild edema of the medial femoral condyle. Small joint effusion. IMPRESSION: Intrasubstance degeneration posterior horn medial meniscus. Small osteochondral defect medial femoral condyle. Reviewed, Interpreted and Dictated by Dhruv Knowles MD Transcribed by Sommer Arias Authenticated and [facility]
== END 2025-01-28 23:59 | disposition home or self-care (01) ==
LOC: RAD 09:34
PROVIDERS: PCP Nurse Practitioner Family; Visit Provider Orthopaedic Surgery Adult Reconstructive Orthopaedic Surgery
DX: M23.321 Other meniscus derangements, posterior horn of medial meniscus, right knee (principal); M24.19 Other articular cartilage disorders, other specified site
CPT/HCPCS: 73721

== ENCOUNTER 2025-02-11 11:46 | Outpatient (CLI) | payer MEDICARE, OTHER, SELFPAY ==
--- NOTE | 2025-02-11 12:05 | ECG_ITS ---
APPROVED REPORT Exam: Resting ECG HR:74 bpm ECG Measurements Heart Rate 74 AXES NH 158 P 57 QRSd 100 QRS 62 QT 374 T 61 QTc 402 Conclusion SINUS RHYTHM POSSIBLE LEFT ATRIAL ENLARGEMENT [-0.1mV P-WAVE IN V1/V2] BORDERLINE ECG UNCONFIRMED REPORT Electronically signed by : Otis Bray MD 02/12/2025 08:49:27
[2025-02-11 12:10] LABS: Microscopic, Urine URINE MICROSCOPIC (MICROSCOPIC)
--- NOTE | 2025-02-11 12:50 | XR_ITS ---
FINAL REPORT TECHNIQUE: Chest PA & Lateral CLINICAL HISTORY: Shortness of breath Preop History COPD COMPARISON: 09/22/2023 FINDINGS: 2 views of the chest were performed. The heart size is normal. The mediastinum is within normal limits. There is no acute cardiopulmonary process. There are no pleural effusions. There is no pneumothorax. The bony thorax appears intact. Surgical clips are noted in the thoracic inlet. There are tendon anchors in the left humeral head. IMPRESSION: No acute cardiopulmonary process. Reviewed, Interpreted and Dictated by Dhruv Knowles MD Transcribed by Rachele Smith Authenticated and [facility]
[2025-02-11 12:59] LABS: Basophils # 0.1 K/mm3 (0-0.2); Basophils % 0.8 % (0.1-2.0); Eosinophils # 0.3 Kmm3 (0.0-0.4); Eosinophils % 3.3 % (0.1-12.0); Hemoglobin 10.1 g/dL (12.2-16.2); Immature Granulocytes # 0.08 10^3uL; Immature Granulocytes % 0.9 %; Lymphocytes # 1.8 K/mm3 (0.7-4.5); Lymphocytes % 20.4 % (10-50); Mean Corpuscular HGB Conc 29.7 g/dL (31.8-35.4); Mean Corpuscular Hemoglobin 20.6 pg (27.0-31.2); Mean Corpuscular Volume 69.4 fl (81-99); Mean Platelet Volume 9.9 fl (7.4-10.4); Monocytes # 0.4 K/mm3 (0.1-1.0); Monocytes % 4.2 % (1.7-9.3); Neutrophils # 6.2 K/mm3 (1.8-7.8); Neutrophils % 70.4 % (37.0-80.0); Nucleated Red Blood Cells # 0 10^3/uL; Nucleated Red Blood Cells % 0 %; Platelet Count 428 K/mm3 (142-424); Red Cell Distribution Width 18.5 % (11.5-17.5); Red Cell Distribution Width-SD 45.6 fL; White Blood Count 8.8 K/mm3 (4.8-10.8)
[2025-02-11 13:00] LABS: Appearance,Urine CLEAR (Clear); Bilirubin,Urine Negative (Negative); Blood, Urine Negative (Negative); Color,Urine YELLOW (Yellow); Glucose,Urine (UA) Negative (Negative); Ketones,Urine Negative (Negative); Leukocyte Esterase,Urine 3+ (Negative); Nitrate,Urine POSITIVE (Negative); Protein,Urine Negative (Negative); Urobilinogen,Urine 0.2 EU/dl (0.2)
[2025-02-11 13:11] LABS: INR 0.93 (0.9-1.1); Prothrombin Time 10.4 seconds (10.1-12.5)
[2025-02-11 13:13] LABS: Barbiturates Screen,Urine Negative ng/ml (<200)
[2025-02-11 13:14] LABS: Amphetamine/Metha Screen,Urine Negative ng/ml (<1000); Benzodiazepines Screen,Urine Negative ng/ml (<200); WBC,Urine 20-50 #/hpf (0-3)
[2025-02-11 13:15] LABS: Bacteria,Urine 4+ /lpf; Cannabinoid Screen,Urine Negative ng/ml (<50)
[2025-02-11 13:16] LABS: Cocaine Screen,Urine Negative ng/ml (<300); Methadone Screen,Urine Negative ng/ml (<300)
[2025-02-11 13:17] LABS: Opiate Screen,Urine Negative ng/ml (<300)
[2025-02-11 13:18] LABS: Phencyclidine Screen,Urine Negative ng/ml (<25)
[2025-02-11 13:32] LABS: Alanine Aminotransferase 20 U/L (12-78); Albumin Level 4.1 g/dl (3.5-5.0); Albumin/Globulin Ratio 1.9 (1.1-1.8); Alkaline Phosphatase 108 U/L (38-126); Anion Gap 8.8 mEq/L (5-15); Aspartate Amino Transferase 24 U/L (14-36); Bilirubin,Total 0.3 mg/dl (0.2-1.3); Blood Urea Nitrogen 10 mg/dl (7-17); Calcium 9.1 mg/dl (8.4-10.2); Carbon Dioxide 32 mmol/L (22.0-30.0); Chloride 101 mmol/L (98-107); Estimated Glomerular Filt Rate 86 ml/min (>60); GFR (African American) 104 ML/MIN (>60); Globulin 2.2 g/dL (1.3-3.2); Glucose 71 mg/dl (74-100); Potassium 4.8 mmoL/L (3.5-5.1); Sodium 137 mmol/L (136-145); Total Protein,Serum 6.3 g/dl (6.3-8.2)
[2025-02-11 14:27] LABS: Magnesium 1.6 mg/dl (1.6-2.3)
[2025-02-11 20:33] LABS: MRSA DNA PCR Negative (Negative)
== END 2025-02-11 23:59 | disposition home or self-care (01) ==
LOC: LAB 11:50
PROVIDERS: Physician Assistant; PCP Nurse Practitioner Family; Visit Provider Orthopaedic Surgery Adult Reconstructive Orthopaedic Surgery
DX: R94.31 Abnormal electrocardiogram [ECG] [EKG] (principal); R06.02 Shortness of breath
CPT/HCPCS: 36415; 71046; 80053; 80307; 81001; 83036; 83735; 85025; 85610; 85730; 87077; 87086; 87088; 87641; 93005

== ENCOUNTER 2025-04-08 14:08 | Outpatient (CLI) | payer MEDICARE, OTHER, SELFPAY ==
--- OUTSIDE RECORDS SUMMARY | 2025-04-08 14:14 | XMS_ITS | Clinical Summary ---
Author Organization Healthcare Address [address] [place] [address] Care Team Providers Care Assistant Executive Housekeeper Name Role Phone Unavailable Primary Care Provider Unavailabl e Social History Tobacco Use Types Packs/Day Years Used Date Smoking Tobacco: Never Assessed Comments Unknown Sex and Gender Information Value Date Recorded Sex Assigned at Not on file Legal Sex Female 8:06 PM EDT Gender Identity Not on file Sexual Orientation Not on file Last Filed Vital Signs Vital Sign Reading Time Taken Comments Blood Pressure 96/62 01/05/2021 7:48 AM EDT Pulse 78 01/05/2021 7:48 AM EDT Temperature 36.8 C (98.3 F) 01/05/2021 7:48 AM EDT Respiratory Rate - - Oxygen Saturation - - Inhaled Oxygen Concentration - - Weight 77.6 kg (171 lb 0.9 oz) 01/05/2021 7:48 A M EDT Height 264.2 cm (8' 8 ) 01/05/2021 7:48 AM EDT Body Mass Index 11.12 01/05/2021 7:48 AM EDT Plan of Treatment Health Maintenance Due Date Last Done Comments [facility]-Depression Screening 1966 [facility]-Infant/Child/Adol SDOH Screenings 1966 [facility]Y- SDOH Screenings 02/16/1984 [facility]Y-Adult SDOH Screenings 02/16/1984 [facility]Y-DTaP,Tdap,and Td Vaccine s (1 - Tdap) 1985 [facility]-Hepatitis B Vaccines (1 of 3 - 19+ 3-dose series) 1985 [facility]-Pap Smear 1987 [facility]-Cervical Cancer Screening 02/16/1996 [facility]Y-HPV/Cotest 02/16/1996 CT Colonography 2011 Colonoscopy 2011 FIT-DNA 2011 FIT 2011 FOBT 2011 Sigmoidoscopy 2011 [facility]Y-Colorectal Cancer Screening 2011 [facility]Y-Pneumococcal Vaccine: 50 + Years (1 of 1 - PCV) 02/16/2016 UKY-Zoster Vaccines (1 of 2) 02/16/2016 [id number] Vaccine (1 - 20 24-25 season) 2024 UKY-Influenza Vaccine (#1) 2025 HPV Vaccines Aged Out No longer eligi ble based on patient's age to complete this topic UKY-HIB Vaccines Aged Out No longer e ligible based on patient's age to complete this topic UKY-Hepatitis A Vaccines Aged Out No longer eligible based on patient's age to complete this topic UKY-IPV Vaccines Aged Out No longer e ligible based on patient's age to complete this topic UKY-Rotavirus Vaccines Aged Out No lo nger eligible based on patient's age to complete this topic
--- OUTSIDE RECORDS SUMMARY | 2025-04-08 14:14 | XMS_ITS | Clinical Summary ---
[facility] [address] [place] [address] Care Team Providers Care Landcare Officer Name Role Phone Otis Bray MD Primary Care Provider [phone] Allergies No known active allergies Medications Spiriva Respimat 1.25 MCG/ACT aerosol solution inhaler INHALE TWO PUFFS BY MOUTH DAILY (BULK) 11/23/2022 Active Breo Ellipta 200-25 MCG/ACT inhaler INHALE 1 PUFF BY MOUTH ONCE DAILY (BULK) 11/23/2022 Active fluticasone (FLONASE) 50 MCG/ACT nasal spray INSTILL 2 SPRAYS IN EACH NOSTRIL EVERY DAY (BULK) 11/23/2022 Active cyclobenzaprine (FLEXERIL) 10 MG tablet 12/14/2022 Active amitriptyline (ELAVIL) 100 MG tablet TAKE ONE TABLET BY MOUTH DAILY AT 9 PM AT BEDTIME 11/23/2022 Active potassium chloride (K-DUR,KLOR-CON ) 20 MEQ CR tablet 12/14/2022 Active metFORMIN (GLUCOPHAGE) 1000 MG tablet 12/14/2022 Acti ve omeprazole (priLOSEC) 40 MG capsule 12/14/2022 Active cetirizine (zyrTEC) 10 MG tablet TAKE ONE TABLET BY MOUTH DAILY AT 9 AM 11/15/2022 Active citalopram (CeleXA) 40 MG tablet 12/14/2022 Active bisoprolol (ZEBeta) 5 MG tablet 12/14/2022 Active lisinopril-hydr ochlorothiazide (PRINZIDE,ZESTO RETIC) 20-25 MG per tablet 12/14/2022 Active Nicotine Step 1 21 MG/24HR patch 11/03/2022 Active vitamin D (ERGOCALCIFEROL ) 1.25 MG (32435 UT) capsule capsule TAKE 1 CAPSULE BY MOUTH EVERY MONDAY AT 9AM 12/14/2022 Active oxyCODONE-aceta minophen (Percocet) 5-325 MG per tablet Take 1 tablet by mouth Every 4 (Four) Hours As Needed for Pain. 42 tablet 02/19/2025 1:04 PM EDT 02/19/2025 Active Active Problems Problem Noted Date Diagnosed Date Tobacco abuse 12/27/2022 Spondylolisthesis at L4-L5 level 12/26/2022 HTN (hypertension) 12/26/2022 Depression with anxiety 12/26/2022 Type 2 diabetes mellitus 12/26/2022 GERD (gastroesophageal reflux disease) S/P lumbar fusion, decompression L4-5 12/26/2022 COPD (chronic obstructive pulmonary disease) 06/2023 Social History Tobacco Use Types Packs/Day Years Used Date Smoking Tobacco: Former Cigarettes 1 25 0 09/1997 - 09/2022 Smokeless Tobacco: Never Tobacco Cessation:Counseling Given: Not Answered Alcohol Use Standard Drinks/Week Comments Never 0 (1 standard drink = 0.6 oz pur e alcohol) Abuse Screen Answer Date Recorded Unsafe at Home or Work/School Not on file Feels Threatened by Someone? Not on file 07/2024 Does Anyone Keep You from Co ntacting Others or Doint Things Outside the Home? Not on file 12/28/2023 Physical Sign of Abuse Present Not on file 0 12/28/2023 Housing Stability Answer Date Recorded Current Living Arrangements Not on file 12/17 Potentially Unsafe Housing Conditions Not on derek e 12/28/2023 Family and Community Support Answer Selwyn e Recorded Help with Day-to-Day Activities Not on file 06/26/2023 Lonely or Isolated Not on file 06/26/2023 Employment Answer Date Recorded Do you want help finding or keeping work or a jeremy b? Not on file 06/26/2023 Disabilities Answer Date Recorded Concentrating, Remembering, or Making Decisions Difficulty Not on file 12/28/2023 Doing Errands Independently Difficulty Not on fi le 12/28/2023 Education Answer Date Recorded Help with school or training? Not on file Preferred Language Not on file 12/21/2023 Comments No Sex and Gender Information Value Date Recorded Sex Assigned at Not on file Legal Sex Female 10:17 AM EDT Gender Identity Not on file Sexual Orientation Not on file Last Filed Vital Signs Vital Sign Reading Time Taken Comments Blood Pressure 134/61 12/27/2022 9:15 AM EDT Pulse 80 12/27/2022 9:15 AM EDT Temperature 36.7 C (98 F) 12/27/2022 7:31 AM EDT Respiratory Rate 18 12/27/2022 7:31 AM EDT Oxygen Saturation 100% 12/27/2022 7:38 AM EDT Inhaled Oxygen Concentration - - Weight 74.8 kg (164 lb 14.5 oz) 12/26/2022 7:18 AM EDT Height 162.6 cm (5' 4 ) 12/26/2022 7:18 AM EDT Body Mass Index 28.31 12/26/2022 7:18 AM EDT Plan of Treatment Health Maintenance Due Date Last Done Comments Annual Gynecologic Pelvic an d Breast Exam 1965 Pneumococcal Vaccine 50+ (1 of 2 - PCV) 1985 TDAP/TD VACCINES (1 - Tdap) 1985 MAMMOGRAM 2006 COLOGUARD 2011 COLON CANCER SCREENING 5 YEA R SIGMOIDOSCOPY 2011 COLONOSCOPY 2011 [address]AL CANCER SCREENING 2011 CT COLONOGRAPHY 2011 FECAL OCCULT BLOOD TEST 2011 FIT Testing (1 year) 2011 ZOSTER VACCINE (1 of 2) 02/16/2016 ANNUAL PHYSICAL 12/19/2022 HEPATITIS C SCREENING 12/19/2022 COVID-19 Vaccine ( season) 05/19/202403/2021, 12/25/2020 INFLUENZA VACCINE 06/18/2025 HEMOGLOBIN A1C Discontinued 12/19/2022 Medical Devices Implanted Type Area Renewable Energy Engineer Device Identifier Shelf Expiration Date Model / Serial / Lot Hemost Abs Surgifoam Sz100 8x12 10mm - [id number] Implanted:Qty : 1 on 12/26/2022 by Rolan Beckwith MD at [facility] Implant N/A: Spine Lumbar [employer] J [employer] J 1974 / / Kt Seal Hemos Abs Floseal Matrx Fast/Prep 10ml - [id number] Implanted:Qty : 1 on 12/26/2022 by Rolan Beckwith MD at [facility] Implant N/A: Spine Lumbar [facility] 10/19/2024 [id number] / / [id number] Allogr Bone Vivigen Celluar Matrx Formable 5cc - [id number] Implanted:Qty : 1 on 12/26/2022 by Rolan Beckwith MD at [facility] Implant N/A: Spine Lumbar [facility] 09/28/2023 [id number] / / [id number] Scrw Expedium Pa Ti 7x45mm - [id number] Implanted:Qty : 1 on 12/26/2022 by Rolan Beckwith MD at [facility] Implant N/A: Spine Lumbar DEPUY SPINE 12/27/2022 [id number] / / N/A Scrw Expedium Pa Ti 6x50mm - [id number] Implanted:Qty : 2 on 12/26/2022 by Rolan Beckwith MD at [facility] Implant N/A: Spine Lumbar DEPUY SPINE 12/27/2022 [id number] / / N/A Scrw Expedium Pa Ti 7x40mm - [id number] Implanted:Qty : 1 on 12/26/2022 by Rolan Beckwith MD at [facility] Implant N/A: Spine Lumbar DEPUY SPINE 12/27/2022 [id number] / / N/A Ulysses Prebnt Spine Expedium Ti 5.5x40mm - [id number] Implanted:Qty : 2 on 12/26/2022 by Rolan Beckwith MD at [facility] Implant N/A: Spine Lumbar DEPUY SPINE 12/27/2022 [id number] / / N/A Scrw Viper [address] - [id number] Implanted:Qty : 4 on 12/26/2022 by Rolan Beckwith MD at [facility] Implant N/A: Spine Lumbar DEPUY SPINE 12/27/2022 [id number] / / N/A Spacr Tpal Peek [id number] - [id number] Implanted:Qty : 1 on 12/26/2022 by Rolan Beckwith MD at [facility] Implant N/A: Spine Lumbar DEPUY SPINE 12/27/2022 [id number] / / N/A Procedures Procedure Name Priority Date/Time Associated Diagnosis Comments HEMOGLOBIN A1C Routine 12/19/2022 11:44 AM EDT from Last 3 Months or Most Recently Relevant to Health Maintenance Results * (ABNORMAL) Hemoglobin A1c (12/19/2022 11:44 AM EDT) Hemoglobin A1C 6.20(H) 4.80 - 5.60 % 12/19/2022 12:20 PM EDT [facility] Blood Venipuncture / Unknown 12/19/2022 11:44 AM EDT 12/19/2022 11:58 AM EDT Narrative [facility] - 12/19/2022 12:20 PM EDT Hemoglobin A1C Ranges: Increased Risk for Diabetes 5.7% to 6.4% Diabetes >= 6.5% Diabetic Goal < 7.0% us Rolan Beckwith MD LAB BLOOD ORDERABLES Final Res ult [facility]
[address] [place] [address], from Last 3 Months or Most Recently Relevant to Health Maintenance Insurance [facility] DUAL COMPLETE MEDIC Care Teams Landcare Officer Relationship Specialty Start Date End Date Otis Bray MD [address] [facility] [address] [place] [id number] PCP - General Adolescent Medicine 08/19/19
[2025-04-08 14:33] LABS: Hematocrit 29.3 % (37.0-47.0); Hemoglobin 8.6 g/dL (12.2-16.2); Immature Granulocytes % 0.4 %; Mean Corpuscular HGB Conc 29.4 g/dL (31.8-35.4); Mean Corpuscular Hemoglobin 19.3 pg (27.0-31.2); Mean Corpuscular Volume 65.8 fl (81-99); Nucleated Red Blood Cells % 0 %; Platelet Count 364 K/mm3 (142-424); Red Blood Count 4.45 M/mm3 (4.20-5.40); Red Cell Distribution Width-SD 44.2 fL; White Blood Count 9.8 K/mm3 (4.8-10.8)
[2025-04-08 15:35] LABS: Iron 25 ug/dL (37-170)
[2025-04-08 15:46] LABS: Total Iron Binding Capacity 459 ug/dL (265-497)
[2025-04-08 16:11] LABS: Ferritin 10.6 ng/ml (11.1-264)
== END 2025-04-08 23:59 | disposition home or self-care (01) ==
LOC: LAB 14:09
PROVIDERS: PCP Nurse Practitioner Family; Visit Provider Internal Medicine Medical Oncology
DX: D50.0 Iron deficiency anemia secondary to blood loss (chronic) (principal)
CPT/HCPCS: 36415; 82728; 83540; 83550; 85025

== ENCOUNTER 2025-04-25 10:48 | Outpatient (CLI) | payer MEDICARE, OTHER, SELFPAY ==
--- OUTSIDE RECORDS SUMMARY | 2025-04-25 10:52 | XMS_ITS | Clinical Summary ---
[facility] [address] [place] [address] Care Team Providers Care Behavioral Health Specialist Name Role Phone Otis Bray MD Primary Care Provider [phone] Allergies No known active allergies Medications Spiriva [...] Active vitamin D (ERGOCALCIFEROL ) 1.25 MG (02828 UT) capsule capsule TAKE 1 CAPSULE BY [...] Discontinued 12/19/2022 Medical Devices Implanted Type Area Cocoa Mill Operator Device Identifier Shelf Expiration Date Model / Serial / Lot Hemost Abs Surgifoam Sz100 8x12 10mm - [id number] Implanted:Qty : 1 on 12/26/2022 by Rolan Beckwith MD at [facility] Implant N/A: Spine Lumbar ETH[employer]ON DIV OF J AND J 1974 / / Kt Seal Hemos Abs Floseal Matrx Fast/Prep 10ml - [id number] Implanted:Qty : 1 on 12/26/2022 by Rolan Beckwith MD at [facility] Implant N/A: Spine Lumbar [facility] 10/19/2024 [id number] / / [id number] Allogr Bone Vivigen Celluar Matrx Formable 5cc - [id number] Implanted:Qty : 1 on 12/26/2022 by Rolan Beckwith MD at [facility] Implant N/A: Spine Lumbar [facility] 09/28/2023 [id number] / / [id number] Scrw Expedium Pa Ti 7x45mm - [id number] Implanted:Qty : 1 on 12/26/2022 by Rolan Beckwith MD at [facility] Implant N/A: Spine Lumbar DEPUY SPINE 12/27/2022 [id number] / / N/A Scrw Expedium Pa Ti 6x50mm - [id number] Implanted:Qty : 2 on 12/26/2022 by Rolan Beckwith MD at [facility] Implant N/A: Spine Lumbar DEPUY SPINE 12/27/2022 [id number] / / N/A Scrw Expedium Pa Ti 7x40mm - [id number] Implanted:Qty : 1 on 12/26/2022 by Rolan Beckwith MD at [facility] Implant N/A: Spine Lumbar DEPUY SPINE 12/27/2022 [id number] / / N/A Ulysses Prebnt Spine Expedium Ti 5.5x40mm - [id number] Implanted:Qty : 2 on 12/26/2022 by Rolan Beckwith MD at [facility] Implant N/A: Spine Lumbar DEPUY SPINE 12/27/2022 [id number] / / N/A Scrw Viper [address] - [id number] Implanted:Qty : 4 on 12/26/2022 by Rolan Beckwith MD at [facility] Implant N/A: Spine Lumbar DEPUY SPINE 12/27/2022 [id number] / / N/A Spacr Tpal Peek [id number] - [id number] Implanted:Qty : 1 on 12/26/2022 by Rolan Beckwith MD at [facility] Implant N/A: Spine Lumbar DEPUY SPINE 12/27/2022 [id number] / / N/A Procedures Procedure Name Priority Date/Time Associated Diagnosis Comments HEMOGLOBIN A1C Routine 12/19/2022 11:44 AM EDT from Last 3 Months or Most Recently Relevant to Health Maintenance Results * (ABNORMAL) Hemoglobin A1c (12/19/2022 11:44 AM EDT) Hemoglobin A1C 6.20(H) 4.80 - 5.60 % 12/19/2022 12:20 PM EDT [facility] Blood Venipuncture / Unknown 12/19/2022 11:44 AM EDT 12/19/2022 11:58 AM EDT Narrative [facility] - 12/19/2022 12:20 PM EDT Hemoglobin A1C Ranges: Increased Risk for Diabetes 5.7% to 6.4% Diabetes >= 6.5% Diabetic Goal < 7.0% us Rolan Beckwith MD LAB BLOOD ORDERABLES Final Res ult [facility]
[address] [place] [address], from Last 3 Months or Most Recently Relevant to Health Maintenance Insurance [facility] DUAL COMPLETE MEDIC Care Teams Behavioral Health Specialist Relationship Specialty Start Date End Date Otis Bray MD [address] [facility] [address] [place] [id number] PCP - General Adolescent Medicine 08/19/19
--- OUTSIDE RECORDS SUMMARY | 2025-04-25 10:52 | XMS_ITS | Clinical Summary ---
Author Organization Healthcare Address [address] [place] [address] Care Team Providers Care Submersible Pilot Name Role Phone Unavailable Primary Care Provider [...] 02/16/2016 UKY-Zoster Vaccines (1 of 2) 02/16/2016 [id number] Vaccine (1 - 20 24-25 season) 2024 [...]
[2025-04-25] MEDS: ferumoxytoL 510 MG in 0.9 % SODIUM CHLORIDE 50 ML 268 MG IV (11:01)
[2025-04-25 11:05] VITALS: BP 165/83; PULSE 71; RESP 18; TEMP 36.8; O2SAT 97
[2025-04-25 11:30] VITALS: BP 160/80
== END 2025-04-25 11:35 | disposition home or self-care (01) ==
LOC: INF 10:49
PROVIDERS: PCP Nurse Practitioner Family; Visit Provider Internal Medicine Medical Oncology
DX: D50.0 Iron deficiency anemia secondary to blood loss (chronic) (principal)
CPT/HCPCS: 96374; Q0138

== ENCOUNTER 2025-05-02 10:47 | Outpatient (CLI) | payer MEDICARE, OTHER, SELFPAY ==
--- OUTSIDE RECORDS SUMMARY | 2025-05-02 10:50 | XMS_ITS | Clinical Summary ---
Author Organization Healthcare Address [address] [place] [address] Care Team Providers Care Russet Repairer Name Role Phone Unavailable Primary Care Provider [...] 02/16/2016 UKY-Zoster Vaccines (1 of 2) 02/16/2016 [id number] Vaccine (1 - 20 24-25 season) 2024 [...]
--- OUTSIDE RECORDS SUMMARY | 2025-05-02 10:50 | XMS_ITS | Clinical Summary ---
[facility] [address] [place] [address] Care Team Providers Care Strand And Binder Controller Name Role Phone Otis Bray MD Primary Care Provider [phone] Allergies No known active allergies Medications Spiriva [...] Active vitamin D (ERGOCALCIFEROL ) 1.25 MG (86551 UT) capsule capsule TAKE 1 CAPSULE BY [...] Discontinued 12/19/2022 Medical Devices Implanted Type Area Office Services Assistant Device Identifier Shelf Expiration Date Model / Serial / Lot Hemost Abs Surgifoam Sz100 8x12 10mm - [id number] Implanted:Qty : 1 on 12/26/2022 by Rolan Beckwith MD at [facility] Implant N/A: Spine Lumbar ETH[employer]ON DIV [employer] J AND J 1974 / / Kt Seal Hemos Abs Floseal Matrx Fast/Prep 10ml - [id number] Implanted:Qty : 1 on 12/26/2022 by Rolan Beckwith MD at [facility] Implant N/A: Spine Lumbar [facility] 10/19/2024 [id number] / / [id number] Allogr Bone Vivigen Celluar Matrx Formable 5cc - [id number] Implanted:Qty : 1 on 12/26/2022 by Rolan Beckwith MD at [facility] Implant N/A: Spine Lumbar [facility] 09/28/2023 [id number] / / [id number] Scrw Expedium Pa Ti 7x45mm - [id number] Implanted:Qty : 1 on 12/26/2022 by Rolan Beckwith MD at [facility] Implant N/A: Spine Lumbar DEPUY SPINE 12/27/2022 [id number] / / N/A Scrw Expedium Pa Ti 6x50mm - [id number] Implanted:Qty : 2 on 12/26/2022 by Rolan Beckwith MD at [facility] Implant N/A: Spine Lumbar DEPUY SPINE 12/27/2022 [id number] / / N/A Scrw Expedium Pa Ti 7x40mm - [id number] Implanted:Qty : 1 on 12/26/2022 by Rolan Beckwith MD at [facility] Implant N/A: Spine Lumbar DEPUY SPINE 12/27/2022 [id number] / / N/A Ulysses Prebnt Spine Expedium Ti 5.5x40mm - [id number] Implanted:Qty : 2 on 12/26/2022 by Rolan Beckwith MD at [facility] Implant N/A: Spine Lumbar DEPUY SPINE 12/27/2022 [id number] / / N/A Scrw Viper [address] - [id number] Implanted:Qty : 4 on 12/26/2022 by Rolan Beckwith MD at [facility] Implant N/A: Spine Lumbar DEPUY SPINE 12/27/2022 [id number] / / N/A Spacr Tpal Peek [id number] - [id number] Implanted:Qty : 1 on 12/26/2022 by Rolan Beckwith MD at [facility] Implant N/A: Spine Lumbar DEPUY SPINE 12/27/2022 [id number] / / N/A Procedures Procedure Name Priority Date/Time Associated Diagnosis Comments HEMOGLOBIN A1C Routine 12/19/2022 11:44 AM EDT from Last 3 Months or Most Recently Relevant to Health Maintenance Results * (ABNORMAL) Hemoglobin A1c (12/19/2022 11:44 AM EDT) Hemoglobin A1C 6.20(H) 4.80 - 5.60 % 12/19/2022 12:20 PM EDT [facility] Blood Venipuncture / Unknown 12/19/2022 11:44 AM EDT 12/19/2022 11:58 AM EDT Narrative [facility] - 12/19/2022 12:20 PM EDT Hemoglobin A1C Ranges: Increased Risk for Diabetes 5.7% to 6.4% Diabetes >= 6.5% Diabetic Goal < 7.0% us Rolan Beckwith MD LAB BLOOD ORDERABLES Final Res ult [facility]
[address] [place] [address], from Last 3 Months or Most Recently Relevant to Health Maintenance Insurance [facility] DUAL COMPLETE MEDIC Care Teams Strand And Binder Controller Relationship Specialty Start Date End Date Otis Bray MD [address] [facility] [address] [place] [id number] PCP - General Adolescent Medicine 08/19/19
[2025-05-02] MEDS: ferumoxytoL 510 MG in 0.9 % SODIUM CHLORIDE 50 ML 268 MG IV (10:59)
[2025-05-02 11:00] VITALS: BP 129/62; PULSE 73; RESP 16
[2025-05-02 11:15] VITALS: BP 144/69; PULSE 69; RESP 17
== END 2025-05-02 11:30 | disposition home or self-care (01) ==
LOC: INF 10:48
PROVIDERS: PCP Nurse Practitioner Family; Visit Provider Internal Medicine Medical Oncology
DX: D50.0 Iron deficiency anemia secondary to blood loss (chronic) (principal)
CPT/HCPCS: 96374; Q0138

== ENCOUNTER 2025-06-16 08:56 | Outpatient (CLI) | payer MEDICARE, OTHER, SELFPAY ==
--- OUTSIDE RECORDS SUMMARY | 2025-06-16 09:03 | XMS_ITS | Clinical Summary ---
[facility] Address [address] [place] [address] Care Team Providers Care Sample Sawyer Name Role Phone Otis Bray MD Primary Care Provider [phone] Allergies No known active allergies Medications Spiriva [...] Active vitamin D (ERGOCALCIFEROL ) 1.25 MG (02975 UT) capsule capsule TAKE 1 CAPSULE BY [...] Date Last Done Comments Annual Gynecologic Pelvic and Breast Exam 1965 Pneumococcal Vaccine 50+ (1 of 2 - PCV) 1985 TDAP/TD VACCINES (1 - Tdap) 1985 MAMMOGRAM 2006 COLOGUARD 2011 COLON CANCER SCREENING 5 YEAR SIGMOIDOSCOPY 2011 COLONOSCOPY 2011 COLORECTAL CANCER SCREENING 2011 CT COLONOGRAPHY 2011 FECAL OCCULT BLOOD TEST 2011 FIT Testing (1 year) 2011 ZOSTER VACCINE (1 of 2) 02/16/2016 ANNUAL PHYSICAL 12/19/2022 HEPATITIS C SCREENING 12/19/2022 INFLUENZA VACCINE 04/18/2025 HEMOGLOBIN A1C Discontinued 12/19/2022 Medical Devices Implanted Type Area Rag Cutting Machine Tender Device Identifier Shelf Expiration Date Model / Serial / Lot Hemost Abs Surgifoam Sz100 8x12 10mm - [id number] Implanted:Qty : 1 on 12/26/2022 by Rolan Beckwith MD at [facility] Implant N/A: Spine Lumbar ETHICON DIV [employer] J AND J 1974 / / Kt Seal Hemos Abs Floseal Matrx Fast/Prep 10ml - [id number] Implanted:Qty : 1 on 12/26/2022 by Rolan Beckwith MD at [facility] Implant N/A: Spine Lumbar [facility] 10/19/2024 [id number] / / [id number] Allogr Bone Vivigen Celluar Matrx Formable 5cc - [id number] Implanted:Qty : 1 on 12/26/2022 by Rolan Beckwith MD at [facility] Implant N/A: Spine Lumbar [facility] 09/28/2023 [id number] / / [id number] Scrw Expedium Pa Ti 7x45mm - [id number] Implanted:Qty : 1 on 12/26/2022 by Rolan Beckwith MD at [facility] Implant N/A: Spine Lumbar DEPUY SPINE 12/27/2022 [id number] / / N/A Scrw Expedium Pa Ti 6x50mm - [id number] Implanted:Qty : 2 on 12/26/2022 by Rolan Beckwith MD at [facility] Implant N/A: Spine Lumbar DEPUY SPINE 12/27/2022 [id number] / / N/A Scrw Expedium Pa Ti 7x40mm - [id number] Implanted:Qty : 1 on 12/26/2022 by Rolan Beckwith MD at [facility] Implant N/A: Spine Lumbar DEPUY SPINE 12/27/2022 [id number] / / N/A Ulysses Prebnt Spine Expedium Ti 5.5x40mm - [id number] Implanted:Qty : 2 on 12/26/2022 by Rolan Beckwith MD at [facility] Implant N/A: Spine Lumbar DEPUY SPINE 12/27/2022 [id number] / / N/A Scrw Viper [address] - [id number] Implanted:Qty : 4 on 12/26/2022 by Rolan Beckwith MD at [facility] Implant N/A: Spine Lumbar DEPUY SPINE 12/27/2022 [id number] / / N/A Spacr Tpal Peek [id number] - [id number] Implanted:Qty : 1 on 12/26/2022 by Rolan Beckwith MD at [facility] Implant N/A: Spine Lumbar DEPUY SPINE 12/27/2022 [id number] / / N/A Procedures Procedure Name Priority Date/Time Associated Diagnosis Comments HEMOGLOBIN A1C Routine 12/19/2022 11:44 AM EDT from Last 3 Months or Most Recently Relevant to Health Maintenance Results * (ABNORMAL) Hemoglobin A1c (12/19/2022 11:44 AM EDT) Hemoglobin A1C 6.20(H) 4.80 - 5.60 % 12/19/2022 12:20 PM EDT [facility] Blood Venipuncture / Unknown 12/19/2022 11:44 AM EDT 12/19/2022 11:58 AM EDT Narrative [facility] - 12/19/2022 12:20 PM EDT Hemoglobin A1C Ranges: Increased Risk for Diabetes 5.7% to 6.4% Diabetes >= 6.5% Diabetic Goal < 7.0% us Rolan Beckwith MD LAB BLOOD ORDERABLES Final Res ult [facility]
[address] [place] [address], from Last 3 Months or Most Recently Relevant to Health Maintenance Insurance [facility] DUAL COMPLETE MEDIC Care Teams Sample Sawyer Relationship Specialty Start Date End Date Otis Bray MD [address] [place] [address] PCP - General Adolescent Medicine 08/19/19
--- OUTSIDE RECORDS SUMMARY | 2025-06-16 09:03 | XMS_ITS | Clinical Summary ---
Author Organization Healthcare Address [address] [place] [address] Care Team Providers Care Hr Systems Analyst Name Role Phone Unavailable Primary Care Provider [...] 02/16/2016 UKY-Zoster Vaccines (1 of 2) 02/16/2016 [id number] Vaccine (1 - 20 24-25 season) 2025 UKY-Influenza Vaccine (#1) 2025 HPV Vaccines Aged [...]
[2025-06-16 09:59] LABS: Hematocrit 38.5 % (37.0-47.0); Hemoglobin 11.8 g/dL (12.2-16.2); Immature Granulocytes % 0.5 %; Mean Corpuscular HGB Conc 30.6 g/dL (31.8-35.4); Mean Corpuscular Hemoglobin 23.6 pg (27.0-31.2); Mean Corpuscular Volume 76.8 fl (81-99); Nucleated Red Blood Cells % 0 %; Platelet Count 336 K/mm3 (142-424); Red Blood Count 5.01 M/mm3 (4.20-5.40); Red Cell Distribution Width-SD 71.6 fL; White Blood Count 9.6 K/mm3 (4.8-10.8)
[2025-06-16 10:24] LABS: Iron 45 ug/dL (37-170)
[2025-06-16 10:34] LABS: Total Iron Binding Capacity 336 ug/dL (265-497)
[2025-06-16 10:59] LABS: Ferritin 53.5 ng/ml (11.1-264)
== END 2025-06-16 23:59 | disposition home or self-care (01) ==
LOC: LAB 08:57
PROVIDERS: PCP Nurse Practitioner Family; Visit Provider Internal Medicine Medical Oncology
DX: D50.0 Iron deficiency anemia secondary to blood loss (chronic) (principal)
CPT/HCPCS: 36415; 82728; 83540; 83550; 85025

== ENCOUNTER 2025-06-17 13:24 | Outpatient (CLI) | payer MEDICARE, OTHER, SELFPAY ==
--- OUTSIDE RECORDS SUMMARY | 2025-06-17 13:35 | XMS_ITS | Clinical Summary ---
Author Organization Healthcare Address [address] [place] [address] Care Team Providers Care Animal Daycare Provider Name Role Phone Unavailable Primary Care Provider [...] 02/16/2016 UKY-Zoster Vaccines (1 of 2) 02/16/2016 [id number] Vaccine (1 - 20 24-25 season) 2025 [...]
--- OUTSIDE RECORDS SUMMARY | 2025-06-17 13:35 | XMS_ITS | Clinical Summary ---
[facility] Address [address] [place] [address] Care Team Providers Care Bdr Name Role Phone Otis Bray MD Primary Care Provider [phone] Allergies No known active allergies Medications Spiriva [...] Active vitamin D (ERGOCALCIFEROL ) 1.25 MG (88826 UT) capsule capsule TAKE 1 CAPSULE BY [...] Discontinued 12/19/2022 Medical Devices Implanted Type Area Temperature Inspector Device Identifier Shelf Expiration Date Model / Serial / Lot Hemost Abs Surgifoam Sz100 8x12 10mm - [id number] Implanted:Qty : 1 on 12/26/2022 by Rolan Beckwith MD at [facility] Implant N/A: Spine Lumbar ETHICON DIV OF J AND J 1974 / / Kt Seal Hemos Abs Floseal Matrx Fast/Prep 10ml - [id number] Implanted:Qty : 1 on 12/26/2022 by Rolan Beckwith MD at [facility] Implant N/A: Spine Lumbar [facility] 10/19/2024 [id number] / / [id number] Allogr Bone Vivigen Celluar Matrx Formable 5cc - [id number] Implanted:Qty : 1 on 12/26/2022 by Rolan Beckwith MD at [facility] Implant N/A: Spine Lumbar [facility] 09/28/2023 [id number] / / [id number] Scrw Expedium Pa Ti 7x45mm - [id number] Implanted:Qty : 1 on 12/26/2022 by Rolan Beckwith MD at [facility] Implant N/A: Spine Lumbar DEPUY SPINE 12/27/2022 [id number] / / N/A Scrw Expedium Pa Ti 6x50mm - [id number] Implanted:Qty : 2 on 12/26/2022 by Rolan Beckwith MD at [facility] Implant N/A: Spine Lumbar DEPUY SPINE 12/27/2022 [id number] / / N/A Scrw Expedium Pa Ti 7x40mm - [id number] Implanted:Qty : 1 on 12/26/2022 by Rolan Beckwith MD at [facility] Implant N/A: Spine Lumbar DEPUY SPINE 12/27/2022 [id number] / / N/A Ulysses Prebnt Spine Expedium Ti 5.5x40mm - [id number] Implanted:Qty : 2 on 12/26/2022 by Rolan Beckwith MD at [facility] Implant N/A: Spine Lumbar DEPUY SPINE 12/27/2022 [id number] / / N/A Scrw Viper [address] - [id number] Implanted:Qty : 4 on 12/26/2022 by Rolan Beckwith MD at [facility] Implant N/A: Spine Lumbar DEPUY SPINE 12/27/2022 [id number] / / N/A Spacr Tpal Peek 51w19q54at - [id number] Implanted:Qty : 1 on 12/26/2022 by Rolan Beckwith MD at [facility] Implant N/A: Spine Lumbar DEPUY SPINE 12/27/2022 [id number] / / N/A Procedures Procedure Name Priority Date/Time Associated Diagnosis Comments HEMOGLOBIN A1C Routine 12/19/2022 11:44 AM EDT from Last 3 Months or Most Recently Relevant to Health Maintenance Results * (ABNORMAL) Hemoglobin A1c (12/19/2022 11:44 AM EDT) Hemoglobin A1C 6.20(H) 4.80 - 5.60 % 12/19/2022 12:20 PM EDT [facility] Blood Venipuncture / Unknown 12/19/2022 11:44 AM EDT 12/19/2022 11:58 AM EDT Narrative [facility] - 12/19/2022 12:20 PM EDT Hemoglobin A1C Ranges: Increased Risk for Diabetes 5.7% to 6.4% Diabetes >= 6.5% Diabetic Goal < 7.0% us Rolan Beckwith MD LAB BLOOD ORDERABLES Final Res ult [facility]
[address] [place] [address], from Last 3 Months or Most Recently Relevant to Health Maintenance Insurance [facility] DUAL COMPLETE MEDIC Care Teams Bdr Relationship Specialty Start Date End Date Otis Bray MD [address] [place] [address] PCP - General Adolescent Medicine 08/19/19
[2025-06-17 13:55] LABS: Hematocrit 38.0 % (37.0-47.0); Hemoglobin 12.2 g/dL (12.2-16.2); Immature Granulocytes % 0.5 %; Mean Corpuscular HGB Conc 32.1 g/dL (31.8-35.4); Mean Corpuscular Hemoglobin 24.3 pg (27.0-31.2); Mean Corpuscular Volume 75.5 fl (81-99); Nucleated Red Blood Cells % 0 %; Platelet Count 354 K/mm3 (142-424); Red Blood Count 5.03 M/mm3 (4.20-5.40); Red Cell Distribution Width-SD 69.3 fL; White Blood Count 10.4 K/mm3 (4.8-10.8)
[2025-06-17 14:23] LABS: Alanine Aminotransferase 26 U/L (12-78); Albumin Level 4.0 g/dl (3.5-5.0); Albumin/Globulin Ratio 1.8 (1.1-1.8); Alkaline Phosphatase 146 U/L (38-126); Anion Gap 12.8 mEq/L (5-15); Aspartate Amino Transferase 22 U/L (14-36); Bilirubin,Total 0.4 mg/dl (0.2-1.3); Blood Urea Nitrogen 10 mg/dl (7-17); Calcium 9.1 mg/dl (8.4-10.2); Carbon Dioxide 28 mmol/L (22.0-30.0); Chloride 102 mmol/L (98-107); Creatinine,Serum 0.60 mg/dl (0.52-1.04); Estimated Glomerular Filt Rate 102 ml/min (>60); GFR (African American) 124 ML/MIN (>60); Globulin 2.2 g/dL (1.3-3.2); Glucose 84 mg/dl (74-100); Magnesium 1.5 mg/dl (1.6-2.3); Potassium 4.8 mmoL/L (3.5-5.1); Sodium 138 mmol/L (136-145); Total Protein,Serum 6.2 g/dl (6.3-8.2)
[2025-06-17 15:07] LABS: Iron 44 ug/dL (37-170)
[2025-06-17 15:16] LABS: Total Iron Binding Capacity 343 ug/dL (265-497)
[2025-06-17 15:44] LABS: Ferritin 62.4 ng/ml (11.1-264)
== END 2025-06-17 23:59 | disposition home or self-care (01) ==
LOC: LAB 13:25
PROVIDERS: PCP Nurse Practitioner Family; Visit Provider Internal Medicine Medical Oncology
DX: D50.0 Iron deficiency anemia secondary to blood loss (chronic) (principal)
CPT/HCPCS: 36415; 80053; 82728; 83540; 83550; 83735; 85025

== ENCOUNTER 2025-06-25 10:44 | Outpatient (CLI) | payer MEDICARE, OTHER, SELFPAY ==
[2025-06-25 10:52] VITALS: BP 147/71; PULSE 74; RESP 18; TEMP 36.3; O2SAT 97; BMI 27.4
[2025-06-25] MEDS: ferumoxytoL 510 MG in 0.9 % SODIUM CHLORIDE 50 ML 268 MG IV (10:57)
[2025-06-25] MEDS: SODIUM CHLORIDE 0.9% 10ML FLUSH SYRINGE 10 ML IV (11:00)
[2025-06-25 11:25] VITALS: BP 155/77; PULSE 71; RESP 16; O2SAT 98
== END 2025-06-25 11:30 | disposition home or self-care (01) ==
LOC: INF 10:47
PROVIDERS: PCP Nurse Practitioner Family; Visit Provider Internal Medicine Medical Oncology
DX: D50.0 Iron deficiency anemia secondary to blood loss (chronic) (principal)
CPT/HCPCS: 96365; Q0138

== ENCOUNTER 2025-07-02 10:02 | Outpatient (CLI) | payer MEDICARE, OTHER, SELFPAY ==
--- OUTSIDE RECORDS SUMMARY | 2025-07-02 10:12 | XMS_ITS | Clinical Summary ---
Author Organization Healthcare Address [address] [place] [address] Care Team Providers Care Database Management System Specialist Name Role Phone Unavailable Primary Care Provider [...] Date Last Done Comments UKY-Depression Screening 1965 UKY-/Child/Adol SDOH Screenings 1965 UKY- SDOH Screenings 02/16/1984 [...] 02/16/2016 UKY-Zoster Vaccines (1 of 2) 02/16/2016 [id number] Vaccine (1 - 20 24-25 season) 2025 [...]
--- OUTSIDE RECORDS SUMMARY | 2025-07-02 10:12 | XMS_ITS | Clinical Summary ---
[facility] Address [address] [place] [address] Care Team Providers Care Tankerman Name Role Phone Otis Bray MD Primary Care Provider [phone] Allergies No known active allergies Medications Spiriva [...] Active vitamin D (ERGOCALCIFEROL ) 1.25 MG (90159 UT) capsule capsule TAKE 1 CAPSULE BY [...] Discontinued 12/19/2022 Medical Devices Implanted Type Area Equipment Cleaner And Tester Device Identifier Shelf Expiration Date Model / Serial / Lot Hemost Abs Surgifoam Sz100 8x12 10mm - [id number] Implanted:Qty : 1 on 12/26/2022 by Rolan Beckwith MD at [facility] Implant N/A: Spine Lumbar ETHICON DIV OF J AND J 1974 / / Kt Seal Hemos Abs Floseal Matrx Fast/Prep 10ml - [id number] Implanted:Qty : 1 on 12/26/2022 by Rolan Beckwith MD at [facility] Implant N/A: Spine Lumbar [facility] 10/19/2024 [id number] / / [id number] Allogr Bone Vivigen Celluar Matrx Formable 5cc - [id number] Implanted:Qty : 1 on 12/26/2022 by Rolan Beckwith MD at [facility] Implant N/A: Spine Lumbar [facility] 09/28/2023 [id number] / / [id number] Scrw Expedium Pa Ti 7x45mm - [id number] Implanted:Qty : 1 on 12/26/2022 by Rolan Beckwith MD at [facility] Implant N/A: Spine Lumbar DEPUY SPINE 12/27/2022 [id number] / / N/A Scrw Expedium Pa Ti 6x50mm - [id number] Implanted:Qty : 2 on 12/26/2022 by Rolan Beckwith MD at [facility] Implant N/A: Spine Lumbar DEPUY SPINE 12/27/2022 [id number] / / N/A Scrw Expedium Pa Ti 7x40mm - [id number] Implanted:Qty : 1 on 12/26/2022 by Rolan Beckwith MD at [facility] Implant N/A: Spine Lumbar DEPUY SPINE 12/27/2022 [id number] / / N/A Ulysses Prebnt Spine Expedium Ti 5.5x40mm - [id number] Implanted:Qty : 2 on 12/26/2022 by Rolan Beckwith MD at [facility] Implant N/A: Spine Lumbar DEPUY SPINE 12/27/2022 [id number] / / N/A Scrw Viper [address] - [id number] Implanted:Qty : 4 on 12/26/2022 by Rolan Beckwith MD at [facility] Implant N/A: Spine Lumbar DEPUY SPINE 12/27/2022 [id number] / / N/A Spacr Tpal Peek 45v89k79ow - [id number] Implanted:Qty : 1 on 12/26/2022 by Rolan Beckwith MD at [facility] Implant N/A: Spine Lumbar DEPUY SPINE 12/27/2022 [id number] / / N/A Procedures Procedure Name Priority Date/Time Associated Diagnosis Comments HEMOGLOBIN A1C Routine 12/19/2022 11:44 AM EDT from Last 3 Months or Most Recently Relevant to Health Maintenance Results * (ABNORMAL) Hemoglobin A1c (12/19/2022 11:44 AM EDT) Hemoglobin A1C 6.20(H) 4.80 - 5.60 % 12/19/2022 12:20 PM EDT [facility] Blood Venipuncture / Unknown 12/19/2022 11:44 AM EDT 12/19/2022 11:58 AM EDT Narrative [facility] - 12/19/2022 12:20 PM EDT Hemoglobin A1C Ranges: Increased Risk for Diabetes 5.7% to 6.4% Diabetes >= 6.5% Diabetic Goal < 7.0% us Rolan Beckwith MD LAB BLOOD ORDERABLES Final Res ult [facility]
[address] [place] [address], from Last 3 Months or Most Recently Relevant to Health Maintenance Insurance [facility] DUAL COMPLETE MEDIC Care Teams Tankerman Relationship Specialty Start Date End Date Otis Bray MD [address] [place] [address] PCP - General Adolescent Medicine 08/19/19
[2025-07-02 10:47] VITALS: BP 140/76; PULSE 74
[2025-07-02] MEDS: ferumoxytoL 510 MG in 0.9 % SODIUM CHLORIDE 50 ML 268 MG IV (10:47)
[2025-07-02 11:05] VITALS: BP 111/62; PULSE 71
[2025-07-02] MEDS: SODIUM CHLORIDE 0.9% 10ML FLUSH SYRINGE 10 ML IV (11:25)
== END 2025-07-02 23:59 | disposition home or self-care (01) ==
LOC: INF 10:03
PROVIDERS: PCP Nurse Practitioner Family; Visit Provider Internal Medicine Medical Oncology
DX: D50.0 Iron deficiency anemia secondary to blood loss (chronic) (principal)
CPT/HCPCS: 96374; Q0138

== ENCOUNTER 2025-07-18 09:00 | Outpatient (RCR) | payer MEDICARE, OTHER, SELFPAY | END 2025-07-18 23:59 | disposition home or self-care (01) | LOC: PT 09:00 | PROVIDERS: PCP Nurse Practitioner Family; Visit Provider Orthopaedic Surgery Adult Reconstructive Orthopaedic Surgery | DX: M17.11 Unilateral primary osteoarthritis, right knee (principal); M70.72 Other bursitis of hip, left hip; M70.71 Other bursitis of hip, right hip | CPT/HCPCS: 97014; 97110; 97163; G0283 ==

== ENCOUNTER 2025-07-25 11:00 | Outpatient (RCR) | payer MEDICARE, OTHER, SELFPAY | END 2025-07-25 23:59 | disposition home or self-care (01) | LOC: PT 11:00 | PROVIDERS: PCP Nurse Practitioner Family; Visit Provider Orthopaedic Surgery Adult Reconstructive Orthopaedic Surgery | DX: M17.11 Unilateral primary osteoarthritis, right knee (principal); M70.72 Other bursitis of hip, left hip; M70.71 Other bursitis of hip, right hip | CPT/HCPCS: 97035; 97110 ==

== ENCOUNTER 2025-08-11 14:59 | Outpatient (CLI) | payer MEDICARE, OTHER, SELFPAY ==
--- OUTSIDE RECORDS SUMMARY | 2025-08-11 15:03 | XMS_ITS | Clinical Summary ---
[facility] Address [address] [place] [address] Care Team Providers Care Supervisor Park Workers Name Role Phone Otis Bray MD Primary Care Provider [phone] Allergies No known active allergies Medications Spiriva [...] Active vitamin D (ERGOCALCIFEROL ) 1.25 MG (34745 UT) capsule capsule TAKE 1 CAPSULE BY [...] Discontinued 12/19/2022 Medical Devices Implanted Type Area Furniture Dipper Device Identifier Shelf Expiration Date Model / Serial / Lot Hemost Abs Surgifoam Sz100 8x12 10mm - [id number] Implanted:Qty : 1 on 12/26/2022 by Rolan Beckwith MD at [facility] Implant N/A: Spine Lumbar ETHICON DIV OF J AND J 1974 / / Kt Seal Hemos Abs Floseal Matrx Fast/Prep 10ml - [id number] Implanted:Qty : 1 on 12/26/2022 by Rolan Beckwith MD at [facility] Implant N/A: Spine Lumbar [facility] 10/19/2024 [id number] / / [id number] Allogr Bone Vivigen Celluar Matrx Formable 5cc - [id number] Implanted:Qty : 1 on 12/26/2022 by Rolan Beckwith MD at [facility] Implant N/A: Spine Lumbar [facility] 09/28/2023 [id number] / / [id number] Scrw Expedium Pa Ti 7x45mm - [id number] Implanted:Qty : 1 on 12/26/2022 by Rolan Beckwith MD at [facility] Implant N/A: Spine Lumbar DEPUY SPINE 12/27/2022 [id number] / / N/A Scrw Expedium Pa Ti 6x50mm - [id number] Implanted:Qty : 2 on 12/26/2022 by Rolan Beckwith MD at [facility] Implant N/A: Spine Lumbar DEPUY SPINE 12/27/2022 [id number] / / N/A Scrw Expedium Pa Ti 7x40mm - [id number] Implanted:Qty : 1 on 12/26/2022 by Rolan Beckwith MD at [facility] Implant N/A: Spine Lumbar DEPUY SPINE 12/27/2022 [id number] / / N/A Ulysses Prebnt Spine Expedium Ti 5.5x40mm - [id number] Implanted:Qty : 2 on 12/26/2022 by Rolan Beckwith MD at [facility] Implant N/A: Spine Lumbar DEPUY SPINE 12/27/2022 [id number] / / N/A Scrw Viper [address] - [id number] Implanted:Qty : 4 on 12/26/2022 by Rolan Beckwith MD at [facility] Implant N/A: Spine Lumbar DEPUY SPINE 12/27/2022 [id number] / / N/A Spacr Tpal Peek 66g71x70cn - [id number] Implanted:Qty : 1 on 12/26/2022 by Rolan Beckwith MD at [facility] Implant N/A: Spine Lumbar DEPUY SPINE 12/27/2022 [id number] / / N/A Procedures Procedure Name Priority Date/Time Associated Diagnosis Comments HEMOGLOBIN A1C Routine 12/19/2022 11:44 AM EDT from Last 3 Months or Most Recently Relevant to Health Maintenance Results * (ABNORMAL) Hemoglobin A1c (12/19/2022 11:44 AM EDT) Hemoglobin A1C 6.20(H) 4.80 - 5.60 % 12/19/2022 12:20 PM EDT [facility] Blood Venipuncture / Unknown 12/19/2022 11:44 AM EDT 12/19/2022 11:58 AM EDT Narrative [facility] - 12/19/2022 12:20 PM EDT Hemoglobin A1C Ranges: Increased Risk for Diabetes 5.7% to 6.4% Diabetes >= 6.5% Diabetic Goal < 7.0% us Rolan Beckwith MD LAB BLOOD ORDERABLES Final Res ult [facility]
[address] [place] [address], from Last 3 Months or Most Recently Relevant to Health Maintenance Insurance [facility] DUAL COMPLETE MEDIC Care Teams Supervisor Park Workers Relationship Specialty Start Date End Date Otis Bray MD [address] [place] [address] PCP - General Adolescent Medicine 08/19/19
--- OUTSIDE RECORDS SUMMARY | 2025-08-11 15:03 | XMS_ITS | Clinical Summary ---
Author Organization Healthcare Address [address] [place] [address] Care Team Providers Care Photographic Specialist Name Role Phone Unavailable Primary Care [...] 02/16/2016 UKY-Zoster Vaccines (1 of 2) 02/16/2016 [id number] Vaccine (1 - 20 25- season) 2025 UKY-Influenza Vaccine (#1) 2025 HPV [...]
[2025-08-11 16:41] LABS: Hematocrit 37.3 % (37.0-47.0); Hemoglobin 12.6 g/dL (12.2-16.2); Immature Granulocytes % 0.2 %; Mean Corpuscular HGB Conc 33.8 g/dL (31.8-35.4); Mean Corpuscular Hemoglobin 29.5 pg (27.0-31.2); Mean Corpuscular Volume 87.4 fl (81-99); Nucleated Red Blood Cells % 0 %; Platelet Count 240 K/mm3 (142-424); Red Blood Count 4.27 M/mm3 (4.20-5.40); Red Cell Distribution Width-SD 52.8 fL; White Blood Count 5.1 K/mm3 (4.8-10.8)
[2025-08-11 16:49] LABS: Chloride 99 mmol/L (98-107)
[2025-08-11 16:50] LABS: Albumin Level 4.0 g/dl (3.5-5.0); Potassium 4.0 mmoL/L (3.5-5.1); Sodium 136 mmol/L (136-145)
[2025-08-11 16:53] LABS: Alanine Aminotransferase 30 U/L (12-78); Albumin/Globulin Ratio 1.7 (1.1-1.8); Alkaline Phosphatase 100 U/L (38-126); Anion Gap 13.0 mEq/L (5-15); Aspartate Amino Transferase 32 U/L (14-36); Bilirubin,Total 0.2 mg/dl (0.2-1.3); Blood Urea Nitrogen 11 mg/dl (7-17); Calcium 8.8 mg/dl (8.4-10.2); Carbon Dioxide 28 mmol/L (22.0-30.0); Creatinine,Serum 0.70 mg/dl (0.52-1.04); Estimated Glomerular Filt Rate 86 ml/min (>60); GFR (African American) 104 ML/MIN (>60); Globulin 2.4 g/dL (1.3-3.2); Glucose 90 mg/dl (74-100); Iron 40 ug/dL (37-170); Total Protein,Serum 6.4 g/dl (6.3-8.2)
[2025-08-11 17:04] LABS: Total Iron Binding Capacity 302 ug/dL (265-497)
[2025-08-11 17:27] LABS: Ferritin 284 ng/ml (11.1-264)
== END 2025-08-11 23:59 | disposition home or self-care (01) ==
PROVIDERS: PCP Nurse Practitioner Family; Visit Provider Internal Medicine Medical Oncology
DX: D50.0 Iron deficiency anemia secondary to blood loss (chronic) (principal)
CPT/HCPCS: 36415; 80053; 82728; 83540; 83550; 85025

== ENCOUNTER 2025-08-12 14:32 | Outpatient (CLI) | payer MEDICARE, OTHER, SELFPAY ==
--- OUTSIDE RECORDS SUMMARY | 2025-08-12 14:41 | XMS_ITS | Clinical Summary ---
Author Organization Healthcare Address [address] [place] [address] Care Team Providers Care Axminster Rug Setter Name Role Phone Unavailable Primary Care Provider [...] 02/16/2016 UKY-Zoster Vaccines (1 of 2) 02/16/2016 [id number] Vaccine (1 - 20 25- season) 2025 [...]
--- OUTSIDE RECORDS SUMMARY | 2025-08-12 14:41 | XMS_ITS ---
Care Plan - [facility], [facility] Created on: August 12, 2025 Socorro Sawyer : 1965 Sex: Female Author Organization [facility] Address [address] [place] [address] Phone Care Team Providers Care Java Groovy Developer Name Role Phone Stephenie Oakes APRN Primary Care Provid er Unavailable Darshan MAYORGA, Blanco Vaca Unavailable [phone]
--- OUTSIDE RECORDS SUMMARY | 2025-08-12 14:41 | XMS_ITS ---
Author Organization [facility] Address [address] [place] [address] Phone Care Team Providers Care Home Health Clinical Liaison Name Role Phone Stephenie Oakes APRN Primary Care Provid er Unavailable Darshan MAYORGA, Blanco Vaca Unavailable [phone] Plan of Treatment No Plan of Treatment Recorded Assessments Includes: Assessments for all patient encounters No Assessments Recorded Medical Equipment - Implanted Devices Includes: Current and historical Devices No Medical Equipment Recorded Medications Administered Includes: Administered Medications in patient's chart No Administered Medications Recorded Results Includes: Results from 08/12/2024 through 08/12/2025 No Results Recorded For Specified Dates History of Present Illness History of Present Illness not supported for this document type No History of Present Illness Recorded Social History No Social History Recorded - Smoking Status Unknown Medical History Includes: Medical History in patient's chart No Medical History Recorded Family History Includes: Family History in patient's chart No Family History Recorded Review of Systems Review of Systems not supported for this document type No Review of Systems Recorded Mental Status No Mental Status Recorded Functional Status No Functional Status Recorded Physical Exam Physical Exam not supported for this document type No Physical Exam Recorded Insurance Includes: Active Insurance Policies Plan Name Member ID Group # Subscriber Relationship Effect ray Dates 1 - [employer]/MEDICAR E [id number] Socorro Darden 2 - BS Medicaid [id number] Socorro Darden Clinical Notes Includes: Signed Clinical Notes starting from 09/01/2022 No Clinical Notes Recorded
--- OUTSIDE RECORDS SUMMARY | 2025-08-12 14:41 | XMS_ITS | Clinical Summary ---
[facility] [address] [place] [address] Care Team Providers Care Entry Level Management Name Role Phone Otis Bray MD Primary Care Provider [phone] Allergies No known active allergies Medications Spiriva [...] Active vitamin D (ERGOCALCIFEROL ) 1.25 MG (45040 UT) capsule capsule TAKE 1 CAPSULE BY [...] Discontinued 12/19/2022 Medical Devices Implanted Type Area Pest Management Supervisor Device Identifier Shelf Expiration Date Model / Serial / Lot Hemost Abs Surgifoam Sz100 8x12 10mm - [id number] Implanted:Qty : 1 on 12/26/2022 by Rolan Beckwith MD at [facility] Implant N/A: Spine Lumbar ETHICON DIV OF J AND J 1974 / / Kt Seal Hemos Abs Floseal Matrx Fast/Prep 10ml - [id number] Implanted:Qty : 1 on 12/26/2022 by Rolan Beckwith MD at [facility] Implant N/A: Spine Lumbar [facility] 10/19/2024 [id number] / / [id number] Allogr Bone Vivigen Celluar Matrx Formable 5cc - [id number] Implanted:Qty : 1 on 12/26/2022 by Rolan Beckwith MD at [facility] Implant N/A: Spine Lumbar [facility] 09/28/2023 [id number] / / [id number] Scrw Expedium Pa Ti 7x45mm - [id number] Implanted:Qty : 1 on 12/26/2022 by Rolan Beckwith MD at [facility] Implant N/A: Spine Lumbar DEPUY SPINE 12/27/2022 [id number] / / N/A Scrw Expedium Pa Ti 6x50mm - [id number] Implanted:Qty : 2 on 12/26/2022 by Rolan Beckwith MD at [facility] Implant N/A: Spine Lumbar DEPUY SPINE 12/27/2022 [id number] / / N/A Scrw Expedium Pa Ti 7x40mm - [id number] Implanted:Qty : 1 on 12/26/2022 by Rolan Beckwith MD at [facility] Implant N/A: Spine Lumbar DEPUY SPINE 12/27/2022 [id number] / / N/A Ulysses Prebnt Spine Expedium Ti 5.5x40mm - [id number] Implanted:Qty : 2 on 12/26/2022 by Rolan Beckwith MD at [facility] Implant N/A: Spine Lumbar DEPUY SPINE 12/27/2022 [id number] / / N/A Scrw Viper [address] - [id number] Implanted:Qty : 4 on 12/26/2022 by Rolan Beckwith MD at [facility] Implant N/A: Spine Lumbar DEPUY SPINE 12/27/2022 [id number] / / N/A Spacr Tpal Peek [id number] - [id number] Implanted:Qty : 1 on 12/26/2022 by Rolan Beckwith MD at [facility] Implant N/A: Spine Lumbar DEPUY SPINE 12/27/2022 [id number] / / N/A Procedures Procedure Name Priority Date/Time Associated Diagnosis Comments HEMOGLOBIN A1C Routine 12/19/2022 11:44 AM EDT from Last 3 Months or Most Recently Relevant to Health Maintenance Results * (ABNORMAL) Hemoglobin A1c (12/19/2022 11:44 AM EDT) Hemoglobin A1C 6.20(H) 4.80 - 5.60 % 12/19/2022 12:20 PM EDT [facility] Blood Venipuncture / Unknown 12/19/2022 11:44 AM EDT 12/19/2022 11:58 AM EDT Narrative [facility] - 12/19/2022 12:20 PM EDT Hemoglobin A1C Ranges: Increased Risk for Diabetes 5.7% to 6.4% Diabetes >= 6.5% Diabetic Goal < 7.0% us Rolan Beckwith MD LAB BLOOD ORDERABLES Final Res ult [facility]
[address] [place] [address], from Last 3 Months or Most Recently Relevant to Health Maintenance Insurance [facility] DUAL COMPLETE MEDIC Care Teams Entry Level Management Relationship Specialty Start Date End Date Otis Bray MD [address] [place] [address] PCP - General Adolescent Medicine 08/19/19
[2025-08-12 15:59] LABS: Magnesium 1.4 mg/dl (1.6-2.3)
== END 2025-08-12 23:59 | disposition home or self-care (01) ==
LOC: LAB 14:32
PROVIDERS: PCP Nurse Practitioner Family; Visit Provider Internal Medicine Medical Oncology
DX: D50.0 Iron deficiency anemia secondary to blood loss (chronic) (principal)
CPT/HCPCS: 83735

== ENCOUNTER 2025-09-11 19:11 | Emergency (ER) | payer MEDICARE, OTHER, SELFPAY ==
--- OUTSIDE RECORDS SUMMARY | 2025-08-25 05:58 | XMS_ITS | Continuity of Care Document ---
Author Organization [facility] Phone Care Team Providers Care Hand Edger Name Role Phone EKTA BRIAN Unavailable EKTA BRIAN Surgeon LUKE VERDUGO Primary Care EKTA BRIAN Admitting EKTA BRIAN Primary Attending DAT WILSON Surgeon [phone] ALLERGIES AND ADVERSE REACTIONS ALLERGIES AND ADVERSE REACTIONS Code System Allergy Substance Adverse Reaction Date Reaction (Severity) Comment Status Reported By Updated By No Known Allergies [id number] on August 20, 2025 3:46:12 PM UT ASSESSMENTS Pre-surgery evaluation ; Arthritis of right knee joint ; PROBLEMS PATIENT PROBLEMS Code Description/Comments Category Status Upda nelly By [id number] Pre-surgery evaluation active TY [id number] on August 14, 2025 1:23:50 PM UTC [id number] Arthritis of right knee joint active [id number] on August 21, 2025 12:20:15 PM UTC RESULTS Patient: DOT PINEDA Date of : 1965 9 LABORATORY RESULTS ORDER 300: CBC AUTO W DIFF ( LOINC: 23806-7) ORDER DATE: August 18, 2025 4:33:00 PM UTC Specimen Source: Whole Blood Specimen Type: Whole blood s ample PERFORMING LAB: [address] [id number] Result Comment: Final Result Date: August 18, 2025 4:47:00 PM UTC (TECH: MRB) LOINC TEST FLAG RESULT REFERENCE RANGE UPDA NELLY BY 6690-2 Leukocytes [#/volume] in Blood by Automated count H 12.1 10^3/uL 4.5 10^3/uL - 11.5 10^3/uL August 18, 2025 4:47:00 PM UTC (TECH: MRB) 789-8 Erythrocytes [#/volume] in Blood by Automated count N 4.83 10^6/uL 4.25 10^6/uL - 5.57 10^6/uL August 18, 2025 4:47:00 PM UTC (TECH: MRB) 718-7 Hemoglobin [Mass/volume] in Blood N 13.6 g/dL 12.0 g/dL - 15.7 g/dL August 18, 2025 4:47:00 PM UTC (TECH: MRB) 89801-7 Hematocrit [Volume Fraction] of Blood N 39.3 % 36.0 % - 47.0 % August 18, 2025 4:47:00 PM UTC (TECH: MRB) 787-2 Erythrocyte mean corpuscular volume [Entitic volume] by Automated count N 81.4 fl 80 fl - 95 fl August 18, 2025 4:47:00 PM UTC (TECH: CurrentlyB) 40363-0 Erythrocyte mean corpuscular hemoglobin [Entitic mass] in Blood from [place] by Automated count N 28.2 pg 27.0 pg - 34.0 pg August 18, 2025 4:47:00 PM UTC (TECH: MRB) 15023-8 Erythrocyte mean corpuscular hemoglobin concentration [Mass/volume] in Blood from Fetus by Automated count N 34.6 g/dL 32.0 g/dL - 36.0 g/dL August 18, 2025 4:47:00 PM UTC (TECH: MRB) 32541-4 Platelets [#/volume] in Blood N 323 10^3/uL 150 10^3/uL - 450 10^3/uL August 18, 2025 4:47:00 PM UTC (TECH: MRB) 92857-2 Erythrocyte distribution width [Ratio] H 16.6 % 12.3 % - 15.1 % August 18, 2025 4:47:00 PM UTC (TECH: MRB) 48958-7 Platelet mean volume [Entitic volume] in Blood by Automated count N 9.8 fl 7.4 fl - 10.4 fl August 18, 2025 4:47:00 PM UTC (TECH: MRB) 68591-4 Granulocytes/100 leukocytes in Blood by Automated count N 69.5 % 40 % - 75 % August 18, 2025 4:47:00 PM UTC (TECH: MRB) 736-9 Lymphocytes/100 leukocytes in Blood by Automated count N 22.4 % 15 % - 57 % August 18, 2025 4:47:00 PM UTC (TECH: MRB) 5905-5 Monocytes/100 leukocytes in Blood by Automated count L 3.6 % 4.0 % - 12.0 % August 18, 2025 4:47:00 PM UTC (TECH: MRB) 713-8 Eosinophils/100 leukocytes in Blood by Automated count N 3.6 % 0.0 % - 4.0 % August 18, 2025 4:47:00 PM UTC (TECH: MRB) 706-2 Basophils/100 leukocytes in Blood by Automated count N 0.3 % 0.0 % - 1.0 % August 18, 2025 4:47:00 PM UTC (TECH: MRB) 42520-3 Immature granulocytes [#/volume] in Blood N 0.6 % 0.0 % - 0.8 % August 18, 2025 4:47:00 PM UTC (TECH: MRB) 60387-4 Granulocytes [#/volume] in Blood by Automated count N 8.43 10^3/uL August 18, 2025 4:47:00 PM UTC (TECH: MRB) 731-0 Lymphocytes [#/volume] in Blood by Automated count N 2.71 10^3/uL August 18, 2025 4:47:00 PM UTC (TECH: MRB) 742-7 Monocytes [#/volume] in Blood by Automated count N 0.43 10^3/uL August 18, 2025 4:47:00 PM UTC (TECH: MRB) 711-2 Eosinophils [#/volume] in Blood by Automated count N 0.43 10^3/uL August 18, 2025 4:47:00 PM UTC (TECH: MRB) 704-7 Basophils [#/volume] in Blood by Automated count N 0.04 10^3/uL August 18, 2025 4:47:00 PM UTC (TECH: MRB) 75533-7 Immature granulocytes [#/volume] in Blood N 0.07 10^3/uL August 18, 2025 4:47:00 PM UTC (TECH: MRB) 25265-4 Manual differential performed [Presence] in Blood N NO August 18, 2025 4:47:00 PM UTC (TECH: MRB) ORDER 400: PT PROTHROMBIN TI ME W INR (LOINC: 03225-5) ORDER DATE: August 18, 2025 4:33:00 PM UTC Specimen Source: Plasma Specimen Type: Plasma specim en PERFORMING LAB: [place] [id number] Result Comment: Final Result Date: August 18, 2025 5:20:00 PM UTC (TECH: MRB) LOINC TEST [place] [address]-7 INR in Platelet poor plasma or blood by Coagulation assay N 10.1 seconds 9.1 seconds - 12.0 seconds August 18, 2025 5:20:00 PM UTC (TECH: MRB) 6301-6 INR in Platelet poor plasma by Coagulation assay N 0.93 0.9 - 1.1 August 18, 2025 5:20:00 PM UTC (TECH: MRB) ORDER 500: PTT PARTIAL THROM B TIME (LOINC: 02292-4) ORDER DATE: August 18, 2025 4:33:00 PM UTC Specimen Source: Plasma Specimen Type: Plasma specim en PERFORMING LAB: [address] [id number] Result Comment: Final Result Date: August 18, 2025 5:20:00 PM UTC (TECH: MRB) LOINC TEST [place] [address]-4 Activated partial thromboplastin time (aPTT) in Platelet poor plasma by Coagulation assay N 25.1 seconds 24.5 seconds - 32.8 seconds August 18, 2025 5:20:00 PM UTC (TECH: MRB) ORDER 600: HEMOGLOBIN A1C (L OINC: 4548-4) ORDER DATE: August 18, 2025 4:33:00 PM UTC Specimen Source: Whole Blood Specimen Type: Whole blood s ample PERFORMING LAB: [address] [id number] Result Comment: Final Result Date: August 18, 2025 5:16:00 PM UTC (TECH: MRB) LOINC TEST FLAG RESULT REFERENCE RANGE UPDA NELLY BY 4548-4 Hemoglobin A1c/Hemoglobin.tot al in Blood H 6.5 % 4.5 % - 6.2 % August 18, 2025 5:16:00 PM UT (TECH: MRB) 67484-0 Glucose mean value [Mass/volume] in Blood Estimated from glycated hemoglobin H 140 mg/dl 82 mg/dl - 131 mg/dl August 18, 2025 5:16:00 PM UT (TECH: MRB) ORDER 700: COMP METABOLIC PA ALEX (LOINC: 76619-0) ORDER DATE: August 18, 2025 4:33:00 PM UT Specimen Source: Serum/Plasm a Specimen Type: Acellular blo od (serum or plasma) specimen PERFORMING LAB: [address] [id number] Result Comment: Final Result Date: August 18, 2025 4:59:00 PM UT (TECH: MRB) LOINC TEST FLAG RESULT REFERENCE RANGE UPDA NELLY BY 2951-2 Sodium [Moles/volume ] in Serum or Plasma N 138 mmol/L 136 mmol/L - 145 mmol/L August 18, 2025 4:59:00 PM UT (TECH: MRB) 2823-3 Potassium [Moles/vol ume] in Serum or Plasma N 4.1 mmol/L 3.5 mmol/L - 5.1 mmol/L August 18, 2025 4:59:00 PM UT (TECH: MRB) 2075-0 Chloride [Moles/volu me] in Serum or Plasma N 99 mmol/L 98 mmol/L - 107 mmol/L August 18, 2025 4:59:00 PM UTC (TECH: MRB) 8-9 Carbon dioxide, tota l [Moles/volume] in Serum or Plasma N 31 mmol/L 21 mmol/L - 32 mmol/L August 18, 2025 4:59:00 PM UTC (TECH: MRB) 28802-0 Anion gap 3 in Serum or Plasma N 8.0 August 18, 2025 4:59:00 PM UTC (TECH: MRB) 2345-7 Glucose [Mass/volume ] in Serum or Plasma N 94 mg/dL 70 mg/dL - 110 mg/dL August 18, 2025 4:59:00 PM UTC (TECH: MRB) 3094-0 Urea nitrogen [Mass/volume] in Serum or Plasma N 18 mg/dL 7 mg/dL - 18 mg/dL August 18 4:59:00 PM UT (TECH: MRB) 2160-0 Creatinine [Mass/vol ume] in Serum or Plasma N 0.6 mg/dL 0.6 mg/dL - 1.0 mg/dL August 18, 2025 4:59:00 PM UT (TECH: MRB) 3097-3 Urea nitrogen/Creati nine [Mass Ratio] in Serum or Plasma H 30.0 - August 18, 2025 4:59:00 PM [facility] (TECH: MRB) 69724-0 Glomerular filtratio n rate/1.73 sq M.predicted by Creatinine-based formula (MDRD) N 103 mL/min >60 August 18, 2025 4:59:00 PM [facility] (TECH: MRB) 44616-8 Osmolality of Serum or Plasma by calculated by sum of electrolytes N 289 mosm/kg 275 mosm/kg - 301 mosm/kg August 18, 2025 4:59:00 PM [facility] (TECH: MRB) 2885-2 Protein [Mass/volume ] in Serum or Plasma L 6.3 g/dL 6.4 g/dL - 8.2 g/dL August 18, 2025 4:59:00 PM [facility] (TECH: MRB) 1751-7 Albumin [Mass/volume ] in Serum or Plasma N 3.6 g/dL 3.4 g/dL - 5.0 g/dL August 18, 2025 4:59:00 PM UT (TECH: MRB) 56904-1 Calcium [Mass/volume ] in Serum or Plasma N 8.9 mg/dL 8.5 mg/dL - 10.1 mg/dL August 18, 2025 4:59:00 PM UT (TECH: MRB) 11423-0 Calcium [Mass/volume ] corrected for total protein in Serum or Plasma N 9.2 mg/dL 8.5 mg/dL - 10.1 mg/dL August 18, 2025 4:59:00 PM UT (TECH: MRB) 1975-2 Bilirubin.total [Mass/volume] in Serum or Plasma L 0.3 mg/dL 0.4 mg/dL - 1.5 mg/dL August 18, 2025 4:59:00 PM UTC (TECH: MRB) 1920-8 Aspartate aminotransferase [Enzymatic activity/volume] in Serum or Plasma N 20 U/L 15 U/L - 37 U/L August 18, 2025 4:59:00 PM UTC (TECH: MRB) 1742-6 Alanine aminotransfe rase [Enzymatic activity/volume] in Serum or Plasma N 34 U/L 12 U/L - 78 U/L August 18, 2025 4:59:00 PM UTC (TECH: MRB) 6768-6 Alkaline phosphatase [Enzymatic activity/volume] in Serum or Plasma H 139 U/L 37 U/L - 110 U/L August 18 4:59:00 PM UT (TECH: MRB) LABORATORY NARRATIVE RESULTS Information is not available RADIOLOGY RESULTS ORDER 100: CHEST PA AND LAT (LOINC: 11346-9) ORDER DATE: August 18, 2025 4:26:00 PM [facility] PERFORMING LAB: [address] [id number] Final Result Date: August 18, 2025 4:31:58 PM [facility] [address] [place] [address] Name: MIRIAM CHRIS Exam Date: 08/18/2025 : 1965 Age 60 years Gender: F Physician: EKTA BRIAN Facility: [facility] Facility HSV: Outpatient Exam: CHEST PA & LAT XR CHEST 2 VIEWS Reason For Study: preoperative xray COMPARISON:04/07/2020 TECHNIQUE: PA and lateral views of the chest were obtained. FINDINGS PA and lateral views of the chest demonstrate clear lungs. The heart size is normal. The bony thorax is intact. IMPRESSION: No active disease in the chest. Electronically signed by: Yenni Solo MD 08/18/2025 01:50 PM [facility] Dictated By: YENNI SOLO Transcribed By: Transcribed On: 08/18/2025 11:31 AM Electronically signed by: YENNI SOLO 08/18/2025 Thank you for referring MIRIAM CHRIS to [facility]. Legally authenticated by EDIL HYMAN MD 2025-08-18 11:31:58 ORDER 1300: KNEE 2V RT (LOIN C: 22891-8) ORDER DATE: August 21, 2025 3:45:00 PM [facility] PERFORMING LAB: [facility] [address] [facility] [id number] Final Result Date: August 21, 2025 4:12:[address] [place] [address] Name: MIRIAM CHRIS Exam Date: 08/21/2025 : 1965 Age 60 years Gender: F Physician: EKTA BRIAN Facility: [facility] Facility HSV: Outpatient Exam: KNEE 2V RT Left knee 2 views History status post total knee arthroplasty. FINDINGS: Satisfactory alignment total knee arthroplasty. Air within the surrounding soft tissues secondary to recent postoperative state. No knee joint effusion. No acute bony injury. IMPRESSION: Satisfactory alignment total left knee arthroplasty. Electronically signed by: Otis Thompson MD 08/21/2025 11:22 AM [facility] Dictated By: OTIS THOMPSON Transcribed By: Transcribed On: 08/21/2025 11:12 AM Electronically signed by: OTIS THOMPSON 08/21/2025 Thank you for referring MIRIAM CHRIS to [facility]. Legally authenticated by MICHAEL JUAREZ 2025-08-21 11:12:52 PATHOLOGY NARRATIVE RESULTS Information is not available MICROBIOLOGY RESULTS No Micro Labs/Results Exist for Patient BLOOD ADMIN RESULTS Information is not available TREATMENT PLAN DISCHARGE MEDICATIONS Status RXNORM Medication Dose Route Frequency Dates Comments U pdated By Continued [id number] MONTELUKAST SODIUM 10 MG ORAL AT BEDTIME Prescribe d: August 21, 2025 3:46:42 PM [facility] [id number] on August 21, 2025 3:46:42 PM [facility] Continued 842793 Lisinopril-hydro CHLOROthiazide Oral Tablet 20-25 MG 1 TAB ORAL ONCE DAILY Prescribe d: August 21, 2025 3:46:42 PM [facility] [id number] on August 21, 2025 3:46:42 PM [facility] Continued [id number] Tresiba FlexTouch Subcutaneous Solution Pen-injector 100 UNIT/ML 0 Prescribe d: August 21, 2025 3:46:42 PM [facility] [id number] on August 21, 2025 3:46:42 PM [facility] Continued 904837 Levocetirizine Dihydrochloride Oral Tablet 5 MG 5 MG ORAL ONCE DAILY Prescribe d: August 21, 2025 3:46:42 PM [facility] [id number] on August 21, 2025 3:46:42 PM [facility] Continued 0032822 KLOR-CON M20 20 MEQ ORAL ONCE DAILY Prescribe d: August 21, 2025 3:46:42 PM [facility] [id number] on August 21, 2025 3:46:42 PM [facility] Continued trelegy 0 Prescribe d: August 21, 2025 3:46:42 PM [facility] [id number] on August 21, 2025 3:46:42 PM [facility] Continued 840027 Ibuprofen Oral Tablet 800 MG 800 MG ORAL THREE TIMES A DAY NEEDED Prescribe d: August 21, 2025 3:46:42 PM [id number] on August 21, 2025 3:46:42 PM [facility] Continued 427834 metFORMIN (GLUCOPHAGE) 100 MG ORAL ONCE DAILY Prescribe d: August 21, 2025 3:46:42 PM [facility] [id number] on August 21, 2025 3:46:42 PM [facility] Continued 962667 citalopram (CELEXA) 40 MG ORAL ONCE DAILY Prescribe d: August 21, 2025 3:46:42 PM [facility] [id number] on August 21, 2025 3:46:42 PM [facility] Continued 652849 amitriptyline (ELAVIL) 50 MG ORAL ONCE DAILY Prescribe d: August 21, 2025 3:46:42 PM [facility] [id number] on August 21, 2025 3:46:42 PM [facility] Continued 530778 amLODIPine (NORVASC) 5 MG ORAL ONCE DAILY Prescribe d: August 21, 2025 3:46:42 PM [facility] [id number] on August 21, 2025 3:46:42 PM [facility] Continued 621628 Omeprazole Oral Capsule Delayed Release 40 MG 40 MG ORAL ONCE DAILY Prescribe d: August 21, 2025 3:46:42 PM [facility] [id number] on August 21, 2025 3:46:42 PM [facility] Continued 758484 SENNOSIDES-DOCUS ATE SODIUM 8.6-50 MG 1 TAB ORAL ONCE DAILY NEEDED Prescribe d: August 21, 2025 3:46:42 PM [facility] [id number] on August 21, 2025 3:46:42 PM [facility] Continued 134981 aspirin 325 MG ORAL ONCE DAILY Prescribe d: August 21, 2025 3:46:42 PM [facility] [id number] on August 21, 2025 3:46:42 PM [facility] Continued 1542216 PERCOCET 5-325 MG 1 TAB ORAL EVERY FOUR HOURS NEEDED Prescribe d: August 21, 2025 3:46:42 PM [facility] [id number] on August 21, 2025 3:46:42 PM [facility] PATIENT OPEN ORDERS Code System Descriptio n Frequency Occurrenc es Priority Category Start Date Ordering Physician Updated By Patient open order informati on is not available. SCHEDULED PROCEDURES Code System Description Status Scheduled Date Upd ated By Patient scheduled procedure information is not available. MEDICATIONS HOME MEDICATIONS Status [facility] Medication Dose Route Frequency Dates Comments Reported By Updated By Active 503109 39283 94230 5 Ibuprofen Oral Tablet 800 MG 800.0 MG ORAL TIDPRN Last Dose: [id number] on August 21, 2025 12:20:58 PM [facility] Active 654381 93948 48536 1 citalopram (CELEXA) 40.0 MG ORAL DAILY Last Dose: [id number] on August 20, 2025 3:48:08 PM [facility] Active 018425 61201 62674 1 Lisinopril-h ydroCHLOROth iazide Oral Tablet 20-25 MG 1.0 TAB ORAL DAILY Last Dose: [id number] on August 20, 2025 3:48:23 PM [facility] Active 4215855 07396 46727 1 KLOR-CON M20 20.0 MEQ ORAL DAILY Last Dose: [id number] on August 20, 2025 3:48:33 PM [facility] Active 523620 67368 18829 1 MONTELUKAST SODIUM 10.0 MG ORAL BEDTIME Last Dose: [id number] on August 20, 2025 3:48:41 PM [facility] Active 7456027 48020 88927 5 Tresiba FlexTouch Subcutaneous Solution Pen-injector 100 UNIT/ML 0.0 Last Dose: [id number] on August 21, 2025 12:21:08 PM [facility] Active 992872 21610 78612 0 Omeprazole Oral Capsule Delayed Release 40 MG 40.0 MG ORAL DAILY Last Dose: [id number] on August 20, 2025 3:49:00 PM UT Active 176217 34102 65232 0 Levocetirizi ne Dihydrochlor robert Oral Tablet 5 MG 5.0 MG ORAL DAILY Last Dose: [id number] on August 20, 2025 3:49:10 PM UT Active 797033 88430 57391 1 amLODIPine (NORVASC) 5.0 MG ORAL DAILY Last Dose: [id number] on August 20, 2025 3:49:18 PM UT Active 448516 16926 70629 1 metFORMIN (GLUCOPHAGE) 100.0 MG ORAL DAILY Last Dose: [id number] on August 20, 2025 3:49:29 PM UT Active 373354 81564 15453 1 amitriptylin e (ELAVIL) 50.0 MG ORAL DAILY Last Dose: [id number] on August 20, 2025 3:49:40 PM UT Active FreeT extMe d trelegy 0.0 Last Dose: [id number] on August 21, 2025 12:21:03 PM UT Active FreeT extMe d albuterol 0.0 Last Dose: [id number] on August 21, 2025 12:20:54 PM UT Active 2526031 07309 73199 3 PERCOCET 5-325 MG 1.0 TAB ORAL Q4HPRN Last Dose: [id number] on August 21, 2025 3:45:23 PM UT Active 450945 66096 07508 9 aspirin 325.0 MG ORAL DAILY Last Dose: [id number] on August 21, 2025 3:45:37 PM UT Active 349373 60777 26366 1 SENNOSIDES-D OCUSATE SODIUM 8.6-50 MG 1.0 TAB ORAL DAILYPRN Last Dose: [id number] on August 21, 2025 3:45:53 PM UT DISCHARGE MEDICATIONS Status RXNORM [facility] Medication Dose Route Frequency Dates Dis pense Data Comments Physician Updated By Continu ed [id number] 6667 7358 702 MONTELUKAST SODIUM 10.0 MG ORAL AT BEDTIME Prescr ibed: Decemb er 2024 3:46:4 2 PM UT Fill Status = Unknown, Repeat Number = 0, Quantity = 0 SNEHAL DASH MD [id number] on August 21, 2025 3:46:42 [id number] 5219 1086 201 Lisinopril- hydroCHLORO thiazide Oral Tablet 20-25 MG 1.0 TAB ORAL ONCE DAILY Prescr ibed: [facility] 2024 3:46:4 2 PM UTC Fill Status = Unknown, Repeat Number = 0, Quantity = 0 SNEHAL DASH MD [id number] on August 21, 2025 3:46:42 PM UTC Continu ed 8591517 6362 9266 015 Tresiba FlexTouch Subcutaneou s Solution Pen-injecto r 100 UNIT/ML 0.0 Prescr ibed: [facility] 2024 3:46:4 2 PM UTC Fill Status = Unknown, Repeat Number = 0, Quantity = 0 SNEHAL DASH MD [id number] on August 21, 2025 3:46:42 PM UTC Continu ed 557608 0325 2033 690 Levocetiriz ine Dihydrochlo ride Oral Tablet 5 MG 5.0 MG ORAL ONCE DAILY Prescr ibed: [facility] 2024 3:46:4 2 PM UTC Fill Status = Unknown, Repeat Number = 0, Quantity = 0 SNEHAL DASH MD [id number] on August 21, 2025 3:46:42 PM UTC Continu ed 2550381 7452 5531 911 KLOR-CON M20 20.0 MEQ ORAL ONCE DAILY Prescr ibed: [facility] 2024 3:46:4 2 PM UTC Fill Status = Unknown, Repeat Number = 0, Quantity = 0 SNEHAL DASH MD [id number] on August 21, 2025 3:46:42 PM UTC Continu ed Free Text Med trelegy 0.0 Prescr ibed: [facility] 2024 3:46:4 2 PM UTC Fill Status = Unknown, Repeat Number = 0, Quantity = 0 SNEHAL DASH MD [id number] on August 21, 2025 3:46:42 PM UTC Continu ed 918603 6158 8048 515 Ibuprofen Oral Tablet 800 MG 800.0 MG ORAL THREE TIMES A DAY NEEDED Prescr ibed: [facility] 2024 3:46:4 2 PM UTC Fill Status = Unknown, Repeat Number = 0, Quantity = 0 SNEHAL DASH MD [id number] on August 21, 2025 3:46:42 PM UTC Continu ed 147228 4766 7037 511 metFORMIN (GLUCOPHAGE ) 100.0 MG ORAL ONCE DAILY Prescr ibed: [facility] 2024 3:46:4 2 PM UTC Fill Status = Unknown, Repeat Number = 0, Quantity = 0 SNHEAL DASH MD [id number] on August 21, 2025 3:46:42 PM UTC Continu ed 198445 7799 4608 561 citalopram (CELEXA) 40.0 MG ORAL ONCE DAILY Prescr ibed: [facility] 2024 3:46:4 2 PM UTC Fill Status = Unknown, Repeat Number = 0, Quantity = 0 SNEHAL DASH MD [id number] on August 21, 2025 3:46:42 PM UTC Continu ed 617136 7613 4020 161 amitriptyli ne (ELAVIL) 50.0 MG ORAL ONCE DAILY Prescr ibed: [facility] 2024 3:46:4 2 PM UTC Fill Status = Unknown, Repeat Number = 0, Quantity = 0 SNEHAL DASH MD [id number] on August 21, 2025 3:46:42 PM UTC Continu ed 534905 2744 7041 811 amLODIPine (NORVASC) 5.0 MG ORAL ONCE DAILY Prescr ibed: [facility] 2024 3:46:4 2 PM UTC Fill Status = Unknown, Repeat Number = 0, Quantity = 0 SNEHAL DASH MD [id number] on August 21, 2025 3:46:42 PM UTC Continu ed 515049 9007 501 600 Omeprazole Oral Capsule Delayed Release 40 MG 40.0 MG ORAL ONCE DAILY Prescr ibed: [facility] 2024 3:46:4 2 PM UTC Fill Status = Unknown, Repeat Number = 0, Quantity = 0 SNEHAL DASH MD [id number] on August 21, 2025 3:46:42 PM UTC Continu ed 633063 3587 7062 211 SENNOSIDES- DOCUSATE SODIUM 8.6-50 MG 1.0 TAB ORAL ONCE DAILY NEEDED Prescr ibed: [facility] 2024 3:46:4 2 PM UTC Fill Status = Unknown, Repeat Number = 0, Quantity = 0 SNEHAL DASH MD [id number] on August 21, 2025 3:46:42 PM UTC Continu ed 062514 1240 6105 429 aspirin 325.0 MG ORAL ONCE DAILY Prescr ibed: [facility] 2024 3:46:4 2 PM UTC Fill Status = Unknown, Repeat Number = 0, Quantity = 0 SNEHAL DASH MD [id number] on August 21, 2025 3:46:42 PM UT Continu ed 5050776 1818 6051 223 PERCOCET 5-325 MG 1.0 TAB ORAL EVERY FOUR HOURS NEEDED Prescr ibed: [facility] 2024 3:46:4 2 PM UTC Fill Status = Unknown, Repeat Number = 0, Quantity = 0 SNEHAL DASH MD [id number] on August 21, 2025 3:46:42 PM UT INPATIENT MEDICATIONS Status [facility] Medication Dose Route Frequency Rat e Quantity Dates Indication Dispense Data Comments Physician Updated By Susan inued [id number] 7998 5605 105 ANCEF 2 G SOLR 2000. 0 MG INTRAV ENOUS ONE TIME ADMINISTRA TION (UNSCHEDUL ED) 200.0 ML/HR Start: [facility] 2024 10:00: 00 AM UTC End: [facility] 2024 12:09: 26 PM UT Pre-surgery evaluation Fill Status = Completed , Repeat Number = 0, Quantity = 4.000 SNEHAL DASH MD [id number] on August 21, 2025 12:09:00 PM UT Discont inued 0807203 0033 8915 930 sodium chloride MINI-BAG PLUS 0.9 % 100 ML MBP AJ 100.0 ML INTRAV ENOUS ONE TIME ADMINISTRA TION (UNSCHEDUL ED) 200.0 ML/HR Start: [facility] 2024 10:00: 00 AM UTC End: [facility] 2024 12:09: 25 PM UTC Pre-surgery evaluation Fill Status = Completed , Repeat Number = 0, Quantity = 4.000 SNEHAL DASH MD [id number] on August 21, 2025 12:09:00 PM [facility] Discont inued [id number] lactated ringers (LR) SOLN 1000. 0 ML INTRAV ENOUS CONT 25.0 ML/HR Start: [facility] 2024 12:12: 00 PM UTC End: [facility] 2024 3:46:4 2 PM UTC Fill Status = Completed , Repeat Number = 0, Quantity = 0.000 TAYLER Cristina CRNA [id number] on August 22, 2025 5:25:00 AM UTC Discont inued [id number] fentaNYL (SUBLIMAZE) 100 MCG/2ML SOLN 25.0 MCG INTRAV ENOUS EVERY 5 MINUTES NEEDED (PACU) Start: [facility] 2024 12:12: 00 PM UTC End: [facility] 2024 3:46:4 2 PM UTC Fill Status = Completed , Repeat Number = 0, Quantity = 0.000 TAYLER Cristina CRNA [id number] on August 22, 2025 5:25:00 AM UTC Discont inued [id number] HYDROmorpho ne (DILAUDID) 1 MG/ML SOLN 0.5 MG INTRAV ENOUS EVERY 10 MINUTES NEEDED (PACU) Start: [facility] 2024 12:12: 00 PM UTC End: [facility] 2024 3:46:4 2 PM UTC Fill Status = Completed , Repeat Number = 0, Quantity = 0.000 TAYLER Cristina CRNA [id number] on August 22, 2025 5:25:00 AM UTC Discont inued [id number] 7485 6051 223 PERCOCET 5-325 MG TABS 1.0 TAB ORAL NEEDED Start: [facility] er 2024 12:12: 00 PM UTC End: [facility] er 2024 3:46:4 2 PM UTC Fill Status = Completed , Repeat Number = 0, Quantity = 2.000 TAYLER Cristina CRNA [id number] on August 22, 2025 5:25:00 AM UTC Discont inued [id number] 2895 9475 503 ondansetron (ZOFRAN) 4 MG/2ML SOLN 4.0 MG INTRAV ENOUS EVERY 30 MINUTES NEEDED Start: [facility] er 2024 12:12: 00 PM UTC End: [facility] er 2024 3:46:4 2 PM UTC Fill Status = Completed , Repeat Number = 0, Quantity = 1.000 TAYLER Cristina CRNA [id number] on August 22, 2025 5:25:00 AM UTC Discont inued [id number] 7368 9469 930 propofol (DIPRIVAN) 200 MG/20ML EMUL 20.0 ML INTRAV ENOUS ONE TIME ONLY Start: [facility] er 2024 11:31: 00 AM UTC End: [facility] er 2024 11:31: 00 AM UTC Fill Status = Completed , Repeat Number = 0, Quantity = 1.000 SNEHAL DASH MD INTERFAC ED on August 21, 2025 11:31:00 AM UTC Discont inued [id number] 1117 3028 631 ropivacaine (NAROPIN) 5 MG/ML SOLN 150.0 MG ONE TIME ONLY Start: [facility] 2024 12:25: 00 PM UTC End: [facility] 2024 12:25: 00 PM UTC Fill Status = Completed , Repeat Number = 0, Quantity = 1.000 SNEHAL DASH MD INTERFAC ED on August 21, 2025 12:23:00 PM UTC Discont inued [id number] 1976 1074 125 VERSED 2 MG/2ML SOLN 2.0 MG INTRAV ENOUS ONE TIME ONLY Start: [facility] 2024 12:25: 00 PM UTC End: [facility] 2024 12:25: 00 PM UTC Fill Status = Completed , Repeat Number = 0, Quantity = 1.000 SNEHAL DASH MD INTERFAC ED on August 21, 2025 12:24:00 PM UTC Discont inued 124589 3599 2100 001 tranexamic acid 1000 MG/10ML SOLN 1000. 0 MG ONE TIME ONLY Start: [facility] 2024 12:49: 00 PM UTC End: [facility] 2024 12:49: 00 PM UTC Fill Status = Completed , Repeat Number = 0, Quantity = 2.000 SNEHAL DASH MD INTERFAC ED on August 21, 2025 12:49:00 PM UTC Discont inued 0150998 4051 9379 601 ketorolac (TORADOL) 60 MG/2ML SOLN 60.0 MG INTRAM USCULA R ONE TIME ONLY Start: [facility] 2024 1:23:0 0 PM UTC End: [facility] 2024 1:23:0 0 PM UTC Fill Status = Completed , Repeat Number = 0, Quantity = 1.000 SNEHAL DASH MD INTERFAC ED on August 21, 2025 1:23:00 PM UTC Discont inued [id number] 7278 3055 601 dexamethaso ne PF (DECADRON) 10 MG/ML SOLN 10.0 MG ONE TIME ONLY Start: [facility] 2:23:0 0 PM UTC End: [facility] 2024 2:23:0 0 PM UTC Fill Status = Completed , Repeat Number = 0, Quantity = 1.000 SNEHAL DASH MD INTERFAC ED on August 21, 2025 2:23:00 PM UT Discont inued 947038 7380 0003 310 metoprolol tartrate(LO PRESSOR) 1 MG/ML SOLN 5.0 MG INTRAV ENOUS ONE TIME ONLY Start: [facility] 2024 4:00:0 0 PM UTC End: [facility] 2024 4:00:0 0 PM UTC Fill Status = Completed , Repeat Number = 0, Quantity = 1.000 SNEHAL DASH MD INTERFAC ED on August 21, 2025 3:59:00 PM UT SOCIAL HISTORY SOCIAL HISTORY - Smoking Status SNOMED-CT Social History Element Description Effective Dates Offered Cessation Comment Updated By No Smoking Information Avail able SOCIAL HISTORY - Gender Sex: Female SOCIAL HISTORY - Status : status i nformation is not available Intention in Next Year: intention information is not available SOCIAL HISTORY - Assessments Code System Description Status Date Value of Assessment Updated By Comment Assessment Information is no t available SOCIAL HISTORY - [place] Affiliation [place] information is not av ailable SOCIAL HISTORY - Sexual Behavior Sexual Orientation Gender Identity SNOMED-CT Description SNO MED -CT Description Activity Level No of Partners Partner Type UpdatedBy Information is not available SOCIAL HISTORY - Occupation Occupation information is no t available VITAL SIGNS PATIENT VITAL SIGNS This section displays the mo st recent value for each vital sign as of August 25, 2025 10:58:42 AM UT Loinc Code Vital Sign Activity Date Result Updated By 8302-2 Body height August 20, 2025 3:46:06 PM UT 162.56 cm (64.0 in) [id number] on August 20, 2025 3:46:06 PM [facility] 23987-2 Body mass index (BMI ) [Ratio] August 20, 2025 3:46:06 PM UTC 28.207 kg/m2 [id number] on August 20, 2025 3:46:06 PM [facility] 3140-1 Body Surface Area Derived From Formula August 20, 2025 3:46:06 PM UTC 1.7994 m2 [id number] on August 20, 2025 3:46:06 PM UTC 8310-5 Body temperature August 21 4:47:00 PM UTC 97.0 [degF] [id number] on August 21, 2025 4:57:40 PM UTC 76773-4 Body weight Measured August 20, 2025 3:46:06 PM UTC 74.54 kg (164.0 lb) [id number] on August 20, 2025 3:46:06 PM UTC 8462-4 Diastolic blood pressure August 21, 2025 4:47:00 PM UTC 76.0 mm[Hg] [id number] on August 21, 2025 4:57:40 PM UTC 8867-4 Heart rate August 21, 2025 4:47:00 PM UTC 79 /min [id number] on August 21, 2025 4:57:40 PM UTC 53982-9 Oxygen saturation in Arterial blood by Pulse oximetry August 21, 2025 4:47:00 PM UTC 96.0 % [id number] on August 21, 2025 4:57:40 PM UTC 9279-1 Respiratory rate August 21 4:47:00 PM UTC 18 /min [id number] on August 21, 2025 4:57:40 PM UTC 8480-6 Systolic blood pressure August 21, 2025 4:47:00 PM UTC 168.0 mm[Hg] [id number] on August 21, 2025 4:57:40 PM UTC PEDIATRIC GROWTH CHART - VITAL SIGNS This section displays Head C ircumference Percentile, Weight for Length Percentile and BMI Percentile Loinc Code Pediatric Measure Age (Months) Result Updat ed By No Pediatric Growth Chart Pe rcentile Information Available. PROCEDURES PATIENT PROCEDURES CODE SYSTEM DESCRIPTION STATUS PERFORMED DATE UPD ATED BY [id number] SNOMED-CT ARTHROPLASTY TOT AL KNEE completed August 21, 2025 5:00:00 AM UTC [id number] on August 21, 2025 3:41:55 PM UTC PROCEDURE NOTE Note Title Operative/Procedure Note Date Of Service August 21, 2025 3:4 7:13 PM UTC Created By [id number] on August 21, 2025 3:47:13 PM UTC Signed By [id number] on August 21, 2025 3:48:29 PM [facility] Pre-Procedure Diagnosis 1. Right knee osteoarthritis Post- Procedure Diagnosis Same Procedure / Surgery 1. Right total knee arthroplasty CPT code 08213 Anesthesia Type General anesthesia Estimated Blood Loss Minimal Complications None Present at Time of Surgery Yes Indication Patient initially came to see me with right knee pain. Dull achy pain in nature. It was worse with going up stairs. Worse the more they were up on it. Continued to bother despite conservative measures of rest ice anti-inflammatories physical therapy as well as cortisone injections. X-ray showed severe arthritis of the right knee. I explained the benefit from a right total knee arthroplasty. I discussed the typical risks benefits and alternatives of the procedure with the patient wished to proceed. Risks included bleeding infection damage to nerves vessels need for further procedures stroke heart attack blood clot even . Procedure Description / Findings Patient was seen in the preoperative holding area. Right lower extremity was marked. H and P and consent were updated. They were then wheeled to the operative suite placed on the operating table in the supine position. They then underwent general endotracheal anesthesia without complication. Tourniquet was applied to the right lower extremity. Right lower extremity was prepped and draped in normal sterile orthopedic fashion. Time-out was performed antibiotics and tranexamic acid had been given. Right lower extremity was then exsanguinated tourniquet inflated. Incision was then made in the midline 3 fingerbreadths above the superior pole patella to the medial aspect of the tibial tubercle. This was taken down through subcutaneous tissue to identify the extensor mechanism. Medial parapatellar arthrotomy was then performed followed by slight peel the deep MCL removal of lateral fat pad and anterior synovitis. Next we everted the patella remove soft tissue from around the patella and made our patellar cut that was 13 mm thick and flat. We then marked Whitesides line trans epicondylar axis. We removed the ACL. We then placed our intramedullary femoral guide set at 5 valgus taking 9 mm distal femoral cut. Pinned our distal femoral cutting block into place made our distal femoral cut. We then placed a sizing guide reference off the posterior condyles to get the size of our femur.. We then placed the correct size 4 in [address] made our anterior cut making sure not to notch femur followed by our posterior condylar cut posterior chamfer cut and anterior chamfer cut. Next we placed extramedullary tibial guide set our varus valgus and our posterior slope set to take 2 mm off the medial side which was low side. Made our proximal tibial cut. We then brought the leg out to full extension removed mediolateral meniscus released superficial MCL and medial-sided osteophytes that they was tight medially. Next we placed the attune dog bone making sure we taken of bone in both flexion and extension. We then placed a femoral sulcus cutting guide and made our femoral sulcus cut and removed posterior osteophytes with a curved osteotome and a mallet. We then brought tibia forward set our rotation medial 3rd of the tibial tubercle for the correct size tibial base plate reamed and punches. We were now ready for trialing with our in place insert came out to full extension stable to varus valgus stress at 90 of flexion we elevated 1 mm on the medial side 2-3 mm on lateral side felt we had a nice well-balanced knee in both flexion and extension. We then made our patellar cut making sure was parallel to the tibial cut placed a patellar trial and it tracked appropriately with no hands technique. We then removed all trial components thoroughly irrigated suctioned and dried the wound injected our posterior capsule local anesthetic and then cemented on the tibial component removing excess cement with [place] and pickups followed by the femoral component again removing excess cement with [place] pickups. We placed a real polyethylene snapped this into place brought the leg out in full extension. We then cemented on our patellar component held all this in place until the cement cured. Thoroughly irrigated suctioned and dried the wound. We then closed in layered fashion using 1. Stratafix to close parapatellar arthrotomy. 2-0 Vicryl to close subcutaneous tissue and 3-0 Monocryl to close subcuticular layer. Prineo dressing was applied followed by Covaderm. Patient was then awoken from general endotracheal anesthesia without complication taken recovery room stable condition. Specimens None Tubes/Drains None Implants depuy 32 mm anatomic patella, attune size 4 narrow cruciate retaining right femur, 4 x 5 mm cruciate-retaining fixed bearing insert, attune size 4 tibial base plate fixed bearing S + Disposition of Patient Patient be discharged home. Weightbear as tolerated the right lower extremity. She will be working with home health physical therapy. Keep incision dry. Leave dressing intact until return to clinic. Okay to shower in 2 days. I will prescribe her Percocet Senokot and aspirin. I will see her back in 2 weeks. Electronically signed by SNEHAL DASH MD on 1048 MEDICAL EQUIPMENT MEDICAL EQUIPMENT Device Status Quantity Dates Procedure Comments Updated By Orthopedic cement extraction system MARY ANN: )[id number] Assigning Authority: FDA Device Identifier:[id number] ACTIVE 2 Implanted: August 21, 2025 ARTHROPLASTY TOTAL KNEE RIGHT [id number] on August 21, 2025 3:04:12 PM UT Uncoated knee tibia prosthesis, metallic MARY ANN: ()[id number] 1 Assigning Authority: FDA Device Identifier:[id number] ACTIVE 1 Implanted: August 21, 2025 ARTHROPLASTY TOTAL KNEE RIGHT [id number] on August 21, 2025 3:11:03 PM UT Knee femur prosthesis MARY ANN: )[id number] Assigning Authority: FDA Device Identifier:[id number] ACTIVE 1 Implanted: August 21, 2025 ARTHROPLASTY TOTAL KNEE RIGHT [id number] on August 21, 2025 3:13:54 PM UT Tibial insert MARY ANN: )[id number] 6 Assigning Authority: FDA Device Identifier:[id number] ACTIVE 1 Implanted: August 21, 2025 ARTHROPLASTY TOTAL KNEE RIGHT [id number] on August 21, 2025 3:16:50 PM UT Polyethylene patella prosthesis MARY ANN: ()[id number] 1 Assigning Authority: FDA Device Identifier:[id number] ACTIVE 1 Implanted: August 21, 2025 ARTHROPLASTY TOTAL KNEE RIGHT [id number] on August 21, 2025 3:17:27 PM [facility] ENCOUNTERS ENCOUNTER INFORMATION Reason for Visit RT TKA Admission August 21, 2025 11:50:[address] [address] Discharge August 21, 2025 7:50:00 PM [facility] DISCHARGED TO HOME OR SELF CARE ENCOUNTER DIAGNOSES Notes information is not dontae ilable. Code System Diagnosis Onset Date Diagnosis information is not available. ABSTRACT DIAGNOSES Code System Diagnosis Updated By Abatement Date M17.11 ICD10 UNILATERAL PRIMA RY OSTEOARTHRITIS, RIGHT KNEE [id number] on August 25, 2025 10:58:18 AM [facility] M17.11 ICD10 UNILATERAL PRIMA RY OSTEOARTHRITIS, RIGHT KNEE [id number] on August 25, 2025 10:58:18 AM UT I10 ICD10 ESSENTIAL (PRIMA RY) HYPERTENSION [id number] on August 25, 2025 10:58:18 AM UT E11.9 ICD10 TYPE 2 DIABETES MELLITUS WITHOUT COMPLICATIONS [id number] on August 25, 2025 10:58:18 AM UT M70.62 ICD10 TROCHANTERIC BUR SITIS, LEFT HIP [id number] on August 25, 2025 10:58:18 AM UT M70.61 ICD10 TROCHANTERIC BUR SITIS, RIGHT HIP [id number] on August 25, 2025 10:58:18 AM [facility] J45.909 ICD10 UNSPECIFIED ASTH MA, UNCOMPLICATED [id number] on August 25, 2025 10:58:18 AM UT K21.9 ICD10 GASTRO-ESOPHAGEA L REFLUX DISEASE WITHOUT ESOPHAGITIS [id number] on August 25, 2025 10:58:18 AM [facility] F17.210 ICD10 NICOTINE DEPENDE NCE, CIGARETTES, UNCOMPLICATED [id number] on August 25, 2025 10:58:18 AM [facility] Z79.4 ICD10 DETENTION (CURRE NT) USE OF INSULIN [id number] on August 25, 2025 10:58:18 AM [facility] Z79.899 ICD10 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 [id number] on August 25, 2025 10:58:18 AM [facility] Z79.51 ICD10 DETENTION (CURRE NT) USE OF INHALED STEROIDS [id number] on August 25, 2025 10:58:18 AM [facility] Z79.84 ICD10 ELECTRONIC PARTS DESIGNER (CURRE NT) USE OF ORAL HYPOGLYCEMIC DRUGS [id number] on August 25, 2025 10:58:18 AM [facility] CARE TEAM Care Hand Edger Role EKTA BRIAN Referring EKTA BRIAN Surgeon LUKE VERDUGO Primary Care EKTA BRIAN Admitting EKTA BRIAN Primary Attending DAT WILSON [facility] HOSPITAL DISCHARGE INSTRUCTION DISCHARGE INSTRUCTION Encounter [id number] Admit Date August 21, 2025 11: 50:00 AM [facility] Discharge Date August 21, 2025 7:5 0:00 PM [facility] PATIENT EDUCATION SUMMARY Patient/Visit Information: Patient Name: MIRIAM CHRIS Diag: Attending Caregiver: SNEHAL DASH MD Discharge Instruction Sheets Provided: * BREEZYBN Stroke && BEFAST Education *[facility] Total Joint Post-Op instructions *[facility] Patient Portal *BRBN Social Determinants of Health *BRBN Suicidal Feelings: How to Help Yourself (LPNT) () General Anesthesia, Adult, Care After Opioid Pain Medicine Management, Yxjp-ft-Ulzy Smoking\Tobacco Cessation - [facility] () () Total Knee Replacement, Care After Patient Instructions: Followup Appointments/Instructions: CARE TEAM CARE honey liquefier Role on Team Location Telecom Status Start Date End Eslwyn e Updated By KATIE DAUGHERTY CRNA MUSIC LEADER Surgeon [address] [place], [address] [phone] normal August 21, 2025 6:00:00 AM UT August 21, 2025 7:50:00 PM UT [id number] on August 25, 2025 10:55:22 AM [facility] KATIE DAUGHERTY CRNA MUSIC LEADER Healthcare professional [address] [place], [address] [phone] normal August 21, 2025 2:13:00 PM UT August 21, 2025 7:50:00 PM UT [id number] on August 25, 2025 10:55:22 AM [facility] SNEHAL DASH MD Surgeon [address] [place], [address] [phone] normal August 21, 2025 2:30:00 PM UT August 21, 2025 7:50:00 PM UT [id number] on August 25, 2025 10:55:22 AM [facility] LUCINA Aguilar APRN PCP [address], [place], [address] normal August 18, 2025 4:16:02 PM UT August 21, 2025 5:00:00 AM UT [id number] on August 25, 2025 10:55:22 AM UT UNDEFINED PROVIDER RK PCP [facility] [place], [address] normal August 13, 2025 10:48:42 AM UT August 18, 2025 4:16:02 PM UT [id number] on August 25, 2025 10:55:22 AM [facility] SNEHAL DASH MD Referring [address] [place] [address], [phone] normal August 13, 2025 10:48:42 AM UT August 21, 2025 5:00:00 AM UTC [id number] on August 25, 2025 10:55:22 AM [facility] SNEHAL DASH MD Attending [address] [place] [address], [phone] normal August 13, 2025 10:48:42 AM [facility] August 21, 2025 5:00:00 AM [facility] [id number] on August 25, 2025 10:55:22 AM [facility] SNEHAL DASH MD Admitting [address] [place] [address], [phone] normal August 13, 2025 10:48:42 AM [facility] August 21, 2025 5:00:00 AM [facility] [id number] on August 25, 2025 10:55:22 AM [facility] INSURANCE PROVIDERS INSURANCE PROVIDER Coverage Status - Effective Date Coverage Type Payor Plan Order Relationship To Subscriber Insurance Plan No Insurance Plan 2024-09-18 M PRIMARY 18 [phone] [facility] HUM[facility] A 2024-09-18 W SECONDARY [id number] [phone] [facility]
--- OUTSIDE RECORDS SUMMARY | 2025-09-03 19:00 | XMS_ITS | Clinical Summary ---
Author Organization Unknown Care Team Providers Care Yard Coupler Name Role Phone SNEHAL MAYORGA, EKTA Unavailable Unavailable CARISA PT, CHASE Unavailable Unavailable ROBERT SOFIA, KARY Unavailable Unavailable Payers Payer Name Policy Type Policy Number Effective Date Expira tion Date [employer]ETH.[employer].AUTH [id number] Problems Condition Name Condition Details Condition Category Status Onset Date Resolution Date Last Treatment Date Treating Clinician Comments AFTERCARE FOLLOWING JOINT REPLACEMENT SURGERY Active 2024-09 00:00: 00 PRESENCE OF RIGHT ARTIFICIAL KNEE JOINT Active 2024-09 00:00: 00 Allergies, Adverse Reactions, Alerts Allergy Name Allergy Type Status Severity Reaction(s) Onset Date Inactive Date Treating Clinician Comments NO KNOWN ALLERGIES Propensity to adverse reactions Active 2024-09 16:44: 00 Medications Ordered Medication Name Filled Medication Name Start Date Stop Date Current Medication? Ordering Clinician Indication Dosage Frequency Signature (SIG) Comments Components omeprazole 40 mg capsule,del ayed release 2024-09 00:00: 00 Yes [id number] GERD 1 capsule DAILY 1 capsule DAILY (route: oral) Med Classific ation: Gastroint estinal Therapy Agents albuterol sulfate HFA 90 mcg/actuati on aerosol inhaler 2024-09 00:00: 00 Yes [id number] SHORTNESS OF BREATH 2 puff DAILY 2 puff DAILY (route: inhalation ) Med Classific ation: Respirato ry Therapy Agents amlodipine 5 mg tablet 2024-09 00:00: 00 Yes [id number] BLOOD PRESSURE 1 tablet DAILY 1 tablet DAILY (route: oral) Med Classific ation: Cardiovas cular Therapy Agents ibuprofen 800 mg tablet 2024-09 00:00: 00 Yes [id number] PAIN 1 tablet EVERY 8 HOURS 1 tablet EVERY 8 HOURS (route: oral) Med Classific ation: Analgesic , Anti-infl ammatory or Antipyret ic fluticasone propionate 50 mcg/actuati on nasal spray,suspe nsion 2024-09 1-03 00:00: 00 Yes [id number] ALLERGIES 1 spray DAILY 1 spray DAILY (route: nasal) Med Classific ation: Respirato ry Therapy Agents magnesium oxide 400 mg (241.3 mg magnesium) tablet 2024-09 0-27 00:00: 00 Yes [id number] SUPPLEMENTA L 1 tablet DAILY 1 tablet DAILY (route: oral) Med Classific ation: Electroly te Balance-N utritiona l Products oxycodone 5 mg tablet 2024-09 2- 00:00: 00 Yes [id number] PAIN 1 tablet EVERY 6 HOURS 1 tablet EVERY 6 HOURS (route: oral) Med Classific ation: Analgesic , Anti-infl ammatory or Antipyret ic Vital Signs Vital Name Observation Time Observation Value Commen ts Temperature 2025-09-04 15:04:00.000 97.6 [degF] Temperature 2025-09-02 14:59:00.000 98.6 [degF] Temperature 2025-08-29 14:59:00.000 98.6 [degF] Temperature 2025-08-28 15:37:00.000 97 [degF] Temperature 2025-08-27 15:20:00.000 98.6 [degF] Temperature 2025-08-22 16:44:00.000 97.5 [degF] BMI (%) 2025-08-22 16:43:41.000 27 kg/m2 Height 2025-08-22 16:43:37.000 64 [in_us] Pulse 2025-09-04 15:04:00.000 68 /min Pulse 2025-09-02 14:59:00.000 78 /min Pulse 2025-08-29 14:59:00.000 86 /min Pulse 2025-08-28 15:37:00.000 97 /min Pulse 2025-08-27 15:20:00.000 70 /min Pulse 2025-08-22 16:44:00.000 90 /min O2 Saturation (%) 2025-08-22 16:44:00.000 95 % Respirations 2025-09-04 15:04:00.000 18 /min Respirations 2025-09-02 14:59:00.000 15 /min Respirations 2025-08-29 14:59:00.000 18 /min Respirations 2025-08-28 15:37:00.000 18 /min Respirations 2025-08-27 15:20:00.000 18 /min Respirations 2025-08-22 16:44:00.000 18 /min Weight (lbs) 2025-08-22 16:43:41.000 163 [lb_av] Systolic Blood Pressure 2025-09-04 15:04:00.000 116 mm [Hg] Systolic Blood Pressure 2025-09-02 14:59:00.000 112 mm [Hg] Systolic Blood Pressure 2025-08-29 14:59:00.000 132 mm [Hg] Systolic Blood Pressure 2025-08-28 15:37:00.000 132 mm [Hg] Systolic Blood Pressure 2025-08-27 15:20:00.000 135 mm [Hg] Systolic Blood Pressure 2025-08-22 16:44:00.000 124 mm [Hg] Diastolic Blood Pressure 2025-09-04 15:04:00.000 68 mm [Hg] Diastolic Blood Pressure 2025-09-02 14:59:00.000 68 mm [Hg] Diastolic Blood Pressure 2025-08-29 14:59:00.000 63 mm [Hg] Diastolic Blood Pressure 2025-08-28 15:37:00.000 63 mm [Hg] Diastolic Blood Pressure 2025-08-27 15:20:00.000 63 mm [Hg] Diastolic Blood Pressure 2025-08-22 16:44:00.000 66 mm [Hg] Plan of Treatment Planned Activity Planned Date Details Comments Future Scheduled Test AGENCY MAY PERFORM A RESUMPTION OF CARE VISIT FOLLOWING ANY HOSPITAL ADMISSION. PT TO EVALUATE, OBSERVE / ASSESS, AND MONITOR, COMMERCIAL LOAN COLLECTION OFFICER TO OBSERVE AND MONITOR, PROVIDE SKILLED THERAPEUTIC INTERVENTION, ACTIVITY, EDUCATION, AND TRAINING TO ADDRESS; [code = AGENCY MAY PERFORM A RESUMPTION OF CARE VISIT FOLLOWING ANY HOSPITAL ADMISSION. PT TO EVALUATE, OBSERVE / ASSESS, AND MONITOR, COMMERCIAL LOAN COLLECTION OFFICER TO OBSERVE AND MONITOR, PROVIDE SKILLED THERAPEUTIC INTERVENTION, ACTIVITY, EDUCATION, AND TRAINING TO ADDRESS;] Future Scheduled Test SIT TO/FRO M STAND TRANSFERS (PT/COMMERCIAL LOAN COLLECTION OFFICER) [code = SIT TO/FROM STAND TRANSFERS (PT/COMMERCIAL LOAN COLLECTION OFFICER)] Future Scheduled Test PT/COMMERCIAL LOAN COLLECTION OFFICER TO PROVIDE GAIT TRAINING FOR IMPROVED MOBILITY AND /OR TO NORMALIZE GAIT PATTERN [code = PT/COMMERCIAL LOAN COLLECTION OFFICER TO PROVIDE GAIT TRAINING FOR IMPROVED MOBILITY AND /OR TO NORMALIZE GAIT PATTERN] Future Scheduled Test NEUROMUSCU LAR RE-EDUCATION / BALANCE / POSTURAL CONTROL (PT) [code = NEUROMUSCULAR RE-EDUCATION / BALANCE / POSTURAL CONTROL (PT)] Future Scheduled Test THERAPEUTI C EXERCISES AND ESTABLISHING A HOME EXERCISE PROGRAM (PT/COMMERCIAL LOAN COLLECTION OFFICER) [code = THERAPEUTIC EXERCISES AND ESTABLISHING A HOME EXERCISE PROGRAM (PT/COMMERCIAL LOAN COLLECTION OFFICER)] Future Scheduled Test PT/COMMERCIAL LOAN COLLECTION OFFICER TO IDENTIFY FALL RISK FACTORS; EDUCATE THE PATIENT/CAREGIVER ON WAYS TO REDUCE FALL RISK FACTORS AND ESTABLISH HOME EXERCISE PROGRAM TO MINIMIZE FALL RISK. MAY TEACH THE PATIENT FLOOR RECOVERY WHEN CLINICALLY APPROPRIATE [code = PT/COMMERCIAL LOAN COLLECTION OFFICER TO IDENTIFY FALL RISK FACTORS; EDUCATE THE PATIENT/CAREGIVER ON WAYS TO REDUCE FALL RISK FACTORS AND ESTABLISH HOME EXERCISE PROGRAM TO MINIMIZE FALL RISK. MAY TEACH THE PATIENT FLOOR RECOVERY WHEN CLINICALLY APPROPRIATE] Future Scheduled Test PT/COMMERCIAL LOAN COLLECTION OFFICER TO TEACH KNEE REPLACEMENT SELF-MANAGEMENT [code = PT/COMMERCIAL LOAN COLLECTION OFFICER TO TEACH KNEE REPLACEMENT SELF-MANAGEMENT] Future Scheduled Test PT / COMMERCIAL LOAN COLLECTION OFFICER T O INSTRUCT PATIENT/CAREGIVER ON RISK FOR HOSPITALIZATION/EMERGENCY ROOM VISITS, TEACH SIGNS AND SYMPTOMS THAT PUT PATIENT AT RISK, WHEN TO NOTIFY NURSE/PHYSICIAN OF COMPLICATIONS/DECLINE, AND WHEN TO CALL 911. [code = PT / COMMERCIAL LOAN COLLECTION OFFICER TO INSTRUCT PATIENT/CAREGIVER ON RISK FOR HOSPITALIZATION/EMERGENCY ROOM VISITS, TEACH SIGNS AND SYMPTOMS THAT PUT PATIENT AT RISK, WHEN TO NOTIFY NURSE/PHYSICIAN OF COMPLICATIONS/DECLINE, AND WHEN TO CALL 911.] Future Scheduled Test PT / COMMERCIAL LOAN COLLECTION OFFICER T O MONITOR AND EDUCATE ON OXYGEN SATURATION DURING ADLS/IADLS, NOTIFY PHYSICIAN AND/OR THE RN CLINICAL CUSTOMER SERVICE ASSISTANT FOR PHYSICIAN NOTIFICATION AND IF O2 SATS BELOW PHYSICIAN ORDERED PARAMETERS AFTER 10 MIN OF REST [code = PT / COMMERCIAL LOAN COLLECTION OFFICER TO MONITOR AND EDUCATE ON OXYGEN SATURATION DURING ADLS/IADLS, NOTIFY PHYSICIAN AND/OR THE RN CLINICAL CUSTOMER SERVICE ASSISTANT FOR PHYSICIAN NOTIFICATION AND IF O2 SATS BELOW PHYSICIAN ORDERED PARAMETERS AFTER 10 MIN OF REST] Goal 2025-09-04 Patient Goal - I NDEPENDENCE WITH FUNCTIONAL ACTIVITIES Goal Provider Goal - Goal Provider Goal - PT STG: PATIENT WILL DEMONSTRATE IMPROVED ABILITY TO PERFORM SIT TO/FROM STAND TRANSFERS TO REDUCE THE RISK OF SKIN BREAKDOWN AND REDUCE FALL RISK FROM MIN TO IND WITHIN 8 WEEKS Goal Provider Goal - PT STG: PATIENT WILL DEMONSTRATE IMPROVED AMBULATION FROM CGA TO SBA WITH APPROPRIATE AD WITHIN 4 WEEKS. PT LTG: PATIENT WILL DEMONSTRATE IMPROVED AMBULATION FROM CGA TO IND WITH APPROPRIATE AD WITHIN 8 WEEKS. Goal Provider Goal - PT LTG: PATIENT WILL DEMONSTRATE REDUCED FALL RISK EVIDENCED BY TUG TEST (CUT SCORE >11 SECONDS INDICATES INCREASED FALL RISK) IMPROVING FROM UNABLE TO LESS THAN OR EQUAL TO 11 SECONDS WITHIN 8 WEEKS Goal Provider Goal - PT LTG: PATIENT WILL DEMONSTRATE IMPROVED FUNCTIONAL STRENGTH EVIDENCED BY FIVE TIMES SIT TO STAND TEST (CUT SCORE >12 SECONDS INDICATES AN INCREASED FALL RISK) IMPROVING FROM UNABLE TO LESS THAN OR EQUAL TO 12 SECONDS WITHIN 8 WEEKS IN ORDER TO DECREASE FALL RISK PT LTG: PATIENT WILL DEMONSTRATE INDEPENDENCE AND COMPLIANCE WITH HEP WITHIN 4 WEEKS PT LTG: PATIENT WILL DEMONSTRATE INCREASED ROM OF RIGHT KNEE FROM 0-65 DEG TO 0-120 DEG WITHIN 8 WEEKS IN ORDER TO IMPROVE KNEE MOBILITY Goal Provider Goal - PT LTG: PATIENT/CAREGIVER WILL DEMONSTRATE ADHERENCE TO FALL REDUCTION SELF-MANAGEMENT AND REDUCING FALL RISK FACTORS TO MINIMIZE FALL RISK BY END OF EPISODE. Goal Provider Goal - PT GOAL: PATIENT WILL DEMONSTRATE OPTIMAL OUTCOMES, INCLUDING INCREASED ROM AND STRENGTH AND FUNCTIONAL MOBILITY FOLLOWING KNEE SURGERY BY END OF EPISODE. Goal Provider Goal - PT GOAL: PATIENT/CAREGIVER WILL VERBALIZE UNDERSTANDING OF SIGNS AND SYMPTOMS THAT PUT THE PATIENT AT RISK FOR HOSPITALIZATION /EMERGENCY ROOM VISITS, WHEN TO NOTIFY NURSE/PHYSICIAN OF COMPLICATIONS/DECLINE AND WHEN TO CALL 911. Goal Provider Goal - PT LTG: PATIENT WILL MAINTAIN OXYGEN SATURATION WITHIN PHYSICIAN ORDERED PARAMETERS THROUGHOUT EPISODE OF CARE. Reason for Visit INDEPENDENT WITH USE OF ASSISTIVE DEVICE Encounters Start Date/Time End Date/Time Encounter Type Admission Type Attending [facility] Care Department Encounter ID Discharge Date Discharge Status Discharge Condition Discharge Reason Percent Goals Met 2025-08-22 00:00:00 2025-09-04 00:00:00 Outpatient NEW ADMISSION [facility] [id number] 2025-09-04 00:00:00 DISCHARGE TO HOME OR SELF CARE INDEPENDEN T WITH USE OF ASSISTIVE DEVICE HH - DISCHARGE TO OUTPATIENT REHAB 100.00
--- OUTSIDE RECORDS SUMMARY | 2025-09-08 08:14 | XMS_ITS | Continuity of Care Document ---
Author Organization [facility] Phone Care Team Providers Care Social Insurance Adviser Name Role Phone EKTA BRIAN Primary Attending EKTA BRIAN Unavailable EKTA BRIAN Admitting LUKE VERDUGO Primary Care ALLERGIES AND ADVERSE REACTIONS ALLERGIES AND ADVERSE REACTIONS Code System Allergy Substance Adverse Reaction Date Reaction (Severity) Comment Status Reported By Updated By No Known Allergies [id number] on August 20, 2025 3:46:12 PM [facility] RESULTS Patient: DOT PINEDA Date of : 1965 8 LABORATORY RESULTS Information is not available LABORATORY NARRATIVE RESULTS Information is not available RADIOLOGY RESULTS ORDER 100: KNEE 2V RT (LOINC : [id number]) ORDER DATE: September 04, 2025 3:40:00 PM [facility] PERFORMING LAB: [address] [id number] Final Result Date: September 04, 2025 3:47:[address] [place] [address] Name: MIRIAM CHRIS Exam Date: 09/04/2025 : 1965 Age 60 years Gender: F Physician: EKTA BRIAN Facility: [facility] Facility HSV: Outpatient Exam: KNEE 2V RT EXAM: 2 VIEW(S) XRAY OF THE RIGHT KNEE 09/04/2025 10:47:49 AM COMPARISON: XR Right knee 08/21/2025. CLINICAL HISTORY: Standing. Unilateral primary osteoarthritis, right knee. FINDINGS: BONES AND JOINTS: Arthroplasty hardware is well aligned. SOFT TISSUES: Mild anterior soft tissue swelling. IMPRESSION: 1. Mild anterior soft tissue swelling. 2. Arthroplasty hardware well aligned. Electronically signed by: Cliff Stanford MD 09/04/2025 11:00 AM [facility] Dictated By: Cliff Stanford Transcribed By: Transcribed On: 09/04/2025 10:47 AM Electronically signed by: Cliff Stanford 09/04/2025 Thank you for referring MIRIAM CHRIS to [facility]. Legally authenticated by SAMM RICKETTS MD 2025-09-04 10:47:49 PATHOLOGY NARRATIVE RESULTS Information is not available MICROBIOLOGY RESULTS No Micro Labs/Results Exist for Patient BLOOD ADMIN RESULTS Information is not available MEDICATIONS HOME MEDICATIONS Status RXNORM NDC Medication Dose Route Frequency Dates Comments Reported By Updated By Drug Treatment Unknown DISCHARGE MEDICATIONS Status RXNORM NDC Medication Dose Route Frequency Dates Dis pense Data Comments Physician Updated By No Discharge Medication Info rmation Available INPATIENT MEDICATIONS Status RXNORM NDC Medication Dose Route Frequency Rat e Quantity Dates Indication Dispense Data Comments Physician Updated By No Inpatient Medication Info rmation Available SOCIAL HISTORY SOCIAL HISTORY - Smoking Status [...] is no t available SOCIAL HISTORY - [place] Affiliation [place] information is not av ailable SOCIAL HISTORY - Legal Sex Legal Sex : Female (finding) SOCIAL HISTORY - Sexual Behavior Sexual Orientation Gender Identity SNOMED-CT Description SNO MED -CT Description Activity Level No of Partners Partner Type UpdatedBy Information is not available SOCIAL HISTORY - Occupation Occupation information is no t available MEDICAL EQUIPMENT MEDICAL EQUIPMENT Device Status Quantity Dates Procedure Comments Updated By Orthopedic cement extraction system MARY ANN: )[id number] Assigning Authority: FDA Device Identifier:[id number] ACTIVE 2 Implanted: August 21, 2025 ARTHROPLASTY TOTAL KNEE RIGHT [id number] on August 21, 2025 3:04:12 PM UTC Uncoated knee tibia prosthesis, metallic MARY ANN: )[id number] 1 Assigning Authority: FDA Device Identifier:[id number] ACTIVE 1 Implanted: August 21, 2025 ARTHROPLASTY TOTAL KNEE RIGHT [id number] on August 21, 2025 3:11:03 PM UTC Knee femur prosthesis MARY ANN: )[id number] Assigning Authority: FDA Device Identifier:[id number] ACTIVE 1 Implanted: August 21, 2025 ARTHROPLASTY TOTAL KNEE RIGHT [id number] on August 21, 2025 3:13:54 PM UTC Tibial insert MARY ANN: )[id number] Assigning Authority: FDA Device Identifier:[id number] ACTIVE 1 Implanted: August 21, 2025 ARTHROPLASTY TOTAL KNEE RIGHT [id number] on August 21, 2025 3:16:50 PM [place] Polyethylene patella prosthesis MARY ANN: )[id number] 1 Assigning Authority: FDA Device Identifier:[id number] ACTIVE 1 Implanted: August 21, 2025 ARTHROPLASTY TOTAL KNEE RIGHT [id number] on August 21, 2025 3:17:27 PM [facility] ENCOUNTERS ENCOUNTER INFORMATION Reason for Visit M17.11 Admission September 04, 2025 3:28:[address] [address] Discharge September 04, 2025 3:28:00 PM [facility] DISCHARGED TO HOME OR SELF CARE ENCOUNTER DIAGNOSES Notes information is not dontae ilable. Code System Diagnosis Onset Date Diagnosis information is not available. ABSTRACT DIAGNOSES Code System Diagnosis Updated By Abatement Date M17.11 ICD10 UNILATERAL PRIMA RY OSTEOARTHRITIS, RIGHT KNEE [id number] on September 08, 2025 1:13:26 PM [facility] M17.11 ICD10 UNILATERAL PRIMA RY OSTEOARTHRITIS, RIGHT KNEE [id number] on September 08, 2025 1:13:30 PM [facility] M79.89 ICD10 OTHER SPECIFIED SOFT TISSUE DISORDERS [id number] on September 08, 2025 1:13:46 PM [facility] CARE TEAM Care Social Insurance Adviser Role EKTA BRIAN Primary Attending EKTA BRIAN Referring EKTA BRIAN Admitting LUKE VERDUGO Primary Care CARE TEAM CARE tyre fitter Role on Team Location Telecom Status Start Date End Selwyn e Updated By LUCINA Aguilar APRN PCP [address], [place], [address] normal September 04, 2025 5:00:00 AM UTC September 04, 2025 3:28:00 PM [facility] [id number] on September 04, 2025 3:29:20 PM [facility] SNEHAL DASH MD Referring [address] [place] [address], [id number] normal September 04, 2025 5:00:00 AM [facility] September 04, 2025 3:28:00 PM [facility] [id number] on September 04, 2025 3:29:20 PM [facility] SNEHAL DASH MD Attending [address] [place] [address], [id number] normal September 04, 2025 5:00:00 AM [facility] September 04, 2025 3:28:00 PM [facility] [id number] on September 04, 2025 3:29:20 PM [facility] SNEHAL DASH MD Admitting [address] [place] [address], [id number] normal September 04, 2025 5:00:00 AM [facility] September 04, 2025 3:28:00 PM [facility] [id number] on September 04, 2025 3:29:20 PM [facility] INSURANCE PROVIDERS INSURANCE PROVIDER Coverage Status - Effective Date Coverage Type Payor Plan Order Relationship To Subscriber Insurance Plan No Insurance Plan 2024-09-18 M PRIMARY [id number] [phone] [facility] HUMAN A 2024-09-18 W SECONDARY [phone] [facility]
[2025-09-11] VITALS (8 sets, daily range): BP systolic 115–154; BP diastolic 49–68; PULSE 94–105; RESP 16–17; TEMP 37.1–37.2; O2SAT 93–99; BMI 27.4
--- OUTSIDE RECORDS SUMMARY | 2025-09-11 19:19 | XMS_ITS | Clinical Summary ---
[facility] Organization [facility] Address [address] [place] [address] Care Team Providers Care Desktop Support Consultant Name Role Phone Otis Bray MD Primary Care Provider [phone] Allergies No known active allergies Medications Spiriva [...] Active vitamin D (ERGOCALCIFEROL ) 1.25 MG (56936 UT) capsule capsule TAKE 1 CAPSULE BY [...] Discontinued 12/19/2022 Medical Devices Implanted Type Area Coat Presser Device Identifier Shelf Expiration Date Model / Serial / Lot Hemost Abs Surgifoam Sz100 8x12 10mm - [id number] Implanted:Qty : 1 on 12/26/2022 by Rolan Beckwith MD at [facility] Implant N/A: Spine Lumbar [employer] J [employer] J 1974 / / Kt Seal Hemos Abs Floseal Matrx Fast/Prep 10ml - [id number] Implanted:Qty : 1 on 12/26/2022 by Rolan Beckwith MD at [facility] Implant N/A: Spine Lumbar [facility] 10/19/2024 [id number] / / [id number] Allogr Bone Vivigen Celluar Matrx Formable 5cc - [id number] Implanted:Qty : 1 on 12/26/2022 by Rolan Beckwith MD at [facility] Implant N/A: Spine Lumbar [facility] 09/28/2023 [id number] / / [id number] Scrw Expedium Pa Ti 7x45mm - [id number] Implanted:Qty : 1 on 12/26/2022 by Rolan Beckwith MD at [facility] Implant N/A: Spine Lumbar DEPU[employer] SPINE 12/27/2022 [id number] / / N/A Scrw Expedium Pa Ti 6x50mm - [id number] Implanted:Qty : 2 on 12/26/2022 by Rolan Beckwith MD at [facility] Implant N/A: Spine Lumbar DEPUY SPINE 12/27/2022 [id number] / / N/A Scrw Expedium Pa Ti 7x40mm - [id number] Implanted:Qty : 1 on 12/26/2022 by Rolan Beckwith MD at [facility] Implant N/A: Spine Lumbar DEPUY SPINE 12/27/2022 [id number] / / N/A Ulysses Prebnt Spine Expedium Ti 5.5x40mm - [id number] Implanted:Qty : 2 on 12/26/2022 by Rolan Beckwith MD at [facility] Implant N/A: Spine Lumbar DEPUY SPINE 12/27/2022 [id number] / / N/A Scrw [address] - [id number] Implanted:Qty : 4 on 12/26/2022 by Rolan Beckwith MD at [facility] Implant N/A: Spine Lumbar DEPUY SPINE 12/27/2022 [id number] / / N/A Spacr Tpal Peek [id number] - [id number] Implanted:Qty : 1 on 12/26/2022 by Rolan Beckwith MD at [facility] Implant N/A: Spine Lumbar DEPUY SPINE 12/27/2022 [id number] / / N/A Procedures Procedure Name Priority Date/Time Associated Diagnosis Comments HEMOGLOBIN A1C Routine 12/19/2022 11:44 AM EDT from Last 3 Months or Most Recently Relevant to Health Maintenance Results * (ABNORMAL) Hemoglobin A1c (12/19/2022 11:44 AM EDT) Hemoglobin A1C 6.20(H) 4.80 - 5.60 % 12/19/2022 12:20 PM EDT [facility] Blood Venipuncture / Unknown 12/19/2022 11:44 AM EDT 12/19/2022 11:58 AM EDT Narrative [facility] - 12/19/2022 12:20 PM EDT Hemoglobin A1C Ranges: Increased Risk for Diabetes 5.7% to 6.4% Diabetes >= 6.5% Diabetic Goal < 7.0% us Rolan Beckwith MD LAB BLOOD ORDERABLES Final Res ult [facility]
[address] [place] [address], from Last 3 Months or Most Recently Relevant to Health Maintenance Insurance [facility] D[employer]PLETE MEDIC Care Teams Desktop Support Consultant Relationship Specialty Start Date End Date Otis Bray MD [address] [place] [address] [place] [address] PCP - General Adolescent Medicine 08/19/19
--- OUTSIDE RECORDS SUMMARY | 2025-09-11 19:19 | XMS_ITS ---
Author Organization [facility] Address [address] [place] [address] Phone Care Team Providers Care Lottery Office Manager Name Role Phone Stephenie Oakes APRN Primary Care Provid randall Sexton MD, Blanco Vaca Unavailable [phone] Plan of Treatment No Plan of Treatment Recorded Assessments Includes: Assessments for all patient encounters No Assessments Recorded Medical Equipment - Implanted Devices Includes: Current and historical Devices No Medical Equipment Recorded Medications Administered Includes: Administered Medications in patient's chart No Administered Medications Recorded Results Includes: Results from 09/11/2024 through 09/11/2025 No Results Recorded For Specified Dates Social History Description Last Updated Sex - Female 11/08/2022 Last Documented On 3 11:34AM ; [facility] Smoking Status Unknown Medical History Includes: Medical History in patient's chart No Medical History Recorded Family History Includes: Family History in patient's chart No Family History Recorded Care Lottery Office Manager Name (Identifier) Role/Relation Location/Telecom Last Documented By Stephenie Oakes APRN ([id number]) Primary care physician (occupation) [address] [place], [place], [place], [address] Last Documented On 11/08/2022 11:34AM ; [facility] Blanco Sexton MD ([id number]) Assigned practitioner (occupation) [address] [place] [address], [place], [address] tel: Last Documented On 11/08/2022 11:34AM ; [facility] Payer Includes: Active Insurance Policies Plan Name (Payer ID) Coverage Type Member ID Group # Subscriber (ID) Relationship Effective Dates 1 - [facility] hcare/MEDIC ARE ([id number]) [id number] Socorro Sawyer Self Last Documented On 3 1:41PM ; [facility] 2 - BCBS Medicaid ([id number]) [id number] Socorro pike Self Last Documented On 3 1:41PM ; [facility]
--- OUTSIDE RECORDS SUMMARY | 2025-09-11 19:19 | XMS_ITS | Clinical Summary ---
Author Organization Healthcare Address [address] [place] [address] Care Team Providers Care Barrel Endshaker Adjuster Name Role Phone Unavailable Primary Care Provider [...] 02/16/2016 [facility]-Zoster Vaccines (1 of 2) 02/16/2016 [id number] Vaccine (1 - 20 25- season) 2025 [facility]-Influenza Vaccine (#1) 2025 HPV Vaccines (No Doses Required) Completed [facility]-HIB Vaccines Aged Out No longer e [...]
--- OUTSIDE RECORDS SUMMARY | 2025-09-11 19:19 | XMS_ITS ---
Care Plan - [facility], [facility] Created on: September 11, 2025 Socorro Sawyer : 1965 Sex: Female Author Organization [facility] Address [address] [place] [address] Phone Care Team Providers Care Washing Machine Striper Name Role Phone Stephenie Oakes APRN Primary Care Provid er Unavailable Darshan MAYORGA, Blanco Vaca Unavailable [phone]
--- OUTSIDE RECORDS SUMMARY | 2025-09-11 19:19 | XMS_ITS | Data Portability ---
Author Organization [facility] Address [address] [place] [address] Assessment No assessment recorded. Plan of Treatment Reminders Order Date Submit Date Provider Last Modified By Organization Details Last Modified Time Details Appointments None record ed. Lab None record ed. Referral None record ed. Procedures None record ed. Surgeries None record ed. Imaging None record ed. Medication Orders None record ed. Patient TargetsNo targets recorded. Patient Instructions Encounter Date Encounter Id Patient Instructions Last Modified By Organization Details Last Modified Time 02/02/2024 [id number] 1. Post-operativ e nasal debridement performed in office. Splint removal performed. Full risks, complications, and benefits of operative versus non-operative intervention have been thoroughly discussed. Understanding was expressed, informed consent given, and we will proceed with the discussed operative treatment plan. There were no questions for me at the end of the office visit. 2. Advised pt to use antibiotic ointment and nasal rinse routinely in nasal cavity. 3. Finish current course of antibiotics. 4. Follow up in [place] as directed. [email or web address] Not available 02/02/2024 11:32:29 POV1 septoplasty/ITR/ b/l max and ant ethmoidectomy Splints removed, healing as expected Cont antibiotic ointment anterior nares Finish PO course antibiotics No nose blowing Start nasal saline irrigations F/u couple weeks in [facility] for repeat debridement [email or web address] Not available 02/02/2024 12:28:57 Reason for Referral None Reported. Medical Equipment None Reported. Vitals Date Recorded Body height Body mass index (BMI) Body weight Body temperature Provider Name and Address Organization Details Last Updated DateTime 02/02/2024 162.56 cm 27.6 kg/m2 54064.93 g 98.1 [degF] Mian Washburn [facility] 02/02/2024 10:58:13 Social History None recorded. Functional Status None recorded. Mental Status None recorded. Family History Nothing Reported. Medical History No medical history recorded. Gynecological HistoryNo gynecological history recorded. Obstetrics History GPAL:G 0 P 0 0 0 0 Past Encounters Encounter ID Performer Location Encounter Start Date Encounter Closed Date Diagnosis/Indication Diagnosis SNOMED-CT Code Diagnosis ICD10 Code Diagnosis IMO Codes Diagnosis Note [id number] EKTA DA SILVA MD [facility] [address] [place] [address] 02/02/2024 10:41:08 02/02/2024 16:17:04 Postoperative visit [id number] Z48.89 septoplast y and bilateral ESS performed in [place]. 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 - exhibiting expected s/p symptoms and appearances EKTA DA SILVA MD [address] [place], [address], [place] [facility] 02/02/2024 12:29:06 OBGyn Episode No OBEpisode recorded.
--- NOTE | 2025-09-11 19:27 | PC.NURSE ---
Palpable pedal pulses, marked, Dr Roach at bedside
--- NOTE | 2025-09-11 19:29 | XR_ITS ---
PROCEDURE INFORMATION: Exam: XR Right Knee Exam date and time: 09/11/2025 8:23 PM Age: 60 years old Clinical indication: Pain; Knee; Right; Prior surgery; Surgery date: <1 month; Surgery type: Surgery aug 21; Additional info: Concern for post op infection TECHNIQUE: Imaging protocol: Radiologic exam of the right knee. Views: 3 views. COMPARISON: MR KNEE RT WO CON 01/28/2025 9:36 AM FINDINGS: Bones/joints: Status post right knee total arthroplasty. Hardware is intact. No fracture, dislocation, or focal lesions. Large suprapatellar joint effusion. Soft tissues: Diffuse soft tissue attenuation over the anterior knee seen on cross-table view which may represent severe edema with a possible fluid component. No soft tissue free air. IMPRESSION: Status post right knee total arthroplasty with a large suprapatellar joint effusion. Diffuse soft tissue attenuation over the anterior knee which may represent severe edema with a possible fluid component. Ultrasound may be considered for further characterization.
[2025-09-11 19:35] LABS: Hematocrit 36.2 % (37.0-47.0); Hemoglobin 12.0 g/dL (12.2-16.2); Immature Granulocytes % 0.9 %; Mean Corpuscular HGB Conc 33.1 g/dL (31.8-35.4); Mean Corpuscular Hemoglobin 27.7 pg (27.0-31.2); Mean Corpuscular Volume 83.6 fl (81-99); Nucleated Red Blood Cells % 0 %; Platelet Count 369 K/mm3 (142-424); Red Blood Count 4.33 M/mm3 (4.20-5.40); Red Cell Distribution Width-SD 50.8 fL; White Blood Count 23.7 K/mm3 (4.8-10.8)
[2025-09-11 19:42] LABS: Alanine Aminotransferase 23 U/L (12-78); Albumin Level 4.5 g/dl (3.5-5.0); Albumin/Globulin Ratio 1.6 (1.1-1.8); Alkaline Phosphatase 88 U/L (38-126); Anion Gap 13.7 mEq/L (5-15); Aspartate Amino Transferase 27 U/L (14-36); Bilirubin,Total 0.6 mg/dl (0.2-1.3); Blood Urea Nitrogen 14 mg/dl (7-17); Calcium 9.0 mg/dl (8.4-10.2); Carbon Dioxide 23 mmol/L (22.0-30.0); Chloride 96 mmol/L (98-107); Creatinine Clearance Estimated 87 mL/min (50-200); Creatinine,Serum 0.80 mg/dl (0.52-1.04); Estimated Glomerular Filt Rate 73 ml/min (>60); GFR (African American) 89 ML/MIN (>60); Globulin 2.9 g/dL (1.3-3.2); Glucose 140 mg/dl (74-100); Potassium 3.7 mmoL/L (3.5-5.1); Sodium 129 mmol/L (136-145); Total Protein,Serum 7.4 g/dl (6.3-8.2)
[2025-09-11 19:47] LABS: C-Reactive Protein 54.5 mg/L (0-4)
[2025-09-11 20:11] LABS: Total Cells Counted 100
[2025-09-11 20:12] LABS: Anisocytosis 1+; Burr Cells 1+; Macrocytosis 1+; Poikilocytosis 1+; Target Cells 1+
[2025-09-11 20:13] LABS: Tear Drop Cells 1+
[2025-09-11] MEDS: ONDANSETRON 4MG/2ML VIAL 4 MG IV (20:30)
[2025-09-11] MEDS: MORPHINE 4MG/ML SYRINGE 4 MG IV ×2 (20:31→21:50)
--- NOTE | 2025-09-11 20:39 | PC.NURSE ---
Spoke with [facility], speaking with them at this time.
--- NOTE | 2025-09-11 20:59 | PC.NURSE ---
Pt consent signed for needle aspiration of right knee.
--- NOTE | 2025-09-11 21:40 | PC.NURSE ---
Dr Roach at bedside performing needle aspiration, approx 42 ml pulled off. Sent to lab. Pt complains of pain, 4morphine ordered will administer and cleanse knee.
[2025-09-11] MEDS: LIDOCAINE 1% 10ML MDV 10 ML SUBCUT (21:45)
--- NOTE | 2025-09-11 21:57 | PC.NURSE ---
Morphine given, pt cannot stand for me to touch her leg, states morphine is not touching the pain. Dr Roach informed
[2025-09-11] MEDS: HYDROMORPHONE 2MG/ML SYRINGE 1 MG IV (22:07)
[2025-09-11 22:17] LABS: Appearance,Body Fld. Bloody; Source, Body Fld. Synovial
[2025-09-11 22:18] LABS: Volume,Body Fld. 50 mL
[2025-09-11 22:19] LABS: RBC,Body Fluid 100000 cells/uL (< 10 X 10^3); TNC,Body Fluid 100920 cells/uL (< 1000)
[2025-09-11 22:57] LABS: Mononuclear WBCs,Body Fluid 16 %; Polynuclear WBC,Body Fluid 84 %
[2025-09-11 22:58] LABS: Ca pyrophosphate dihyd Absent
[2025-09-11 23:17] LABS: Bacteroides fragilis Not Detected; Citrobacter Not Detected; Enterococcus faecalis Not Detected; Enterococcus faecium Not Detected; Klebsiella aerogenes Not Detected; Klebsiella pneumoniae group Not Detected; Morganella morganii Not Detected; Proteus spp. Not Detected; Salmonella spp. Not Detected; Serratia marcescens Not Detected; Staphylococcus lugdunensis Not Detected; Streptococcus pyogenes Not Detected
[2025-09-11 23:25] LABS: Streptococcus spp. Detected
--- NOTE | 2025-09-11 23:28 | PC.NURSE ---
Critical result from lab on right knee synovial fluid from [facility]. Positive for Group B strep / Streptococcus Aglactiae. Dr Roach aware
--- NOTE | 2025-09-11 23:30 | HMH.EDGENADL ---
Discharge Plan Disposition Patient Disposition: Xfer Other Condition: Good Prescriptions Prescriptions: No Action albuterol sulfate 90 mcg/actuation HFA aerosol inhaler 2 puff IH DAILYP PRN (Reason: COPD) fluticasone propionate 50 mcg/actuation spray,suspension 1 spray NS DAILY aspirin [Adult Aspirin Regimen] 81 mg tablet,delayed release (DR/EC) 81 mg PO DAILY levocetirizine 5 mg tablet 5 mg PO DAILY Trelegy Ellipta 200-62.5-25 mcg blister with device 1 inh inhalation DAILY icosapent ethyl [Vascepa] 1 gram capsule 1 g PO DAILY potassium chloride 20 mEq tablet,ER particles/crystals 20 meq PO DAILY citalopram 40 mg tablet 40 mg PO DAILY amitriptyline 100 mg tablet 100 mg PO DAILY cyclobenzaprine 10 mg tablet 10 mg PO HS metformin 1,000 mg tablet 1,000 mg PO BID Sucraid 8,500 unit/mL solution 2 ml PO 6XD Qty: 1080 3RF Rx Instructions: must administer with a meal/food ammonium lactate 12 % lotion topical amlodipine 5 mg tablet 5 mg PO DAILY lisinopril-hydrochlorothiazide 20-25 mg tablet 1 tab PO DAILY dexamethasone 4 mg tablet 4 mg PO omeprazole 20 mg capsule,delayed release(DR/EC) 20 mg PO DAILY doxycycline hyclate 100 mg tablet 100 mg PO BID ibuprofen 800 mg tablet 800 mg PO BID 30 Days Qty: 60 3RF magnesium oxide 400 mg magnesium capsule 400 mg PO .every other day Qty: 30 0RF montelukast 10 mg tablet See Rx Instructions .ROUTE .COMPLEX Qty: 90 3RF Dose Instruction: TAKE 1 TABLET EVERY DAY Rx Instructions: TAKE 1 TABLET EVERY DAY magnesium aspart,citrate,oxide 400 mg magnesium capsule 400 mg PO DAILY Qty: 30 11RF Referrals Follow up/Referrals: Stephenie Oakes APRN [Primary Care Provider, Medical] - See instructions Clinical Impressions Clinical Impression: Septic arthritis due to Streptococcus species Qualifiers: Septic arthritis location: knee Laterality: right Qualified Code(s): M00.261 - Other streptococcal arthritis, right knee Post op infection Qualifiers: Encounter type: initial encounter Postoperative infection type: unspecified type Qualified Code(s): T81.40XA - Infection following a procedure, unspecified, initial encounter Print Language Print Language: Grenadian Discharge ED Provider: Doc,Jose Raul General Adult HPI General Chief complaint: PAIN Stated complaint: Knee pain Time Seen by Provider: 09/11/25 19:28 Mode of Arrival: EMS Source of Information: Patient Description of Symptoms (Recalled from ER Triage Doc. by RN): Pt brought in by EMS from home with complaints of right knee pain s/p total knee replacement at [facility] on 08/21. Pt was given 40 oxycodone 5/325 on 09/04 and called hand stone polisher for more but was unable to picking table worker from [facility] because the holiday hours. Pt last dose was today at 14:00 she states she cannot tolerate the pain. EMS gave 4mg Zofran, 500ml NS, and 75mcg of Fentanyl in route. Pt denies any nausea, vomiting, fever, SOA, or chest pain. History of Present Illness HPI narrative: This is a 60-year-old female patient, with past medical history of hypertension, CHF, and COPD, who is presenting to the emergency department today for evaluation of right knee pain. Patient had a total knee arthroplasty on the right on August [address] Polanco who practices orthopedic surgery through [facility]. The patient tells me that over the last couple days her knee has had increasing swelling and pain. Tonight became warm. This was after riding a exercise bike for a period of time. She has had no fevers but has had chills Related Data Home Medications ?Medication ?Instructions ?Recorded ?Confirmed amitriptyline 100 mg tablet 100 mg PO DAILY Depression 08/07/18 08/12/25 citalopram 40 mg tablet 40 mg PO DAILY Depression 08/07/18 08/12/25 cyclobenzaprine 10 mg tablet 10 mg PO HS MUSCLE SPASMS 08/07/18 08/12/25 albuterol sulfate 90 mcg/actuation 2 puff inhalation DAILYP PRN COPD 06/23/20 08/12/25 aerosol inhaler fluticasone propionate 50 1 spray intranasal DAILY ALLERGIES 06/23/20 08/12/25 mcg/actuation nasal spray,suspension aspirin 81 mg tablet,delayed 81 mg PO DAILY 01/09/24 08/12/25 release (Adult Aspirin Regimen) fluticasone fur. 200 mcg-umeclid 1 inh inhalation DAILY 01/09/24 08/12/25 62.5 mcg-vilant 25 mcg inhalat.powder (Trelegy Ellipta) levocetirizine 5 mg tablet 5 mg PO DAILY 01/09/24 08/12/25 icosapent ethyl 1 gram capsule 1 g PO DAILY 10/24/24 08/12/25 (Vascepa) potassium chloride 20 mEq 20 meq PO DAILY Supplement 10/24/24 08/12/25 tablet,extended release(part/cryst) metformin 1,000 mg tablet 1,000 mg PO BID 12/05/24 08/12/25 amlodipine 5 mg tablet 5 mg PO DAILY 04/08/25 08/12/25 ammonium lactate 12 % lotion topical 04/08/25 08/12/25 lisinopril 20 1 tab PO DAILY 04/08/25 08/12/25 mg-hydrochlorothiazide 25 mg tablet dexamethasone 4 mg tablet 4 mg PO 08/12/25 08/12/25 doxycycline hyclate 100 mg tablet 100 mg PO BID 08/12/25 08/12/25 omeprazole 20 mg capsule,delayed 20 mg PO DAILY 08/12/25 08/12/25 release Previous Rx's ?Medication ?Instructions ?Recorded ibuprofen 800 mg tablet 800 mg PO BID pain, mild 30 days 08/04/21 #60 tabs magnesium oxide 400 mg PO .every other day #30 caps 12/06/24 sacrosidase 8,500 unit/mL oral 2 ml PO 6XD #1,080 mL 01/30/25 solution (Sucraid) montelukast 10 mg tablet See Rx Instructions .Route 04/14/25 .COMPLEX #90 tabs magnesium aspart,citrate,oxide 400 mg PO DAILY #30 caps 06/17/25 Allergies Allergy/AdvReac Type Severity Reaction Status Date / Time No Known Allergies Allergy Verified 08/12/25 13:24 [facility] Disclaimer: The information contained in this section may have been updated after the patient was seen, as this information can be updated by other users. Medical History Sinus mucosal thickening Sinus pressure Sinus pain Recurrent sinus infections Pulmonary emphysema Smoking greater than 30 pack years Dyspnea on exertion Chronic cough Andi's edema of vocal folds Deviated septum Depression Anxiety Arthritis Pneumonia COPD (chronic obstructive pulmonary disease) History of back pain Fibromyalgia Irritable bowel syndrome (IBS) History of gastroesophageal reflux (GERD) Allergies Hypertension History of anemia Iron deficiency Diabetes mellitus Surgical History H/O nasal septoplasty History of esophagogastroduodenoscopy (EGD) History of colonoscopy H/O abdominal hysterectomy History of repair of rotator cuff Hx laparoscopic cholecystectomy History of ankle surgery History of carpal tunnel release History of bladder repair surgery Family History Mother Family history of liver cancer Grandmother Family history of liver cancer Other Aneurysm Social History Smoking Status: Current every day smoker tobacco type: cigarettes packs per day: 1 years smoked: 30 second hand exposure: No alcohol intake: never substance use type: denies use current occupational status: disabled Travel in the last 8 weeks?: Inside the [facility] housing: house 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 current occupational exposures/hazards: Yes caffeine: Yes Have you lived/traveled outside US in past 30 days?: No Contact w/someone who lives/traveled outside US past 30 days?: No Exposure to someone with infectious disease in past 14 days?: No Do you have a fever (greater than 100.4 F or 38 C)?: No Have you tested positive for COVID-19?: No Exposed to someone with COVID-19 in past 14 days?: No Do you have a sore throat?: No Do you have a cough?: No Do you have any weakness?: No Do you have any diarrhea?: No Are you experiencing any unusual bleeding?: No Do you have any muscle aches/pain?: No Do you have any abdominal pain?: No Are you experiencing loss of taste or smell?: No Other Medical History Have you received the Flu Vaccine for this season: Yes Have you received the Pneumonia Vaccine: Yes ROS Obtained: Yes Systems reviewed as appropriate & no additional complaints except as documented Physical Exam General General appearance: other (See MDM) Respiratory Respiratory exam: Present other (See MDM) Cardiovascular Cardiovascular exam: Present other (See MDM) Neurological Exam Neurological exam: Present other (See MDM) Medical Decision Making Medical Records Medical records reviewed: Yes I reviewed the patient's medical records. Screening: Per USPSTF and CDC recommendations, given the prevalence of disease in our region, it is our hospital?s policy to screen for HIV and viral Hepatitis for all patients aged 18 and over and those with ongoing risk factors. Mo Inquiry Pt receiving controlled substance: No Mo was queried for this patient: No Vital Signs: 09/11/25 19:16 09/11/25 20:30 Temperature 98.8 F Temperature Source Oral Pulse Rate 94 H Pulse Rate [Left] 96 H Respiratory Rate 17 Blood Pressure 115/49 L Blood Pressure [Right Arm] 124/62 Blood Pressure Mean 75 Blood Pressure Mean [Right Arm] 82 Blood Pressure Source [Right Arm] Automatic Cuff Blood Pressure Position [Right Arm] Sitting 02 Sat by Pulse Oximetry 94 L 99 Oxygen Delivery Method Room Air Lab Data Lab Results 09/11/25 19:05: WBC 23.7 H*, RBC 4.33, Hgb 12.0 L, Hct 36.2 L, MCV 83.6, MCH 27.7, MCHC 33.1, RDW 16.6, Plt Count 369, MPV 10.2, Neut % (Auto) 90.3 H, Lymph % (Auto) 3.8 L, Davidson % (Auto) 4.7, Eos % (Auto) 0.0 L, Baso % (Auto) 0.3, Neut # (Auto) 21.4 H, Lymph # (Auto) 0.9, Davidson # (Auto) 1.1 H, Eos # (Auto) 0.0, Baso # (Auto) 0.1, Total Counted 100, Neutrophils % (Manual) 90 H, Lymphocytes % (Manual) 5 L, Monocytes % (Manual) 5, Platelet Estimate Normal, RBC Morphology Not Reportable, Poikilocytosis 1+, Anisocytosis 1+, Macrocytosis 1+, Target Cells 1+, Tear Drop Cells 1+, Sheldon Cells 1+, ESR 15, Sodium 129 L, Potassium 3.7, Chloride 96 L, Carbon Dioxide 23, Anion Gap 13.7, BUN 14, Creatinine 0.80, Estimated Creat Clear 87, Estimated GFR 73, Est GFR ( Amer) 89, Glucose 140 H, Calcium 9.0, Total Bilirubin 0.6, AST 27, ALT 23, Alkaline Phosphatase 88, C-Reactive Protein 54.5 H, Total Protein 7.4, Albumin 4.5, Globulin 2.9, Albumin/Globulin Ratio 1.6 09/11/25 19:42: Lactate 0.7 09/11/25 21:41: Fluid Source Synovial, Fluid Volume 50, Fluid Appearance Bloody, Fluid RBC (Auto) [id number], Fld Tot Nucleated Cell [id number], Fld Polynuclear WBCs % 84, Fld Mononuclear WBCs % 16, Synov Monosodium Urate Absent, Synov Ca Pyrophos Dihyd Absent, Syn A. prevotii/vaginalis PCR Not detected, Syn B. fragilis (PCR) Not detected, Syn blaCTX-M Ceph Res Gene Not applicable, Syn blaIMP Carb Res Gene Not applicable, Syn blaKPC Carb Res Gene Not applicable, Syn blaNDM Carb Res Gene Not applicable, Syn blaVIM Carb Res Gene Not applicable, Syn C. albicans (PCR) Not detected, Syn Gricelda sp. (PCR) Not detected, Syn C. avidum/granul (PCR) Not detected, Syn Citrobacter sp. (PCR) Not detected, Syn C. perfringens (PCR) Not detected, Syn E. cloacae cmplx (PCR) Not detected, Syn E. faecalis (PCR) Not detected, Syn E. faecium (PCR) Not detected, Syn E. coli (PCR) Not detected, Syn Finegoldia magna (PCR) Not detected, Syn H. influenzae (PCR) Not detected, Syn Kingella kingae (PCR) Not detected, Syn K. pneumoniae grp PCR Not detected, Syn K. aerogenes (PCR) Not detected, Syn mecA/C&MREJ A R Gene Not applicable, Syn M. morganii (PCR) Not detected, Syn N. gonorrhoeae (PCR) Not detected, Syn OXA-48 Carb Res Gene Not applicable, Syn Parvimonas micra (PCR) Not detected, Syn Peptoniphilus (PCR) Not detected, Syn P. anaerobius (PCR) Not detected, Syn Proteus sp. (PCR) Not detected, Syn P. aeruginosa (PCR) Not detected, Syn Salmonella sp. (PCR) Not detected, Syn S. marcescens (PCR) Not detected, Syn S. lugdunensis (PCR) Not detected, Syn S. aureus (PCR) Not detected, Syn Streptococcus sp (PCR) Detected A, Syn S. agalactiae (PCR) Detected A, Syn S. pneumoniae (PCR) Not detected, Syn S. pyogenes (PCR) Not detected, Syn aRdha/B-Vanc Res Genes Not applicable 09/11/25 19:05 09/11/25 19:05 Orders (Tests/Meds): ED MEDICATIONS Generic Name Dose Route Start Last Admin Trade Name Freq PRN Reason Stop Dose Admin Vancomycin/PEG/NADA/Lysine/Water 1.25 gm in 250 mls @ 125 mls/hr 09/11/25 23:15 Vancomycin 1.25gm/250ml (Peg) Premix IV 09/12/25 01:14 ONCE ONE Miscellaneous 1 each 09/11/25 23:00 Vancomycin Consult Request NOTAPPLIC 10/11/25 22:59 CONSULT [facility]ARMACY [facility] Discontinued Medications Generic Name Dose Route Start Last Admin Trade Name Freq PRN Reason Stop Dose Admin Hydromorphone HCl 1 mg 09/11/25 22:04 09/11/25 22:07 Hydromorphone 2mg/Ml Syringe IV 09/11/25 22:05 1 mg ONCE ONE Administration Lidocaine HCl 10 ml 09/11/25 21:07 09/11/25 21:45 Lidocaine 1% 10ml Mdv SUBCUT 09/11/25 21:08 10 ml ONCE ONE Administration Morphine Sulfate 4 mg 09/11/25 20:24 09/11/25 20:31 Morphine 4mg/Ml Syringe IV 09/11/25 20:25 4 mg ONCE ONE Administration Morphine Sulfate 4 mg 09/11/25 21:47 09/11/25 21:50 Morphine 4mg/Ml Syringe IV 09/11/25 21:48 4 mg ONCE ONE Administration Ondansetron HCl 4 mg 09/11/25 20:24 09/11/25 20:30 Ondansetron 4mg/2ml Vial IV 09/11/25 20:25 4 mg ONCE ONE Administration ORDERS Category Date Time Status Knee XR right 3 views [XR knee RT 3V] Stat Exams 09/11/25 19:29 Completed Body Fluid: Cell Count w/ Diff Stat Lab 09/11/25 21:41 Completed CBC w/Auto Diff [Complete Blood Count Auto Diff] Stat Lab 09/11/25 19:05 Completed CMP [Comprehensive Metabolic Panel] Stat Lab 09/11/25 19:05 Completed CRP [C-Reactive Protein] Stat Lab 09/11/25 19:05 Completed ESR [Erythrocyte Sedimentation Rate] Stat Lab 09/11/25 19:05 Completed Joint Infection Panel, PCR Stat Lab 09/11/25 21:41 Completed Lactic Acid Stat Lab 09/11/25 19:42 Completed Synovial Fluid Crystals Stat Lab 09/11/25 21:41 Completed Blood Culture Stat Micro 09/11/25 19:42 Received Body Fluid Cult & Gram Stain Stat Micro 09/11/25 21:41 Received Medical Decision Narrative: In summary, this is a 60-year-old female patient who is presenting to the emergency department a day for evaluation of right sided knee pain after having a total knee arthroplasty on August [address] Polanco of the orthopedic surgery group through [facility]. The patient's past medical history is include hypertension, diabetes, COPD, congestive heart failure. On initial evaluation of the patient they were resting comfortably in no acute distress and nontoxic in appearance. They are hemodynamically stable, saturating well room air, and are neurologically intact. Patient does appear to have chills. She is normotensive and has a heart rate greater than 90. Breath sounds are clear bilaterally. She is not requiring oxygen. The right knee has an obvious effusion as well as obvious erythema streaking from the incision and significant warmth. Differential diagnosis includes septic arthritis, hardware infection, hardware malfunction, hemarthrosis among others. Workup was initiated with hematologic labs including a lactic acid and blood cultures. Labs were personally turbid by me and demonstrated marked leukocytosis of 23.7, elevated CRP at 54.5, no significant electrolyte derangements or evidence of acute kidney injury. We also proceeded with an x-ray of the right knee that was personally interpreted by me and demonstrates no evidence of hardware dislodgment or periprosthetic fractures I discussed this case directly with her orthopedic surgeon on the phone and he requested that we perform an arthrocentesis at the bedside prior to transferring the patient to their hospital. The patient was prepped and draped in usual sterile fashion and Betadine was used to sterilize the knee. A wheal was created for analgesia with lidocaine. We used a 20-gauge spinal needle to perform an arthrocentesis and we were able to aspirate 43 mL of purulent bloody fluid from the knee. The patient's arthrocentesis results returned showing greater than 100,000 total nucleated cells of which 84% are polynuclear white blood cells. This is highly consistent with septic arthritis. At this point I touch base with Dr. Polanco again and he recommended transfer to their facility for higher level of care and we also elected to start the patient on broad-spectrum antibiotics with vancomycin. I additionally discussed his case with the nurse practitioner on-call for [facility], Tyra. She has agreed to accept this patient on behalf of Dr. Vazquez. Prior to transfer to the outside hospital the patient's PCR for joint fluid returned positive for strep agalactiae. Patient was ultimately transferred in stable condition. Procedures Joint Aspiration/Injection Joint Asp./Inject. 1: Time Out Performed: Yes Side of body: right Joint Aspirated: knee Ultrasound Guidance: No Skin Prep: Povidone-Iodine1% Local Anesthetic: lidocaine 1% Amount of anesthesia used (mL): 5 Needle Size Used: 18G Fluid Obtained: bloody (And purulent) Total fluid obtained (mL): 43 Patient Tolerated Procedure: well Complications: none Critical Care Critical Care Time Critical Care Time: No
[2025-09-11] MEDS: VANCOMYCIN/WATER FOR INJ (PEG) 1.25 GM/250 ML PIGGYBACK IV (23:34)
--- NOTE | 2025-09-11 23:51 | PC.NURSE ---
Spoke with [facility] to make aware of transfer.
[2025-09-12] MEDS: HYDROMORPHONE 2MG/ML SYRINGE 1 MG IV (00:03)
[2025-09-12 08:30] LABS: Acinetobacter calcoaceticus-ba Not Detected; Bacteroides fragilis Not Detected; Candida auris Not Detected; Candida glabrata Not Detected; Enterobacterales Not Detected; Enterococcus faecalis Not Detected; Enterococcus faecium Not Detected; Klebsiella aerogenes Not Detected; Klebsiella pneumoniae grp Not Detected; Proteus spp. Not Detected; Salmonella spp. Not Detected; Serratia marcescens Not Detected; Staphylococcus epidermidis Not Detected; Staphylococcus lugdunensis Not Detected; Staphylococcus spp. Not Detected; Stenotrophomonas maltophilia Not Detected; Streptococcus agalactiae(GrpB) Detected; Streptococcus pyogenes Group A Not Detected; Streptococcus spp. Detected
[2025-09-12 09:28] LABS: Acinetobacter calcoaceticus-ba Not Detected; Bacteroides fragilis Not Detected; Candida auris Not Detected; Candida glabrata Not Detected; Enterobacterales Not Detected; Enterococcus faecalis Not Detected; Enterococcus faecium Not Detected; Klebsiella aerogenes Not Detected; Klebsiella pneumoniae grp Not Detected; Proteus spp. Not Detected; Salmonella spp. Not Detected; Serratia marcescens Not Detected; Staphylococcus epidermidis Not Detected; Staphylococcus lugdunensis Not Detected; Staphylococcus spp. Not Detected; Stenotrophomonas maltophilia Not Detected; Streptococcus agalactiae(GrpB) Detected; Streptococcus pyogenes Group A Not Detected; Streptococcus spp. Detected
--- NOTE | 2025-09-12 15:45 | PC.NURSE ---
positive blood cultures received from [place] in the lab. This nurse called [facility] where the pt was transferred. Results were printed and faxed to [facility] [address] [facility] who i gave the verbal results to.
== END 2025-09-12 00:15 | disposition other institution (70) ==
PROVIDERS: Emergency Provider Student in an Organized Health Care Education/Training Program; PCP Nurse Practitioner Family
DX: M00.261 Other streptococcal arthritis, right knee (principal); T84.53XA Infection and inflammatory reaction due to internal right knee prosthesis, initial encounter; M25.561 Pain in right knee; F17.210 Nicotine dependence, cigarettes, uncomplicated; B95.1 Streptococcus, group B, as the cause of diseases classified elsewhere
CPT/HCPCS: 73562; 80053; 83605; 85007; 85025; 85651; 86140; 87040; 87070; 87077; 87154; 87186; 87205; 87999; 89051; 89060; 96365; 96375; 96376; 99285; J1171; J2003; J2270; J2405; J3375